=== PATIENT | female | born 1960 | race Caucasian/White ===

== ENCOUNTER 2015-12-20 15:02 | Outpatient (RCR) | payer BC ==
[~2015-12-20 15:02] MED LIST: ACET500C4 PO; ACHD5005 PO; HYDR-34 PO; HYDR-3583 PO; LISI-552 PO; LISI1TAB PO; LISI1TAB6 PO; LORA0.5T PO; MORP-34 PO; MORP100T37 PO; ONDANSETRON 8 MG, DEXAMETHASONE 4 MG/NS 50 ML IVPB (Cancer Ctr) IV SCH; OXYC5TAB71 PO
[2016-06-07] MEDS ORDERED: PROM25TA14 PO (16:29)
== END 2016-03-19 | disposition home or self-care (01) ==
LOC: PAR 15:02
PROVIDERS: ATTEND Internal Medicine Hematology & Oncology
DX: C20 Malignant neoplasm of rectum (principal); I10 Essential (primary) hypertension; Z79.899 Other long term (current) drug therapy; Z92.21 Personal history of antineoplastic chemotherapy; Z92.3 Personal history of irradiation
CPT/HCPCS: 96374

== ENCOUNTER 2016-02-27 12:45 | Outpatient (RCR) | payer BC, MEDICAID ==
[2015-12-05 13:47] LABS: BASOPHILS # (AUTO) 0.1 10^3/uL (0.0-0.1); BASOPHILS % (AUTO) 3 % (0-10); EOSINOPHILS # (AUTO) 0.4 10^3/uL (0.0-0.3); EOSINOPHILS % (AUTO) 12 % (0-10); LYMPHOCYTES # (AUTO) 0.9 X 10^3 (1.0-4.0); LYMPHOCYTES % (AUTO) 29 % (12-44); MEAN CORPUSCULAR HEMOGLOBIN 28 PG (25-34); MEAN CORPUSCULAR HGB CONC 32 G/DL (32-36); MEAN CORPUSCULAR VOLUME 86 FL (80-99); MEAN PLATELET VOLUME 8.6 FL (7.4-10.4); MONOCYTES # (AUTO) 0.4 X 10^3 (0.0-1.0); MONOCYTES % (AUTO) 12 % (0-12); NEUTROPHILS # (AUTO) 1.5 X 10^3 (1.8-7.8); NEUTROPHILS % (AUTO) 45 % (42-75); PLATELET COUNT 329 10^3/uL (130-400); RED BLOOD COUNT 3.61 10^6/uL (4.35-5.85); RED CELL DISTRIBUTION WIDTH 15.1 % (10.0-14.5); WHITE BLOOD COUNT 3.3 10^3/uL (4.3-11.0)
[2015-12-05 14:19] LABS: ALANINE AMINOTRANSFERASE 17 U/L (0-55); ALBUMIN 3.4 G/DL (3.2-4.5); ANION GAP 12 MMOL/L (5-14); ASPARTATE AMINO TRANSFERASE 14 U/L (5-34); BILIRUBIN,TOTAL 0.1 MG/DL (0.1-1.0); BLOOD UREA NITROGEN 11 MG/DL (7-18); BUN/CREATININE RATIO 13; CALCIUM 8.8 MG/DL (8.5-10.1); CARBON DIOXIDE 21 MMOL/L (21-32); CHLORIDE 106 MMOL/L (98-107); CREATININE SERUM 0.88 MG/DL (0.60-1.30); GFR ESTIMATED > 60; GLUCOSE 104 MG/DL (70-105); MAGNESIUM 1.5 MG/DL (1.8-2.4); POTASSIUM 3.6 MMOL/L (3.6-5.0); SODIUM 139 MMOL/L (135-145); TOTAL PROTEIN 6.2 G/DL (6.4-8.2)
[2015-12-18 14:07] LABS: BASOPHILS # (AUTO) 0.1 10^3/uL (0.0-0.1); BASOPHILS % (AUTO) 2 % (0-10); EOSINOPHILS # (AUTO) 0.4 10^3/uL (0.0-0.3); EOSINOPHILS % (AUTO) 10 % (0-10); LYMPHOCYTES # (AUTO) 0.9 X 10^3 (1.0-4.0); LYMPHOCYTES % (AUTO) 20 % (12-44); MEAN CORPUSCULAR HEMOGLOBIN 29 PG (25-34); MEAN CORPUSCULAR HGB CONC 33 G/DL (32-36); MEAN CORPUSCULAR VOLUME 88 FL (80-99); MEAN PLATELET VOLUME 7.9 FL (7.4-10.4); MONOCYTES # (AUTO) 0.4 X 10^3 (0.0-1.0); MONOCYTES % (AUTO) 10 % (0-12); NEUTROPHILS # (AUTO) 2.6 X 10^3 (1.8-7.8); NEUTROPHILS % (AUTO) 59 % (42-75); PLATELET COUNT 325 10^3/uL (130-400); RED BLOOD COUNT 3.14 10^6/uL (4.35-5.85); RED CELL DISTRIBUTION WIDTH 16.2 % (10.0-14.5); WHITE BLOOD COUNT 4.4 10^3/uL (4.3-11.0)
[2015-12-18 14:33] LABS: ALANINE AMINOTRANSFERASE 22 U/L (0-55); ALBUMIN 3.4 G/DL (3.2-4.5); ANION GAP 10 MMOL/L (5-14); ASPARTATE AMINO TRANSFERASE 15 U/L (5-34); BILIRUBIN,TOTAL 0.3 MG/DL (0.1-1.0); BLOOD UREA NITROGEN 11 MG/DL (7-18); BUN/CREATININE RATIO 13; CARBON DIOXIDE 26 MMOL/L (21-32); CHLORIDE 102 MMOL/L (98-107); CREATININE SERUM 0.83 MG/DL (0.60-1.30); GFR ESTIMATED > 60; GLUCOSE 96 MG/DL (70-105); MAGNESIUM 1.5 MG/DL (1.8-2.4); POTASSIUM 3.7 MMOL/L (3.6-5.0); SODIUM 138 MMOL/L (135-145); TOTAL PROTEIN 6.1 G/DL (6.4-8.2)
[2016-01-02 11:31] LABS: BASOPHILS # (AUTO) 0.1 10^3/uL (0.0-0.1); BASOPHILS % (AUTO) 3 % (0-10); EOSINOPHILS # (AUTO) 0.3 10^3/uL (0.0-0.3); EOSINOPHILS % (AUTO) 6 % (0-10); LYMPHOCYTES # (AUTO) 0.8 X 10^3 (1.0-4.0); LYMPHOCYTES % (AUTO) 21 % (12-44); MEAN CORPUSCULAR HEMOGLOBIN 28 PG (25-34); MEAN CORPUSCULAR HGB CONC 32 G/DL (32-36); MEAN CORPUSCULAR VOLUME 90 FL (80-99); MEAN PLATELET VOLUME 8.2 FL (7.4-10.4); MONOCYTES # (AUTO) 0.6 X 10^3 (0.0-1.0); MONOCYTES % (AUTO) 14 % (0-12); NEUTROPHILS # (AUTO) 2.3 X 10^3 (1.8-7.8); NEUTROPHILS % (AUTO) 57 % (42-75); PLATELET COUNT 280 10^3/uL (130-400); RED BLOOD COUNT 3.03 10^6/uL (4.35-5.85); RED CELL DISTRIBUTION WIDTH 17.6 % (10.0-14.5)
[2016-01-02 12:04] LABS: ALANINE AMINOTRANSFERASE 15 U/L (0-55); ALBUMIN 3.4 G/DL (3.2-4.5); ANION GAP 8 MMOL/L (5-14); ASPARTATE AMINO TRANSFERASE 11 U/L (5-34); BILIRUBIN,TOTAL 0.2 MG/DL (0.1-1.0); BLOOD UREA NITROGEN 8 MG/DL (7-18); BUN/CREATININE RATIO 9; CALCIUM 8.3 MG/DL (8.5-10.1); CARBON DIOXIDE 25 MMOL/L (21-32); CHLORIDE 107 MMOL/L (98-107); CREATININE SERUM 0.85 MG/DL (0.60-1.30); GFR ESTIMATED > 60; GLUCOSE 126 MG/DL (70-105); MAGNESIUM 1.4 MG/DL (1.8-2.4); POTASSIUM 3.8 MMOL/L (3.6-5.0); SODIUM 140 MMOL/L (135-145); TOTAL PROTEIN 6.1 G/DL (6.4-8.2)
[2016-01-15 11:11] LABS: BASOPHILS # (AUTO) 0.1 10^3/uL (0.0-0.1); BASOPHILS % (AUTO) 1 % (0-10); EOSINOPHILS # (AUTO) 0.1 10^3/uL (0.0-0.3); EOSINOPHILS % (AUTO) 3 % (0-10); LYMPHOCYTES # (AUTO) 0.7 X 10^3 (1.0-4.0); LYMPHOCYTES % (AUTO) 13 % (12-44); MEAN CORPUSCULAR HEMOGLOBIN 30 PG (25-34); MEAN CORPUSCULAR HGB CONC 32 G/DL (32-36); MEAN CORPUSCULAR VOLUME 92 FL (80-99); MONOCYTES # (AUTO) 0.3 X 10^3 (0.0-1.0); MONOCYTES % (AUTO) 6 % (0-12); NEUTROPHILS % (AUTO) 77 % (42-75); PLATELET COUNT 311 10^3/uL (130-400); RED BLOOD COUNT 3.32 10^6/uL (4.35-5.85); RED CELL DISTRIBUTION WIDTH 19.1 % (10.0-14.5); WHITE BLOOD COUNT 5.2 10^3/uL (4.3-11.0)
[2016-01-15 11:35] LABS: ALANINE AMINOTRANSFERASE 11 U/L (0-55); ALBUMIN 3.8 G/DL (3.2-4.5); ANION GAP 9 MMOL/L (5-14); ASPARTATE AMINO TRANSFERASE 14 U/L (5-34); BILIRUBIN,TOTAL 0.3 MG/DL (0.1-1.0); BLOOD UREA NITROGEN 11 MG/DL (7-18); BUN/CREATININE RATIO 14; CALCIUM 8.9 MG/DL (8.5-10.1); CARBON DIOXIDE 25 MMOL/L (21-32); CHLORIDE 108 MMOL/L (98-107); GFR ESTIMATED > 60; GLUCOSE 119 MG/DL (70-105); MAGNESIUM 1.5 MG/DL (1.8-2.4); POTASSIUM 3.7 MMOL/L (3.6-5.0); SODIUM 142 MMOL/L (135-145); TOTAL PROTEIN 6.5 G/DL (6.4-8.2)
[2016-01-30 13:36] LABS: BASOPHILS # (AUTO) 0.1 10^3/uL (0.0-0.1); BASOPHILS % (AUTO) 2 % (0-10); EOSINOPHILS # (AUTO) 0.4 10^3/uL (0.0-0.3); EOSINOPHILS % (AUTO) 5 % (0-10); LYMPHOCYTES # (AUTO) 1.1 X 10^3 (1.0-4.0); LYMPHOCYTES % (AUTO) 13 % (12-44); MEAN CORPUSCULAR HEMOGLOBIN 30 PG (25-34); MEAN CORPUSCULAR HGB CONC 32 G/DL (32-36); MEAN CORPUSCULAR VOLUME 92 FL (80-99); MEAN PLATELET VOLUME 8.4 FL (7.4-10.4); MONOCYTES # (AUTO) 0.7 X 10^3 (0.0-1.0); MONOCYTES % (AUTO) 8 % (0-12); NEUTROPHILS # (AUTO) 5.8 X 10^3 (1.8-7.8); NEUTROPHILS % (AUTO) 72 % (42-75); PLATELET COUNT 381 10^3/uL (130-400); RED BLOOD COUNT 3.57 10^6/uL (4.35-5.85); RED CELL DISTRIBUTION WIDTH 18.5 % (10.0-14.5)
[2016-01-30 14:02] LABS: ALANINE AMINOTRANSFERASE 10 U/L (0-55); ALBUMIN 3.9 G/DL (3.2-4.5); ANION GAP 10 MMOL/L (5-14); ASPARTATE AMINO TRANSFERASE 16 U/L (5-34); BILIRUBIN,TOTAL 0.3 MG/DL (0.1-1.0); BLOOD UREA NITROGEN 11 MG/DL (7-18); BUN/CREATININE RATIO 13; CALCIUM 9.2 MG/DL (8.5-10.1); CARBON DIOXIDE 24 MMOL/L (21-32); CHLORIDE 105 MMOL/L (98-107); CREATININE SERUM 0.85 MG/DL (0.60-1.30); GFR ESTIMATED > 60; GLUCOSE 113 MG/DL (70-105); MAGNESIUM 1.6 MG/DL (1.8-2.4); POTASSIUM 3.3 MMOL/L (3.6-5.0); SODIUM 139 MMOL/L (135-145); TOTAL PROTEIN 6.9 G/DL (6.4-8.2)
[2016-02-01 15:39] LABS: ANION GAP 10 MMOL/L (5-14); BLOOD UREA NITROGEN 15 MG/DL (7-18); BUN/CREATININE RATIO 19; CALCIUM 8.2 MG/DL (8.5-10.1); CARBON DIOXIDE 21 MMOL/L (21-32); CHLORIDE 110 MMOL/L (98-107); GFR ESTIMATED > 60; GLUCOSE 136 MG/DL (70-105); MAGNESIUM 1.6 MG/DL (1.8-2.4); POTASSIUM 3.4 MMOL/L (3.6-5.0); SODIUM 141 MMOL/L (135-145)
[2016-02-13 11:14] LABS: BASOPHILS # (AUTO) 0.1 10^3/uL (0.0-0.1); BASOPHILS % (AUTO) 3 % (0-10); EOSINOPHILS # (AUTO) 0.4 10^3/uL (0.0-0.3); EOSINOPHILS % (AUTO) 10 % (0-10); LYMPHOCYTES # (AUTO) 0.9 X 10^3 (1.0-4.0); LYMPHOCYTES % (AUTO) 24 % (12-44); MEAN CORPUSCULAR HEMOGLOBIN 29 PG (25-34); MEAN CORPUSCULAR HGB CONC 31 G/DL (32-36); MEAN CORPUSCULAR VOLUME 93 FL (80-99); MEAN PLATELET VOLUME 8.8 FL (7.4-10.4); MONOCYTES # (AUTO) 0.4 X 10^3 (0.0-1.0); MONOCYTES % (AUTO) 11 % (0-12); NEUTROPHILS % (AUTO) 53 % (42-75); PLATELET COUNT 327 10^3/uL (130-400); RED BLOOD COUNT 3.21 10^6/uL (4.35-5.85); RED CELL DISTRIBUTION WIDTH 16.9 % (10.0-14.5); WHITE BLOOD COUNT 3.8 10^3/uL (4.3-11.0)
[2016-02-13 11:39] LABS: ALANINE AMINOTRANSFERASE 11 U/L (0-55); ALBUMIN 3.5 G/DL (3.2-4.5); ANION GAP 11 MMOL/L (5-14); ASPARTATE AMINO TRANSFERASE 15 U/L (5-34); BILIRUBIN,TOTAL 0.3 MG/DL (0.1-1.0); BLOOD UREA NITROGEN 11 MG/DL (7-18); BUN/CREATININE RATIO 14; CALCIUM 8.4 MG/DL (8.5-10.1); CARBON DIOXIDE 21 MMOL/L (21-32); CHLORIDE 107 MMOL/L (98-107); GFR ESTIMATED > 60; GLUCOSE 106 MG/DL (70-105); MAGNESIUM 1.4 MG/DL (1.8-2.4); POTASSIUM 3.4 MMOL/L (3.6-5.0); SODIUM 139 MMOL/L (135-145); TOTAL PROTEIN 6.3 G/DL (6.4-8.2)
[2016-02-18 13:46] LABS: BASOPHILS # (AUTO) 0.1 10^3/uL (0.0-0.1); BASOPHILS % (AUTO) 2 % (0-10); EOSINOPHILS # (AUTO) 0.3 10^3/uL (0.0-0.3); EOSINOPHILS % (AUTO) 6 % (0-10); LYMPHOCYTES # (AUTO) 0.8 X 10^3 (1.0-4.0); LYMPHOCYTES % (AUTO) 16 % (12-44); MEAN CORPUSCULAR HEMOGLOBIN 29 PG (25-34); MEAN CORPUSCULAR HGB CONC 32 G/DL (32-36); MEAN CORPUSCULAR VOLUME 90 FL (80-99); MEAN PLATELET VOLUME 8.5 FL (7.4-10.4); MONOCYTES # (AUTO) 0.5 X 10^3 (0.0-1.0); MONOCYTES % (AUTO) 10 % (0-12); NEUTROPHILS # (AUTO) 3.2 X 10^3 (1.8-7.8); NEUTROPHILS % (AUTO) 66 % (42-75); PLATELET COUNT 448 10^3/uL (130-400); RED BLOOD COUNT 3.05 10^6/uL (4.35-5.85); RED CELL DISTRIBUTION WIDTH 16.5 % (10.0-14.5); WHITE BLOOD COUNT 4.8 10^3/uL (4.3-11.0)
[2016-02-18 14:17] LABS: ANION GAP 9 MMOL/L (5-14); BLOOD UREA NITROGEN 6 MG/DL (7-18); BUN/CREATININE RATIO 7; CARBON DIOXIDE 24 MMOL/L (21-32); CHLORIDE 104 MMOL/L (98-107); CREATININE SERUM 0.88 MG/DL (0.60-1.30); GFR ESTIMATED > 60; GLUCOSE 129 MG/DL (70-105); POTASSIUM 3.3 MMOL/L (3.6-5.0); SODIUM 137 MMOL/L (135-145)
[~2016-02-27] VITALS: Ht 162.6 cm; Wt 88.0 kg
[~2016-02-27 12:45] MED LIST changes: +ALTEPLASE 2 MG (CATHFLO) CANCER CENTER IV ONE; +ATROPINE INJ 0.4 MG/ML SDV (CANCER CENTER) INJ SCH; +D5W IV ONE; +D5W IV SCH; +FAMOTIDINE 20MG/2ML IV (CANCER CTR) IV SCH; +FLUOROURACIL 400 MG in SYRINGE-IVPB 1 SYRINGE IV SCH; +FOSAPREPITANT 150 MG/NS 150 MG IVPB (CANCER CTR) IV PRN; +IRINOTECAN HCL IV SCH; +LEUCOVORIN CALCIUM 350 MG, LEUCOVORIN CALCIUM 50 MG in D5W 250 ML IVPB (CANCER CTR) 250 ML IV SCH; +LEUCOVORIN CALCIUM IV SCH; +LORazepam INJ 2 MG/ML VIAL CANCER CTR IV SCH; +MAGNESIUM SULFATE (CANCER CTR) 3 GM in NS (IVPB) CANCER CENTER 100 ML IV ONE; +MAGNESIUM SULFATE IV ONE; +NS IV 1000 ML (CANCER CTR) IV SCH; +NS IV 500 ML (CANCER CENTER) 500 ML ONE; +NS IV SCH; +PALONOSETRON 0.25 MG, DEXAMETHASONE 10 MG/NS 50 ML IVPB IV PRN; +PANITUMUMAB IV SCH; +POTASSIUM CHL IV ONE; +[UNRECOGNIZED DRUG - OTHER] IV ONE; +[UNRECOGNIZED DRUG - OTHER] IV SCH
[2016-02-27] MEDS ORDERED: ALTEPLASE 2 MG (CATHFLO) CANCER CENTER IV ONE (13:15)
[2016-02-27 13:19] LABS: BASOPHILS # (AUTO) 0.1 10^3/uL (0.0-0.1); BASOPHILS % (AUTO) 1 % (0-10); EOSINOPHILS # (AUTO) 0.3 10^3/uL (0.0-0.3); EOSINOPHILS % (AUTO) 3 % (0-10); LYMPHOCYTES # (AUTO) 0.9 X 10^3 (1.0-4.0); LYMPHOCYTES % (AUTO) 11 % (12-44); MEAN CORPUSCULAR HEMOGLOBIN 29 PG (25-34); MEAN CORPUSCULAR HGB CONC 31 G/DL (32-36); MEAN CORPUSCULAR VOLUME 94 FL (80-99); MEAN PLATELET VOLUME 8.2 FL (7.4-10.4); MONOCYTES # (AUTO) 0.4 X 10^3 (0.0-1.0); MONOCYTES % (AUTO) 4 % (0-12); NEUTROPHILS # (AUTO) 6.8 X 10^3 (1.8-7.8); NEUTROPHILS % (AUTO) 81 % (42-75); PLATELET COUNT 356 10^3/uL (130-400); RED BLOOD COUNT 3.25 10^6/uL (4.35-5.85); RED CELL DISTRIBUTION WIDTH 16.9 % (10.0-14.5); WHITE BLOOD COUNT 8.4 10^3/uL (4.3-11.0)
[2016-02-27] MEDS ORDERED: NS IV 500 ML (CANCER CENTER) 500 ML ONE ×2 (13:36→14:48)
[2016-02-27] MEDS ORDERED: morphine INJ 4 MG/ML 1 ML (CANCER CTR) ONE ×2 (13:36→14:07)
[2016-02-27 13:44] LABS: ALANINE AMINOTRANSFERASE 8 U/L (0-55); ALBUMIN 3.5 G/DL (3.2-4.5); ANION GAP 9 MMOL/L (5-14); ASPARTATE AMINO TRANSFERASE 16 U/L (5-34); BILIRUBIN,TOTAL 0.2 MG/DL (0.1-1.0); BLOOD UREA NITROGEN 6 MG/DL (7-18); BUN/CREATININE RATIO 7; CARBON DIOXIDE 26 MMOL/L (21-32); CHLORIDE 103 MMOL/L (98-107); CREATININE SERUM 0.92 MG/DL (0.60-1.30); GFR ESTIMATED > 60; GLUCOSE 113 MG/DL (70-105); MAGNESIUM 1.7 MG/DL (1.8-2.4); POTASSIUM 3.9 MMOL/L (3.6-5.0); SODIUM 138 MMOL/L (135-145); TOTAL PROTEIN 6.6 G/DL (6.4-8.2)
[2016-02-27] MEDS ORDERED: morphine INJ 4 MG/ML 1 ML (CANCER CTR) IV PRN (14:15)
[2016-06-07] MEDS ORDERED: PROM25TA14 PO (16:29)
== END 2016-03-04 | disposition home or self-care (01) ==
LOC: ONC 12:45
PROVIDERS: ATTEND Internal Medicine Hematology & Oncology
DX: Z51.11 Encounter for antineoplastic chemotherapy (principal); C20 Malignant neoplasm of rectum; C79.19 Secondary malignant neoplasm of other urinary organs; T85.9XXA Unspecified complication of internal prosthetic device, implant and graft, initial encounter; N39.0 Urinary tract infection, site not specified; D64.9 Anemia, unspecified; I10 Essential (primary) hypertension; Z79.899 Other long term (current) drug therapy; Z92.3 Personal history of irradiation; Z93.6 Other artificial openings of urinary tract status
CPT/HCPCS: 36415; 36591; 36593; 80048; 80053; 82378; 83735; 85025; 87077; 87088; 87186; 96360; 96361; 96365; 96367; 96368; 96374; 96375; 96376; 96413; 96415; 96417; 96521; 99213

== ENCOUNTER → 2016-03-05 | Outpatient (CLI) | payer OTHER ==
[~2016-03-05] MED LIST changes: -ALTEPLASE 2 MG (CATHFLO) CANCER CENTER IV ONE; -ATROPINE INJ 0.4 MG/ML SDV (CANCER CENTER) INJ SCH; +BARIUM SUSPENSION 2.1% (VANILLA SILQ) 450 ML PO ONE; +CATHETER FLUSH 10 ML SYR IV PRN; -D5W IV ONE; -D5W IV SCH; -FAMOTIDINE 20MG/2ML IV (CANCER CTR) IV SCH; -FLUOROURACIL 400 MG in SYRINGE-IVPB 1 SYRINGE IV SCH; -FOSAPREPITANT 150 MG/NS 150 MG IVPB (CANCER CTR) IV PRN; +IOHEXOL 350 MG/ML 100 ML (OMNIPAQUE 350) VIAL IV ONE; -IRINOTECAN HCL IV SCH; -LEUCOVORIN CALCIUM 350 MG, LEUCOVORIN CALCIUM 50 MG in D5W 250 ML IVPB (CANCER CTR) 250 ML IV SCH; -LEUCOVORIN CALCIUM IV SCH; -LORazepam INJ 2 MG/ML VIAL CANCER CTR IV SCH; -MAGNESIUM SULFATE (CANCER CTR) 3 GM in NS (IVPB) CANCER CENTER 100 ML IV ONE; -MAGNESIUM SULFATE IV ONE; +NS 100 ML (IVPB) BAG IV ONE; -NS IV 1000 ML (CANCER CTR) IV SCH; -NS IV 500 ML (CANCER CENTER) 500 ML ONE; -NS IV SCH; +ONDA8TAB12 PO; -ONDANSETRON 8 MG, DEXAMETHASONE 4 MG/NS 50 ML IVPB (Cancer Ctr) IV SCH; -PALONOSETRON 0.25 MG, DEXAMETHASONE 10 MG/NS 50 ML IVPB IV PRN; -PANITUMUMAB IV SCH; +PANT40TA3 PO; -POTASSIUM CHL IV ONE; +PROM25TA14 PO; +SORB1SOL2 PO; +SULF1TAB35 PO; +TRIF1TAB7 PO; -[UNRECOGNIZED DRUG - OTHER] IV ONE; -[UNRECOGNIZED DRUG - OTHER] IV SCH
--- NOTE | 2016-03-05 13:23 | Diagnostic Imaging Report ---
PROCEDURE: CT chest, abdomen, and pelvis with contrast. TECHNIQUE: Multiple contiguous axial images were obtained through the chest, abdomen, and pelvis after the administration of intravenous contrast. INDICATION: Adenocarcinoma of the rectum. CONTRAST: 100 ML of Omnipaque 350 is administered intravenously. FINDINGS: CT chest: There are multiple pulmonary nodules, some appear stable from the prior exam such as the 7 mm nodule in the left upper lobe and 4 mm nodule in the right middle lobe. There are, however, a few nodules such as 5 mm nodule in the right lower lobe, image 26, and 5 mm nodule in the right lung apex and more posteriorly 5 mm nodule in the apex as well. These appear to be minimally more prominent compared to the previous study and are concerning for lung metastases. There is no significant consolidation or large nodule. There is no mediastinal mass. There is no mediastinal, hilar, or axillary lymphadenopathy seen. The thoracic aorta is slightly ectatic with no david aneurysm. The heart size is slightly prominent with no pericardial or pleural effusion. Right-sided infusion port with the tip at the SVC level is seen. The osseous structures appear grossly unremarkable. CT abdomen and pelvis: The liver, the gallbladder, the spleen, the pancreas, and the adrenal glands appear unremarkable. The kidneys demonstrate bilateral nephrostomies. There is mild atrophy in the left kidney. There is symmetric enhancement seen in both kidneys. The delayed phase images demonstrate contrast in the renal collecting system and the calyces without significant filling of the renal pelvis and without filling of the urinary bladder. This might relate to drainage through the nephrostomy tubes and persistent distal ureteric obstruction. In the pelvis, there is a complex mass with necrotic or cystic component seen in the upper central aspect of the pelvis. This is measuring 5.8 x 6.1 cm compared to 5.8 x 5.6 cm when measured in similar fashion. This mass is in the location of the uterus. There is persistent soft tissue fullness in the presacral region as well. Some portions of the mass is difficult to separate from adjacent small bowel loops which unfortunately are not well opacified despite giving oral contrast in this exam. There is no definite change from the previous exam. The conglomerate mass around the region of the upper rectum presacral area is 8.5 x 5.4 cm, not significantly changed when measured in a similar fashion compared to the previous exam. The abdominal aorta demonstrates normal caliber. No para-aortic significantly enlarged lymph nodes seen. There are no discrete enlarged lymph nodes in the pelvis identified. There is a right colostomy with parastomal small bowel nonobstructed hernia seen. Urinary bladder wall thickening is similar to prior exams and is probably related to chronic cystitis. The osseous structures appear grossly unremarkable. IMPRESSION: CT chest: There are multiple subcentimeter pulmonary nodules that appear more prominent compared to the previous study concerning for metastatic disease. CT abdomen and pelvis: There is a large heterogeneous pelvic mass with cystic or necrotic components without definite change from the previous study. Dictated by: Dictated on workstation # [id number]
== END ==
LOC: RAD 11:59
PROVIDERS: ATTEND Nurse Practitioner Adult Health
DX: C20 Malignant neoplasm of rectum (principal)
CPT/HCPCS: 71260; 74177

== ENCOUNTER → 2016-04-09 | Outpatient (CLI) | payer MEDICAID, OTHER ==
[~2016-04-09] VITALS: Ht 165.1 cm; Wt 87.5 kg
[~2016-04-09] MED LIST changes: -BARIUM SUSPENSION 2.1% (VANILLA SILQ) 450 ML PO ONE; -CATHETER FLUSH 10 ML SYR IV PRN; -IOHEXOL 350 MG/ML 100 ML (OMNIPAQUE 350) VIAL IV ONE; -NS 100 ML (IVPB) BAG IV ONE
[2016-04-09 09:31] VITALS: BP 138/88
--- NOTE | 2016-04-09 14:01 | Diagnostic Imaging Report ---
EXAMINATION: Nephrostomy tube change- right Nephrostogram INDICATION: Bilateral distal ureteric obstruction with pelvic mass. CONSENT: Informed consent was obtained from the patient. The risks, benefits, potential complications and alternatives were reviewed and all questions answered to the patient's satisfaction. The patient's vital signs, cardiac rhythm, and pulse oximetry were observed throughout the procedure by qualified nursing personnel. Sedation: None. Other Medications: None. Contrast: 20 mL of Isovue 300. Fluoroscopy time: One minute and 33 seconds. PROCEDURE: After maximal sterile barrier technique preparation and draping, though the area of the nephrostomy tube and the tube itself, contrast injection is performed via the existing tube. This demonstrates the pigtail loop to be in the renal pelvis. Under fluoroscopic guidance, a glidewire is introduced into the 12 Swiss existing tube. Then exchange successfully performed. A new Mac-Loc 12 Swiss nephrostomy tube is introduced over the wire and the pigtail in the is formed within the renal pelvis. Contrast injection was performed subsequently to confirm positioning of the tube and perform a nephrostogram. The patient tolerated the procedure well with no immediate complications. FINDINGS: Aemt view of the abdomen demonstrates the the existing nephrostomy tube. The after contrast injection the pigtail appears to be within the renal pelvis. . Nephrostogram demonstrates ureteric stent in place. High-grade ureteric obstruction is some noted with complete obstruction at the mid ureter. No filling of the bladder seen. IMPRESSION: 1. Successful exchange of right nephrostomy tube with a new 12 Swiss tube. 2. Nephrostogram demonstrates complete right mid ureteric obstruction. Dictated by: Dictated on workstation # [id number]
--- NOTE | 2016-04-09 14:03 | Diagnostic Imaging Report ---
EXAMINATION: Nephrostomy tube change/left Nephrostogram INDICATION: Rectal cancer with the ureteric obstruction bilaterally in the pelvis. CONSENT: Informed consent was obtained from the patient. The risks, benefits, potential complications and alternatives were reviewed and all questions answered to the patient's satisfaction. The patient's vital signs, cardiac rhythm, and pulse oximetry were observed throughout the procedure by qualified nursing personnel. Sedation: None. Other Medications: None. Contrast: 20 mL of Isovue 300. Fluoroscopy time: One minute and 33 seconds PROCEDURE: After maximal sterile barrier technique preparation and draping, though the area of the nephrostomy tube and the tube itself, contrast injection is performed via the existing tube. This demonstrates the pigtail loop to be in the renal pelvis. Under fluoroscopic guidance, a glide wire is introduced into the renal pelvis, and the existing tube is removed over the guidewire. A new Mac lock 12 Uzbek nephrostomy tube is introduced over the wire and the pigtail in the is formed within the renal pelvis. Contrast injection was performed subsequently to confirm positioning of the tube and perform a nephrostogram. The patient tolerated the procedure well with no immediate complications. FINDINGS: Director Of Teaching And Learning view of the abdomen demonstrates the the existing nephrostomy tube. The after contrast injection the pigtail appears to be within the renal pelvis. Ureteric stent is in place. Nephrostogram demonstrates left mild hydronephrosis. There is complete ureteric obstruction at the mid ureteric level with no contrast seen reaching to the urinary bladder despite presence of a ureteric stent. IMPRESSION: 1. Successful exchange of new 12 Uzbek left nephrostomy tube placed. 2. Nephrostogram demonstrates complete mid left ureteric obstruction. Dictated by: Dictated on workstation # [id number]
== END ==
LOC: RAD 09:19
PROVIDERS: ATTEND Internal Medicine Hematology & Oncology
DX: N13.39 Other hydronephrosis (principal); C20 Malignant neoplasm of rectum
CPT/HCPCS: 49465; 50435

== ENCOUNTER → 2016-06-07 | Emergency (ER) | payer OTHER ==
[~2016-06-07] VITALS: Ht 162.6 cm; Wt 80.7 kg
--- NOTE | 2016-06-07 16:27 | ED GU-Female ---
General Chief Complaint: -Female Stated Complaint: R NEPHROSTOMY TUBE PULLED OUT Nursing Triage Note: PT REPORTS HER RIGHT NEPHROSTOMY TUBE FELL OUT DURING THE NIGHT. IT WAS PLACED BY DR SCHNEIDER. SHE REPORTS THEY ARE REPLACED EVERY 3 MONTHS. ALSO C/O NAUSEA X 3 DAYS. Nursing Sepsis Screen: No Definite Risk Source: patient, family (daughter), spouse Exam Limitations: no limitations History of Present Illness Time seen by provider: 16:06 Initial Comments 55-year-old female patient presents to the emergency Department with reports of her nephrostomy tube "falling out." Patient states it must and cold during the night. Reports urine has been leaking around the nephrostomy tube. Tube was placed by Dr. Schneider on 04/09/16. Is scheduled to have her next tube change on June 30. Timing/Duration: this morning Severity/Quality: moderate Activities at Onset: sleep Allergies and Home Medications Allergies Coded Allergies: oxaliplatin (Verified Allergy, Intermediate, 04/26/14) RASH ON FEET AND HANDS Home Medications Morphine Sulfate 100 Mg Tablet.er, 100 MG PO BID, (Reported) Oxycodone HCl 5 Mg Tablet, 5-10 MG PO Q4H PRN for BREAKTHROUGH PAIN, (Reported) TAKES 1-2 (5MG) TABLETS Promethazine HCl 25 Mg Tablet, 25 MG PO Q6H PRN for NAUSEA/VOMITING, #20 Ref 0 Prescribed by: RENATA CHAVEZ on 06/07/16 1629 Constitutional: No chills, No fever, No malaise Respiratory: no symptoms reported Cardiovascular: no symptoms reported Gastrointestinal: No abdominal pain, No constipation, No diarrhea, loss of appetite, nausea (chronic nausea, worse the last 3 days.), No vomiting Genitourinary: see HPI, denies burning, denies dysuria, denies frequency, denies flank pain, denies hematuria, denies pain Musculoskeletal: no symptoms reported Skin: no symptoms reported Psychiatric/Neurological: No Symptoms Reported All Other Systemes Reviewed Negative Unless Noted: Yes (Negative excepted noted.) Past Butjpme-Qfirmk-Tfckee Hx Patient Social History Recent Foreign Travel: No Contact w/Someone Who Travel: No Recent Infectious Disease Expo: No Immunizations Up To Date Tetanus Booster (TDap): Less than 5yrs PED Vaccines UTD: No Date of Pneumonia Vaccine: Mar 02, 2004 Surgeries HX Surgeries: Yes (BOWEL RESECTION/ILEOSTOMY; nephrostomy tube placement.) Respiratory Hx Respiratory Disorders: No Cardiovascular Hx Cardiac Disorders: Yes Neurological Hx Neurological Disorders: No Reproductive System Hx Reproductive Disorders: No Sexually Transmitted Disease: No HIV/AIDS: No Female Reproductive Disorders: Denies Genitourinary Hx Genitourinary Disorders: No Gastrointestinal Hx Gastrointestinal Disorders: Yes (RECTAL CANCER) Musculoskeletal Hx Musculoskeletal Disorders: No Endocrine Hx Endocrine Disorders: No HEENT HX ENT Disorders: No Cancer Hx Cancer: Yes Cancer: Rectal Psychosocial Hx Psychiatric Problems: No Integumentary HX Skin/Integumentary Disorder: No Blood Transfusions Hx Blood Disorders: No Adverse Reaction to a Blood Tr: No Reviewed Nursing Assessment Reviewed/Agree w Nursing PMH: Yes Family Medical History Significant Family History: No Pertinent Family Hx Family Medial History: Diabetes mellitus 19 MOTHER Hypertension 19 FATHER Physical Exam Vital Signs Vital Sign - Last 12Hours 06/07/16 15:09 Temp 99.6 Pulse 111 Resp 18 B/P (MAP) 141/85 Capillary Refill : Less Than 3 Seconds General Appearance: WD/WN, no apparent distress Cardiovascular: regular rate, rhythm, no murmur Respiratory: lungs clear, normal breath sounds, no respiratory distress Gastrointestinal: non tender, soft, No distended Back: no CVA tenderness, other (left nephrostomy tube intact w/o cellulitis or drainage. Right nephrostomy pigtail drain malpositioned with approx 7 cm of tube (distal to the flange) visible. no active drainage at the time of evaluation, however patient is noted to have urine on the shirt and pants overlying this area. no evidence of cellulitis noted.) Neurologic/Psychiatric: alert, oriented x 3, depressed affect Skin: normal color, warm/dry, other (left nephrostomy tube intact w/o cellulitis or drainage. Right nephrostomy pigtail drain malpositioned with approx 7 cm of tube (distal to the flange) visible. no active drainage at the time of evaluation, however patient is noted to have urine on the shirt and pants overlying this area. no evidence of cellulitis noted.) Progress/Results/Core Measures Results/Orders Vital Signs/I&O Vital Sign - Last 12Hours 06/07/16 15:09 Temp 99.6 Pulse 111 Resp 18 B/P (MAP) 141/85 Blood Pressure Mean: 103 Departure Communication Progress Notes Patient seen and evaluated. Patient does not want pigtail drain removed completely at this time. Would like to wait until Thursday to see Dr. Schneider. Have instructed the patient contact Dr. Schneider in radiology first thing Thursday to schedule new nephrostomy tube placement. All return precautions were discussed with the patient as described in the discharge instructions of this report. Patient voices understanding and agrees with the treatment plan. Impression Impression: Primary Impression: Nephrostomy tube displaced Additional Impression: Nausea Disposition: 01 HOME, SELF-CARE Condition: Improved Departure-Patient Inst. Decision time for Depature: 16:29 Referrals: NO,LOCAL PHYSICIAN (PCP/Family) Primary Care Physician Patient Instructions: How to Care for Your Nephrostomy Tube Add. Discharge Instructions: All discharge instructions reviewed with patient and/or family. Voiced understanding. Medications as instructed. Continue usual home medications. Contact radiology first thing Thursday for scheduling nephrostomy tube replacement. Follow-up with your family practitioner and oncologist as previously scheduled. Return to the emergency department immediately for worsened symptoms, pain, vomiting, decreased urination, blood in the urine, or any other concerns. Scripts Promethazine HCl (Promethazine Tablet) 25 Mg Tablet 25 MG PO Q6H Y for NAUSEA/VOMITING, #20 TAB 0 Refills Prov: RENATA CHAVEZ 06/07/16 RENATA CHAVEZ Jun 07, 2016 16:27
[2016-06-07 16:34] VITALS: BP 141/85
--- OUTSIDE RECORDS SUMMARY | 2016-07-13 04:56 | XMS REPORT ---
Author Dimas De La Torre Organization [facility] Address [address] [place], [place] [id number] Care Team Providers Care Stoker Mechanic Name Role Phone Dimas Carmen PCP Unavailable Allergies and Adverse Reactions Name Reaction Notes NO KNOWN DRUG ALLERGIES Plan of Treatment Not available. Medications Not available. Problem List Not available. Vital Signs Date Time BP-Sys(mm[Hg] BP-Alyce(mm[Hg]) HR(bpm) RR(rpm) Temp WT HT HC BMI BSA BMI Percentile O2 Sat(%) 04/26/2015 11:16:00 AM 196 lbs 62 in 35.85 kg/m2 1.97 m2 03/06/2015 10:55:00 AM 196 lbs 62 in 35.8485 kg/m 1.9721 m Social History Name Description Comments Tobacco Never smoker denies alcohol use Caffeine Current every day Walking 2-3x a week History of Procedures Date Ordered Description Order Status 02/07/2015 12:00 AM MICROBIOLOGY PROCEDURE Reviewed 02/09/2015 12:00 AM ELECTROCARDIOGRAM COMPLETE Reviewed 04/26/2015 12:00 AM MICROBIOLOGY PROCEDURE Returned Results Summary Data and Description Results 02/12/2015 9:50 AM WBC 6.4 RBC 3.96 HGB 11.80 g/dLHCT 36.70 %MCV 93.0 fLMCH 29.80 pgMCHC 32.20 g/dLRDW CV 13.40 %MPV 9.40 fLPLT 234 %NEUT 79.70 %%LYMP 12.90 %%MONO 4.20 %%EOS 2.40 %%BASO 0.80 %#NEUT 5.08 #LYMP 0.82 #MONO 0.27 #EOS 0.15 #BASO 0.05 GLUCOSE 105.0 mg/dLSODIUM 142.0 mmol/LPOTASSIUM 4.0 mmol/ LCHLORIDE 103.0 mmol/LCO2 27.0 mmol/LBUN 21.0 mg/dLCREATININE 1.70 mg/dLCALCIUM 9.80 mg/dLeGFR 31 02/12/2015 1:00 PM COLOR YELLOW APPEARANCE HAZY SPEC GRAV <=1.005 pH 7.0 PROTEIN NEGATIVE GLUCOSE NEGATIVE mg/dLKETONE NEGATIVE BILIRUBIN NEGATIVE BLOOD LARGE NITRITE NEGATIVE LEUK SCREEN SMALL CASTS/LPF NEGATIVE /LPFCRYSTALS NEGATIVE MUCOUS THRDS NEGATIVE BACTERIA FEW EPITH CELLS FEW RENAL / HPFTRICHOMONAS NEGATIVE YEAST NEGATIVE History Of Immunizations Not available. History of Past Illness Name Date of Onset Comments Colon cancer Hypertension Numbness and Tingling UTI (urinary tract infection) Feb 07 2015 12:43PM Pre-op evaluation Feb 09 2015 1:51PM Hematuria Apr 26 2015 11:51AM Hx of recurrent urinary tract infection Apr 26 2015 11:51AM Payers Insurance Name Company Name Plan Name Plan Number Policy Number Policy Group Number Start Date BCBS [facility] [id number] N/A [employer] [place] [employer] [place] [id number] N/A History of Encounters Visit Date Visit Type Provider 06/11/2015 Hospital V Scar Carmen MD 04/26/2015 Office visit V Scar Carmen MD 03/26/2015 [facility] V Scar Carmen MD 03/06/2015 Office visit V Scar Carmen MD 02/12/2015 [facility] Neyda Paz MD 02/12/2015 [facility] V Scar Carmen MD 02/07/2015 Office visit V Scar Carmen MD
--- OUTSIDE RECORDS SUMMARY | 2016-07-13 04:57 | XMS REPORT ---
Author Dimas De La Torre Organization [facility] Address [address] [place], [place] [id number] Care Team Providers Care Community Affairs Director Name Role Phone Dimas Carmen PCP Unavailable [...] Number Policy Group Number Start Date BCBS [facility] [id number] N/A [employer] [place] [employer] [place] [id number] N/A History of Encounters Visit Date Visit Type Provider 06/11/2015 Hospital V Scar Carmen MD 04/26/2015 Office visit V Scar Carmen MD 03/26/2015 [facility] V Scar Carmen MD 03/06/2015 Office visit V Scar Carmen MD 02/12/2015 [facility] Neyda Paz MD 02/12/2015 [facility] V Scar Carmen MD 02/07/2015 Office visit V Scar Carmen MD
--- OUTSIDE RECORDS SUMMARY | 2016-07-13 04:57 | XMS REPORT | CCD ---
Author Author GEOVANNI PRITCHARD Organization Unknown Address [address] [facility] [address] [place], [place] [id number] Care Team Providers Care Towel Rolling Machine Operator Name Role Phone Dimas MOORE MD Attphys Vital Signs Vital Sign Value Unit Date/Time Recent/Initial? Weight Measured 194 lbs 03/23/2015 12:32 Initial VS Height 64 in 03/23/2015 12:32 Initial VS BMI (Body Mass Index) 33.3 kg/m^2 03/23/2015 12:32 Initial VS BSA (Body Surface Area) 1.99 m^2 03/23/2015 12:32 Initial VS BP Systolic 87 mmHg 03/26/2015 07:46 Initial VS BP Diastolic 47 mmHg 03/26/2015 07:46 Initial VS Respiratory Rate 11 bpm 03/26/2015 07:46 Initial VS Heart Rate 75 bpm 03/26/2015 07:46 Initial VS O2 % BldC Oximetry 100 % 03/26/2015 07:46 Initial VS BP Systolic 103 mmHg 03/26/2015 08:16 Most Recent VS BP Diastolic 63 mmHg 03/26/2015 08:16 Most Recent VS Respiratory Rate 10 bpm 03/26/2015 08:16 Most Recent VS Heart Rate 67 bpm 03/26/2015 08:16 Most Recent VS O2 % BldC Oximetry 99 % 03/26/2015 08:16 Most Recent VS Allergies Allergy Code Allergy Type Reaction Status NKDA - NO KNOWN DRUG ALLERGIES 0 Drug allergy Active Procedures Procedure Code Procedure Type Date Cystourethroscopy, with insertion of indwelling ureteral stent; (-50 Bilat 00483 CPT 03/26/2015 FLUOROSCOPY < [id number] 03/26/2015 History of Immunizations Immunization Code Date Hep B, adult 43 04/09/2001 Problems Unknown or Not Available. Results Unknown or Not Available. Active Medications No Active Medications Medications Administered During Visit Unknown or Not Available. Encounters Encounter Diagnosis Diagnosis Code Start Date Unspecified hydronephrosis N1330 03/26/2015 Social History Smoking Status Code Start Date End Date Never smoker [id number] Patient Decision Aids Patient Decision Aid CYSTOSCOPY; AFTER THE PROCEDURE Discharge Instructions You were admitted to [facility] on 03/26/2015 with a principal diagnosis of Unspecified hydronephrosis. You had the following procedures done: CYSTOSCOPY AND TREATMENT You were discharged from [facility] on 03/26/2015. Should you have any questions prior to discharge, please contact a member of your healthcare team. If you have left the hospital and have any questions, please contact your primary care physician. Chief Complaint and Reason For Visit Chief Complaint Date of Onset CYSTO STENT INSERTION Function Status Unknown or Not Available. Plan of Care Unknown or Not Available. Referral/Transition of Care Unknown or Not Available.
--- OUTSIDE RECORDS SUMMARY | 2016-07-13 04:57 | XMS REPORT ---
Author Dimas De La Torre Organization [facility] Address [address] [place], [place] [id number] Care Team Providers Care Manager Solar Name Role Phone Dimas Carmen PCP Unavailable Allergies and Adverse Reactions Name Reaction Notes NO KNOWN DRUG ALLERGIES Plan of Treatment Planned Activity Comments Planned Date Planned Time Plan/Goal X-RAY EXAM OF ABDOMEN 10/17/2015 12:00 AM URINALYSIS AUTO W/O SCOPE 10/17/2015 12:00 AM Medications Not available. Problem List Not available. [...] urinary tract infection Apr 26 2015 11:51AM Hx of renal failure Oct 17 2015 2:29PM Recurrent UTI Oct 17 2015 2:29PM Payers Insurance Name Company Name Plan Name Plan Number Policy Number Policy Group Number Start Date BCBS [facility] [id number] N/A [employer] [place] [employer] [place] [id number] N/A History of Encounters Visit Date Visit Type Provider 06/11/2015 Hospital Dimas Carmen MD 04/26/2015 Office visit Dimas Carmen MD 03/26/2015 [facility] Dimas Carmen MD 03/06/2015 Office visit Dimas Carmen MD 02/12/2015 [facility] Nedya Paz MD 02/12/2015 [facility] Dimas Carmen MD 02/07/2015 Office visit Dimas Carmen MD
--- OUTSIDE RECORDS SUMMARY | 2016-07-13 04:58 | XMS REPORT | CCD ---
Author Author ИРИНА CAMPBELL Unknown Address [address] [place] [address] Care Team Providers Care Head Of Marketing Analytics Name Role Phone Dimas MOORE MD Attphys Allergies Allergy Code Allergy Type Reaction Status NKDA - NO KNOWN DRUG ALLERGIES 0 Drug allergy Active Active Medications No Active Medications Problems Unknown or Not Available. Procedures Procedure Code Procedure Type Date Removal of Intraluminal Device from Ureter, Via Natural or Artificial Open [id number] ICD-10 PCS 12/03/2015 .ECG STANDARD 12 LEAD (LAB) [id number] SNOMED CT 2015 Results Unknown or Not Available. Function Status Unknown or Not Available. History of Immunizations Immunization Code Date Hep B, adult 43 04/09/2001 Plan of Treatment Unknown or Not Available. Social History Smoking Status Code Start Date End Date Never smoker [id number] Vital Signs Vital Sign Value Unit Date/Time Recent/Initial? Weight Measured 182 [lb_av] 11/30/2015 11:18 Initial VS Height 65 [in_i] 11/30/2015 11:18 Initial VS BMI (Body Mass Index) 30.29 kg/m2 11/30/2015 11:18 Initial VS BSA (Body Surface Area) 1.95 m2 11/30/2015 11:18 Initial VS Heart Rate 80 /min 12/03/2015 09:19 Initial VS BP Systolic 108 mm[Hg] 12/03/2015 09:21 Initial VS BP Diastolic 72 mm[Hg] 12/03/2015 09:21 Initial VS Respiratory Rate 21 /min 12/03/2015 09:21 Initial VS O2 % BldC Oximetry 99 % 12/03/2015 09:21 Initial VS BP Systolic 118 mm[Hg] 12/03/2015 09:56 Most Recent VS BP Diastolic 83 mm[Hg] 12/03/2015 09:56 Most Recent VS Respiratory Rate 15 /min 12/03/2015 09:59 Most Recent VS Heart Rate 82 /min 12/03/2015 09:59 Most Recent VS O2 % BldC Oximetry 100 % 12/03/2015 09:59 Most Recent VS Function Status Unknown or Not Available. Goals Unknown or Not Available. ASSESSMENTS Unknown or Not Available. Health Concerns Section Unknown or Not Available.
--- OUTSIDE RECORDS SUMMARY | 2016-07-13 04:58 | XMS REPORT | CCD ---
Author Author ИРИНА CAMPBELL Unknown Address [address] [facility] [address] [place], [place] [phone] Care Team Providers Care Start Up Specialist Name Role Phone Dimas MOORE MD Attphys Vital Signs Unknown or Not Available. Allergies Allergy Code Allergy Type Reaction Status NKDA - NO KNOWN DRUG ALLERGIES 0 Drug allergy Active Procedures Procedure Code Procedure Type Date Cystourethroscopy, with biopsy(s) 71533 CPT 10/29/2015 PATHOLOGY ORDER [id number] SNOMED CT 10/29/2015 History of Immunizations Immunization Code Date Hep B, adult 43 04/09/2001 Problems Unknown or Not Available. Results Unknown or Not Available. Active Medications Unknown or Not Available. Medications Administered During Visit Unknown or Not Available. 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 If you have left the hospital and have any questions, please contact your primary care physician. Chief Complaint and Reason For Visit Chief Complaint Date of Onset URO CYSTO STENT INSERTION Function Status Unknown or Not Available. Plan of Care Unknown or Not Available. Referral/Transition of Care Unknown or Not Available.
--- OUTSIDE RECORDS SUMMARY | 2016-07-13 04:58 | XMS REPORT ---
Author Dimas De La Torre Organization [facility] Address [address] [place], [place] [phone] Care Team Providers Care Newspaper Editor Managing Name Role Phone Dimas Carmen PCP Unavailable [...] Number Policy Group Number Start Date BCBS [facility] [id number] N/A [employer] [place] [employer] [place] [id number] N/A History of Encounters Visit Date Visit Type Provider 06/11/2015 Hospital V Scar Carmen MD 04/26/2015 Office visit V Scar Carmen MD 03/26/2015 [facility] V Scar Carmen MD 03/06/2015 Office visit V Scar Carmen MD 02/12/2015 [facility] Neyda Paz MD 02/12/2015 [facility] V Scar Carmen MD 02/07/2015 Office visit V Scar Carmen MD
--- OUTSIDE RECORDS SUMMARY | 2016-07-13 04:58 | XMS REPORT ---
Author Dimas De La Torre Organization [facility] Address [address] [place], [place] [phone] Care Team Providers Care Locker Plant Attendant Name Role Phone Dimas Carmen PCP Unavailable [...] Policy Number Policy Group Number Start Date [employer] [place] [employer] [place] [id number] N/A History of Encounters Visit Date Visit Type Provider 04/26/2015 Office visit V Scar Carmen MD 03/26/2015 [facility] V Scar Carmen MD 03/06/2015 Office visit V Scar Carmen MD 02/12/2015 [facility] Neyda Paz MD 02/12/2015 [facility] Dimas Carmen MD 02/07/2015 Office visit Dimas Carmen MD
--- OUTSIDE RECORDS SUMMARY | 2016-07-13 04:58 | XMS REPORT ---
Author Dimas De La Torre Organization [facility] Address [address] [place], [place] [address] Care Team Providers Care Cap And Hat Production Supervisor Name Role Phone Dimas Carmen PCP Unavailable Allergies and Adverse Reactions Name Reaction Notes NO KNOWN DRUG ALLERGIES Plan of Treatment Planned Activity Comments Planned Date Planned Time Plan/Goal MICROBIOLOGY PROCEDURE 04/26/2015 12:00 AM Medications Not available. Problem List [...] Reviewed 02/09/2015 12:00 AM ELECTROCARDIOGRAM COMPLETE Reviewed Results Summary Data and Description Results 02/12/2015 [...] Number Policy Group Number Start Date [employer] [place] [employer] [place] [id number] N/A History of Encounters Visit Date Visit Type Provider 04/26/2015 Office visit V Scar Carmen MD 03/26/2015 Hospital V Scar Carmen MD 03/06/2015 Office visit Dimas Carmen MD 02/12/2015 [facility] Neyda Paz MD 02/12/2015 [facility] Dimas Carmen MD 02/07/2015 Office visit Dimas Carmen MD
--- OUTSIDE RECORDS SUMMARY | 2016-07-13 04:59 | XMS REPORT ---
Author Dimas De La Torre [facility] Address [address] [place], [place] [address] Care Team Providers Care Roller Varnisher Name Role Phone Dimas Carmen PCP Unavailable Allergies and Adverse Reactions Name Reaction Notes NO KNOWN DRUG ALLERGIES Plan of Treatment Planned Activity Comments Planned Date Planned Time Plan/Goal ELECTROCARDIOGRAM COMPLETE 02/09/2015 12:00 AM Medications Not available. Problem List Not available. Vital Signs Not available. Social History Name Description Comments Tobacco Never smoker denies alcohol use Caffeine Current every day Walking 2-3x a week History of Procedures Date Ordered Description Order Status 02/07/2015 12:00 AM MICROBIOLOGY PROCEDURE Reviewed Results Summary Not available. History Of Immunizations Not available. History of Past Illness Name Date of Onset Comments Colon cancer Hypertension Numbness and Tingling UTI (urinary tract infection) Feb 07 2015 12:43PM Pre-op evaluation Feb 09 2015 1:51PM Payers Insurance Name Company Name Plan Name Plan Number Policy Number Policy Group Number Start Date [employer] [place] [employer] [place] [id number] N/A History of Encounters Visit Date Visit Type Provider 02/07/2015 Office visit Dimas Carmen MD
--- OUTSIDE RECORDS SUMMARY | 2016-07-13 04:59 | XMS REPORT ---
Author Dimas De La Torre Organization [facility] Address [address] [place], [place] [phone] Care Team Providers Care Director Of Emergency Nursing Name Role Phone Dimas Carmen PCP Unavailable [...] Reviewed 04/26/2015 12:00 AM MICROBIOLOGY PROCEDURE Returned 10/17/2015 12:00 AM X-RAY EXAM OF ABDOMEN Reviewed 10/17/2015 12:00 AM URNLS DIP STICK/TABLET RGNT AUTO W/O MICROSCOPY Reviewed Results Summary Data and Description Results [...] FEW RENAL / HPFTRICHOMONAS NEGATIVE YEAST NEGATIVE 10/18/2015 2:20 PM COLOR YELLOW APPEARANCE CLEAR SPEC GRAV >=1.030 pH 5.5 PROTEIN 100 GLUCOSE NEGATIVE mg/dLKETONE NEGATIVE BILIRUBIN NEGATIVE BLOOD LARGE NITRITE NEGATIVE LEUK SCREEN SMALL CASTS/LPF NEGATIVE /LPFCRYSTALS NEGATIVE MUCOUS THRDS NEGATIVE BACTERIA FEW EPITH CELLS FEW SQUAMOUS / HPFTRICHOMONAS NEGATIVE YEAST NEGATIVE History Of [...] Number Policy Group Number Start Date BCBS [facility] [id number] N/A [employer] [place] [employer] [place] State Plan [id number] N/A History of Encounters Visit Date Visit Type Provider 06/11/2015 [facility] Dimas Carmen MD 04/26/2015 Office visit V Scar Carmen MD 03/26/2015 [facility] Dimas Carmen MD 03/06/2015 Office visit Dimas Carmen MD 02/12/2015 [facility] Neyda Paz MD 02/12/2015 [facility] Dimas Carmen MD 02/07/2015 Office visit Dimas Carmen MD
--- OUTSIDE RECORDS SUMMARY | 2016-07-13 04:59 | XMS REPORT ---
Author Dimas De La Torre [facility] Address [address] [facility] [address] [place], [place] [address] Care Team Providers Care Lock Corner Machine Operator Name Role Phone Dimas Carmen PCP Unavailable Allergies and Adverse Reactions Not available. Plan of Treatment Planned Activity Comments Planned Date Planned Time Plan/Goal MICROBIOLOGY PROCEDURE 02/07/2015 12:00 AM Medications Not available. Problem List Not available. Vital Signs Not available. Social History Not available. History of Procedures Not available. Results Summary Not available. History Of Immunizations Not available. History of Past Illness Name Date of Onset Comments UTI (urinary tract infection) Feb 07 2015 12:43PM Payers Insurance Name Company Name Plan Name Plan Number Policy Number Policy Group Number Start Date [employer] [place] [employer] [place] [id number] N/A History of Encounters Visit Date Visit Type Provider 02/07/2015 Office visit Dimas Carmen MD
--- OUTSIDE RECORDS SUMMARY | 2016-07-13 05:06 | XMS REPORT | Continuity of Care Document ---
Author Author [facility] Address Unknown Phone Unavailable Allergies Active Description Code Type Severity Reaction Onset Reported/Identified Relationship to Patient Clinical Status Yes No Known Drug Allergies [id number] Drug Allergy Unknown N/ A 11/21/2011 Yes oxaliplatin [id number] Drug Allergy Moderate N/A 06/26/2016 Medications Problems Date Dx Coded Attending Type Code Diagnosis Diagnosed By 01/29/1019 JAKE JOSEPH Ot C20 MALIGNANT NEOPLASM OF RECTUM 01/29/1019 JAKE JOSEPH Ot I10 ESSENTIAL (PRIMARY) HYPERTENSION 01/29/1019 JAKE JOSEPH Ot Z51.11 ENCOUNTER FOR ANTINEOPLASTIC CHEMOTHERAP 01/29/1019 JAKE JOSEPH Ot Z79.899 OTHER SUPERINTENDENT FISH HATCHERY (CURRENT) DRUG THERAPY 01/29/1019 JAKE JOSEPH Ot Z92.21 PERSONAL HISTORY OF ANTINEOPLASTIC CHEMO 01/29/1019 JAKE JOSEPH Ot Z92.3 PERSONAL HISTORY OF IRRADIATION 05/16/2011 GUTIERREZ CUEVAS DO 455.6 HEMORRHOIDS NOS 05/16/2011 GUTIERREZ CUEVAS DO 578.1 HEMATOCHEZIA 05/16/2011 BRIDGET BELL MD 455.6 HEMORRHOIDS NOS 05/16/2011 BRIDGET BELL MD 578.1 HEMATOCHEZIA 05/16/2011 SHIKHA SENA MD 455.6 HEMORRHOIDS NOS 05/16/2011 SHIKHA SENA MD 578.1 HEMATOCHEZIA 05/16/2011 SHIKHA SENA MD 455.6 HEMORRHOIDS NOS 05/16/2011 SHIKHA SENA MD 578.1 HEMATOCHEZIA 05/16/2011 SHIKHA SENA MD 455.6 HEMORRHOIDS NOS 05/16/2011 SHIKHA SENA MD 578.1 HEMATOCHEZIA 05/16/2011 SHIKHA SENA MD 455.6 HEMORRHOIDS NOS 05/16/2011 SHIKHA SENA MD 578.1 HEMATOCHEZIA 05/16/2011 KELSEA SANTANA APRN R 455.6 HEMORRHOIDS NOS 05/16/2011 KELSEA SANTANA APRN R 578.1 HEMATOCHEZIA 10/06/2011 STEPHANIE CUEVAS DOA K 154.1 MALIGNANT NEOPLASM OF RECTUM 10/06/2011 BRIDGET BELL MD A 154.1 MALIGNANT NEOPLASM OF RECTUM 10/06/2011 SHIKHA SENA MD 154.1 MALIGNANT NEOPLASM OF RECTUM 10/06/2011 SHIKHA SENA MD 154.1 MALIGNANT NEOPLASM OF RECTUM 10/06/2011 SHIKHA SENA MD 154.1 MALIGNANT NEOPLASM OF RECTUM 10/06/2011 SHIKHA SENA MD 154.1 MALIGNANT NEOPLASM OF RECTUM 10/06/2011 KELSEA SANTANA APRN R 154.1 MALIGNANT NEOPLASM OF RECTUM 10/24/2011 FAITH GREENE GUTIERREZ K 154.1 RECTAL NEOPLASM MALIGNANT CARCINOMA 10/24/2011 FAITH GREENE GUTIERREZ K 300.00 anxiety 10/24/2011 FAITH GREENE GUTIERREZ K 401.1 ESSENTIAL HYPERTENSION BENIGN 10/24/2011 BRIDGET BELL MD A 154.1 RECTAL NEOPLASM MALIGNANT CARCINOMA 10/24/2011 BRIDGET BELL MD A 300.00 anxiety 10/24/2011 BRIDGET BELL MD A 401.1 ESSENTIAL HYPERTENSION BENIGN 10/24/2011 SHIKHA SENA MD 154.1 RECTAL NEOPLASM MALIGNANT CARCINOMA 10/24/2011 WILMAN SENA MDATI 300.00 anxiety 10/24/2011 WILMAN SENA MDATI 401.1 ESSENTIAL HYPERTENSION BENIGN 10/24/2011 WILMAN SENA MDATI 154.1 RECTAL NEOPLASM MALIGNANT CARCINOMA 10/24/2011 NATHEN HULL SHIKHA 300.00 anxiety 10/24/2011 WILMAN SENA MDATI 401.1 ESSENTIAL HYPERTENSION BENIGN 10/24/2011 WILMAN SENA MDATI 154.1 RECTAL NEOPLASM MALIGNANT CARCINOMA 10/24/2011 WILMAN SENA MDATI 300.00 anxiety 10/24/2011 WILMAN SENA MDATI 401.1 ESSENTIAL HYPERTENSION BENIGN 10/24/2011 WILMAN SENA MDATI 154.1 RECTAL NEOPLASM MALIGNANT CARCINOMA 10/24/2011 NATHEN MD, SHIKHA 300.00 anxiety 10/24/2011 NATHEN HULL, SHIKHA 401.1 ESSENTIAL HYPERTENSION BENIGN 10/24/2011 DANIELLA SANTANA APRNIA R 154.1 RECTAL NEOPLASM MALIGNANT CARCINOMA 10/24/2011 ESTHER ARAMBULA, KELSEA R 300.00 anxiety 10/24/2011 KELSEA SANTANA APRN R 401.1 ESSENTIAL HYPERTENSION BENIGN 10/25/2012 JANESSA HULL, LEEANN Germain Ot 154.1 MALIGNANT NEOPL RECTUM 10/25/2012 JANESSA HULL, LEEANN Germain Ot 558.9 NONINF GASTROENTERIT NEC 11/14/2012 JANESSA HULL, LEEANN Germain Ot 401.9 HYPERTENSION NOS 11/14/2012 JANESSA HULL, LEEANN Germain Ot V10.06 HX-RECTAL ANAL MALIGN 11/14/2012 JANESSA HULL, LEEANN Germain Ot V55.2 ATTEN TO ILEOSTOMY 09/28/2013 JANESSA HULL, LEEANN Germain Ot 569.89 INTESTINAL DISORDERS NEC 09/28/2013 JANESSA HULL, LEEANN Germain Ot V10.06 HX-RECTAL ANAL MALIGN 10/19/2013 JANESSA HULL, LEEANN Germain Ot 154.3 10/19/2013 JANESSA HULL, LEEANN Germain Ot 401.9 10/19/2013 JANESSA HULL, LEEANN Germain Ot 788.20 11/02/2013 JANESSA HULL, LEEANN Germain Ot 154.1 11/02/2013 JANESSA HULL, LEEANN Germain Ot V74.8 02/02/2014 JAKE JOSEPH N Ot 154.1 02/02/2014 SUSANAJAKE DE SOUZA N Ot 401.9 02/02/2014 SUSANAJAKE DE SOUZA N Ot V15.3 02/02/2014 SUSANAKAT DE SOUZAAN N Ot V58.69 02/02/2014 SUSANAKAT DE SOUZAAN N Ot V87.41 02/14/2014 Ot 154.1 02/14/2014 Ot 401.9 02/14/2014 Ot V15.3 02/14/2014 Ot V58.69 02/14/2014 Ot V87.41 02/15/2014 SUSANAJAKE DE SOUZA N Ot 154.1 02/15/2014 SUSANAJAKE DE SOUZA N Ot 401.9 02/15/2014 SUSANAJAKE DE SOUZA N Ot V15.3 02/15/2014 SUSANAJAKE DE SOUZA N Ot V58.11 02/15/2014 SUSANA, BOBAN N Ot V58.69 02/15/2014 SUSANA, BOBAN N Ot V87.41 02/21/2014 JANESSA HULL, LEEANN M Ot 154.1 02/21/2014 JANESSA HULL, LEEANN M Ot V72.63 02/21/2014 JANESSA HULL, LEEANN M Ot V74.8 02/21/2014 JANESSA HULL, LEEANN M Ot 154.1 02/21/2014 JANESSA HULL, LEEANN M Ot V72.84 02/21/2014 BARBOZA MIRA S STATISTICAL METHODS TEACHER Ot 154.1 02/21/2014 BARBOZA HILAH S STATISTICAL METHODS TEACHER Ot 401.9 02/21/2014 BARBOZA HILAH S STATISTICAL METHODS TEACHER Ot V15.3 02/21/2014 BARBOZA HILAH S STATISTICAL METHODS TEACHER Ot V58.69 02/21/2014 BARBOZA, HILAH S STATISTICAL METHODS TEACHER Ot V87.41 02/21/2014 Ot 154.1 02/21/2014 Ot 401.9 02/21/2014 Ot V15.3 02/21/2014 Ot V58.69 02/21/2014 Ot V87.41 02/21/2014 SUSANA, BOBAN N Ot 154.1 02/21/2014 SUSANA, BOBAN N Ot 401.9 02/21/2014 SUSANA, BOBAN N Ot V15.3 02/21/2014 SUSANA, BOBAN N Ot V58.69 02/21/2014 SUSANA, BOBAN N Ot V87.41 02/21/2014 SUSANA, BOBAN N Ot 154.1 02/21/2014 SUSANA, BOBAN N Ot 401.9 02/21/2014 SUSANA, BOBAN N Ot V15.3 02/21/2014 SUSANA, BOBAN N Ot V58.69 02/21/2014 SUSANA, BOBAN N Ot V87.41 02/21/2014 SUSANA, BOBAN N Ot 154.1 02/21/2014 SUSANA, BOBAN N Ot 401.9 02/21/2014 SUSANA, BOBAN N Ot V15.3 02/21/2014 SUSANA, BOBAN N Ot V58.69 02/21/2014 SUSANA, BOBAN N Ot V87.41 02/22/2014 SUSANA, BOBAN N Ot 154.1 02/22/2014 SUSANA, BOBAN N Ot 401.9 02/22/2014 SUSANA, BOBAN N Ot V15.3 02/22/2014 SUSANA, BOBAN N Ot V58.69 02/22/2014 SUSANA, BOBAN N Ot V87.41 03/15/2014 SUSANA, BOBAN N Ot 154.1 03/15/2014 SUSANA, BOBAN N Ot 401.9 03/15/2014 SUSANA, BOBAN N Ot V15.3 03/15/2014 SUSANA, BOBAN N Ot V58.11 03/15/2014 SUSANA, BOBAN N Ot V58.69 03/15/2014 SUSANA, BOBAN N Ot V87.41 03/30/2014 MIRA BARBOZA S STATISTICAL METHODS TEACHER Ot 154.1 03/30/2014 BARBOZAMIRA Khan S STATISTICAL METHODS TEACHER Ot 401.9 03/30/2014 MIRA BARBOZA S STATISTICAL METHODS TEACHER Ot V15.3 03/30/2014 JABARI HILKUSUM S STATISTICAL METHODS TEACHER Ot V58.69 03/30/2014 BARBOZAMIRA Khan S STATISTICAL METHODS TEACHER Ot V87.41 04/06/2014 SUSANA, BOBAN N Ot 154.1 04/06/2014 SUSANA, BOBAN N Ot 401.9 04/06/2014 SUSANA, BOBAN N Ot V15.3 04/06/2014 SUSANA, BOBAN N Ot V58.11 04/06/2014 SUSANA, BOBAN N Ot V58.69 04/06/2014 SUSANA, BOBAN N Ot V87.41 04/07/2014 SUSANA, BOBAN N Ot 154.1 04/07/2014 SUSANA, BOBAN N Ot 401.9 04/07/2014 SUSANA, BOBAN N Ot V15.3 04/07/2014 SUSANA, BOBAN N Ot V58.11 04/07/2014 SUSANA, BOBAN N Ot V58.69 04/07/2014 SUSANA, BOBAN N Ot V87.41 04/26/2014 SUSANA, BOBAN N Ot 154.1 04/26/2014 SUSANA, BOBAN N Ot 401.9 04/26/2014 SUSANA, BOBAN N Ot V15.3 04/26/2014 SUSANA, BOBAN N Ot V58.11 04/26/2014 SUSANA, BOBAN N Ot V58.69 04/26/2014 SUSANA, BOBAN N Ot V87.41 04/26/2014 Ot 154.1 04/26/2014 Ot 280.9 04/26/2014 Ot V58.69 04/26/2014 SUSANA, BOBAN N Ot 154.1 04/26/2014 SUSANA, BOBAN N Ot 401.9 04/26/2014 SUSANA, BOBAN N Ot V15.3 04/26/2014 SUSANA, BOBAN N Ot V58.11 04/26/2014 SUSANA, BOBAN N Ot V58.69 04/26/2014 SUSANA, BOBAN N Ot V87.41 05/22/2014 SUSANA, BOBAN N Ot 154.1 05/22/2014 SUSANA, BOBAN N Ot 401.9 05/22/2014 SUSANA, BOBAN N Ot V15.3 05/22/2014 SUSANA, BOBAN N Ot V58.11 05/22/2014 SUSANA, BOBAN N Ot V58.69 05/22/2014 SUSANA, BOBAN N Ot V87.41 05/31/2014 SUSANA, BOBAN N Ot 154.1 05/31/2014 SUSANA, BOBAN N Ot 401.9 05/31/2014 SUSANA, BOBAN N Ot V15.3 05/31/2014 SUSANA, BOBAN N Ot V58.11 05/31/2014 SUSANA, BOBAN N Ot V58.69 05/31/2014 SUSANA, BOBAN N Ot V87.41 05/31/2014 SUSANA, BOBAN N Ot 154.1 05/31/2014 SUSANA, BOBAN N Ot 401.9 05/31/2014 SUSANA, BOBAN N Ot V15.3 05/31/2014 SUSANA, BOBAN N Ot V58.11 05/31/2014 SUSANA, BOBAN N Ot V58.69 05/31/2014 SUSANA, BOBAN N Ot V87.41 06/01/2014 SUSANA, BOBAN N Ot 154.1 06/01/2014 SUSANA, BOBAN N Ot 401.9 06/01/2014 SUSANA, BOBAN N Ot V15.3 06/01/2014 SUSANA, BOBAN N Ot V58.11 06/01/2014 SUSANA, BOBAN N Ot V58.69 06/01/2014 SUSANA, BOBAN N Ot V87.41 06/01/2014 SUSANA, BOBAN N Ot 154.1 06/01/2014 SUSANA, BOBAN N Ot 401.9 06/01/2014 SUSANA, BOBAN N Ot V15.3 06/01/2014 SUSANA, BOBAN N Ot V58.69 06/01/2014 SUSANA, BOBAN N Ot V87.41 06/14/2014 SUSANA, BOBAN N Ot 724.5 06/14/2014 SUSANA, BOBAN N Ot 154.1 06/20/2014 SUSANA, BOBAN N Ot 154.1 06/20/2014 SUSANA, BOBAN N Ot 401.9 06/20/2014 SUSANA, BOBAN N Ot V15.3 06/20/2014 SUSANA, BOBAN N Ot V58.69 06/20/2014 SUSANA, BOBAN N Ot V87.41 06/20/2014 SUSANA, BOBAN N Ot 154.1 06/20/2014 SUASNA, BOBAN N Ot 154.1 06/21/2014 JANESSA HULL, LEEANN Germain Ot 569.89 06/21/2014 MIRA BARBOZA STATISTICAL METHODS TEACHER Ot 154.1 06/21/2014 MIRA BARBOZA STATISTICAL METHODS TEACHER Ot 401.9 06/21/2014 MIRA BARBOZA STATISTICAL METHODS TEACHER Ot V15.3 06/21/2014 MIRA BARBOZA STATISTICAL METHODS TEACHER Ot V58.69 06/21/2014 SUSANA, BOBAN N Ot 154.1 06/21/2014 SUSANA, BOBAN N Ot 280.9 06/21/2014 SUSANA, BOBAN N Ot 401.9 06/21/2014 SUSANA, BOBAN N Ot V15.3 06/21/2014 SUSANA, BOBAN N Ot V58.69 06/21/2014 SUSANA, BOBAN N Ot V87.41 06/21/2014 JANESSA HULL, LEEANN Germain Ot V72.84 06/21/2014 JANESSA HULL, LEEANN Germain Ot 154.1 06/21/2014 JANESSA HULL, LEEANN M Ot V72.84 06/21/2014 JANESSA HULL, LEEANN Germain Ot V74.8 06/21/2014 MIRA BARBOZA STATISTICAL METHODS TEACHER Ot 154.1 06/21/2014 BARBOZAMIRA Khan STATISTICAL METHODS TEACHER Ot 280.9 06/21/2014 JABARIMIRA S STATISTICAL METHODS TEACHER Ot 401.9 06/21/2014 BARBOZAMIRA Khan S STATISTICAL METHODS TEACHER Ot V15.3 06/21/2014 JABARIMIRA S STATISTICAL METHODS TEACHER Ot V58.69 06/21/2014 JABARIMIRA S STATISTICAL METHODS TEACHER Ot V87.41 06/21/2014 JABARIMIRA S STATISTICAL METHODS TEACHER Ot 154.1 06/21/2014 JABARIMIRA S STATISTICAL METHODS TEACHER Ot 401.9 06/21/2014 JABARIMIRA S STATISTICAL METHODS TEACHER Ot V15.3 06/21/2014 JABARIMIRA S STATISTICAL METHODS TEACHER Ot V58.69 06/21/2014 JABARIMIRA S STATISTICAL METHODS TEACHER Ot V87.41 06/21/2014 JANESSA HULL, LEEANN M Ot V72.84 06/21/2014 JAKE JOSEPH N Ot 154.1 06/21/2014 JABARIMIRA STATISTICAL METHODS TEACHER Ot 154.0 06/21/2014 JANESSA HULL, LEEANN M Ot 154.1 06/21/2014 JANESSA HULL, LEEANN M Ot V72.63 06/21/2014 JANESSA HULL, LEEANN M Ot V74.8 06/21/2014 JANESSA HULL, LEEANN M Ot 154.1 06/21/2014 JANESSA HULL, LEEANN M Ot V72.84 06/21/2014 BARBOZAMIRA Khan STATISTICAL METHODS TEACHER Ot 154.1 06/21/2014 JABARIMIRA STATISTICAL METHODS TEACHER Ot 401.9 06/21/2014 JABARIMIRA S STATISTICAL METHODS TEACHER Ot V15.3 06/21/2014 JABARIMIRA S STATISTICAL METHODS TEACHER Ot V58.69 06/21/2014 JABARIMIRA S STATISTICAL METHODS TEACHER Ot V87.41 06/21/2014 Ot 154.1 06/21/2014 Ot 401.9 06/21/2014 Ot V15.3 06/21/2014 Ot V58.69 06/21/2014 Ot V87.41 06/21/2014 JABARIMIRA S STATISTICAL METHODS TEACHER Ot 154.1 06/21/2014 JABARI MIRA S STATISTICAL METHODS TEACHER Ot 401.9 06/21/2014 JABARI MIRA S STATISTICAL METHODS TEACHER Ot V15.3 06/21/2014 BARBOZAMIRA Khan S STATISTICAL METHODS TEACHER Ot V58.69 06/21/2014 JABARIMIRA S STATISTICAL METHODS TEACHER Ot V87.41 06/21/2014 BARBOZAMIRA Khan S STATISTICAL METHODS TEACHER Ot 154.1 06/21/2014 BARBOZAMIRA S STATISTICAL METHODS TEACHER Ot 401.9 06/21/2014 JABARI MIRA S STATISTICAL METHODS TEACHER Ot V15.3 06/21/2014 JABARI MIRA S STATISTICAL METHODS TEACHER Ot V58.69 06/21/2014 BABROZAMIRA S STATISTICAL METHODS TEACHER Ot V87.41 06/21/2014 JAKE JOSEPH N Ot 154.1 06/21/2014 SUSANA, KATAN N Ot 401.9 06/21/2014 JAKE JOSEPH N Ot V15.3 06/21/2014 SUSANAJAKE DE SOUZA N Ot V58.69 06/21/2014 JAKE JOSEPH N Ot V87.41 06/21/2014 JABARIMIRA S STATISTICAL METHODS TEACHER Ot 154.1 06/21/2014 JABARIMIRA S STATISTICAL METHODS TEACHER Ot 401.9 06/21/2014 BARBOZAMIRA Khan S STATISTICAL METHODS TEACHER Ot V15.3 06/21/2014 JABARIMIRA S STATISTICAL METHODS TEACHER Ot V58.69 06/21/2014 JABARI MIRA S STATISTICAL METHODS TEACHER Ot V87.41 06/21/2014 JABARIMIRA S STATISTICAL METHODS TEACHER Ot 154.1 06/21/2014 JABARIMIRA S STATISTICAL METHODS TEACHER Ot 338.18 06/21/2014 JABARIMIRA S STATISTICAL METHODS TEACHER Ot 356.9 06/21/2014 JABARIMIRA S STATISTICAL METHODS TEACHER Ot 795.81 06/21/2014 JABARIMIRA S STATISTICAL METHODS TEACHER Ot V15.3 06/21/2014 JABARIMIRA S STATISTICAL METHODS TEACHER Ot V58.69 06/21/2014 JABARI MIRA S STATISTICAL METHODS TEACHER Ot V87.41 06/21/2014 JABARIMIRA S STATISTICAL METHODS TEACHER Ot 154.1 06/21/2014 JABARIMIRA S STATISTICAL METHODS TEACHER Ot 401.9 06/21/2014 JABARI MIRA S STATISTICAL METHODS TEACHER Ot V15.3 06/21/2014 JABARI MIRA S STATISTICAL METHODS TEACHER Ot V58.69 06/21/2014 JABARI MIRA S STATISTICAL METHODS TEACHER Ot V87.41 06/21/2014 BARBOZAMIRA Khan S STATISTICAL METHODS TEACHER Ot 154.1 06/21/2014 BARBOZAMIRA Khan S STATISTICAL METHODS TEACHER Ot 401.9 06/21/2014 BARBOZAMIRA S STATISTICAL METHODS TEACHER Ot V15.3 06/21/2014 BARBOZAMIRA S STATISTICAL METHODS TEACHER Ot V58.69 06/21/2014 BARBOZAMIRA Khan S STATISTICAL METHODS TEACHER Ot V87.41 06/21/2014 JANESSA HULL, LEEANN M Ot 569.89 06/21/2014 BARBOZAMIRA Khan S STATISTICAL METHODS TEACHER Ot 154.1 06/21/2014 BARBOZAMIRA Khan S STATISTICAL METHODS TEACHER Ot 401.9 06/21/2014 BARBOZAMIRA S STATISTICAL METHODS TEACHER Ot V15.3 06/21/2014 BARBOZAMIRA Khan S STATISTICAL METHODS TEACHER Ot V58.69 06/21/2014 SUSANA, BOBAN N Ot 154.1 06/21/2014 SUSANA, BOBAN N Ot 280.9 06/21/2014 SUSANA, BOBAN N Ot 401.9 06/21/2014 SUSANA, BOBAN N Ot V15.3 06/21/2014 SUSANA, BOBAN N Ot V58.69 06/21/2014 SUSANA, BOBAN N Ot V87.41 06/21/2014 JANESSA HULL, LEEANN M Ot V72.84 06/21/2014 JANESSA HULL, LEEANN M Ot 154.1 06/21/2014 JANESSA HULL, LEEANN M Ot V72.84 06/21/2014 JANESSA HULL, LEEANN M Ot V74.8 06/21/2014 BARBOZAMIRA Khan S STATISTICAL METHODS TEACHER Ot 154.1 06/21/2014 BARBOZAMIRA Khan S STATISTICAL METHODS TEACHER Ot 280.9 06/21/2014 BARBOZAMIRA Khan S STATISTICAL METHODS TEACHER Ot 401.9 06/21/2014 BARBOZAMIRA S STATISTICAL METHODS TEACHER Ot V15.3 06/21/2014 BARBOZAMIRA S STATISTICAL METHODS TEACHER Ot V58.69 06/21/2014 BARBOZAMIRA S STATISTICAL METHODS TEACHER Ot V87.41 06/21/2014 BARBOZAMIRA S STATISTICAL METHODS TEACHER Ot 154.1 06/21/2014 BARBOZA MIRA S STATISTICAL METHODS TEACHER Ot 401.9 06/21/2014 BARBOZA MIRA S STATISTICAL METHODS TEACHER Ot V15.3 06/21/2014 BARBOZAMIRA Khan S STATISTICAL METHODS TEACHER Ot V58.69 06/21/2014 BARBOZAMIRA Khan S STATISTICAL METHODS TEACHER Ot V87.41 06/21/2014 JANESSA HULL, LEEANN M Ot V72.84 06/21/2014 SUSANAJAKE DE SOUZA N Ot 154.1 06/21/2014 BARBOZAMIRA Khan S STATISTICAL METHODS TEACHER Ot 154.0 06/21/2014 BARBOZAMIRA S STATISTICAL METHODS TEACHER Ot 154.1 06/21/2014 BARBOZAMIRA S STATISTICAL METHODS TEACHER Ot 401.9 06/21/2014 BARBOZAMIRA S STATISTICAL METHODS TEACHER Ot V15.3 06/21/2014 BARBOZAMIRA S STATISTICAL METHODS TEACHER Ot V58.69 06/21/2014 BARBOZAMIRA Khan S STATISTICAL METHODS TEACHER Ot V87.41 06/21/2014 SUSANA, BOBAN N Ot 154.1 06/21/2014 SUSANA, BOBAN N Ot 154.1 06/21/2014 SUSANA, BOBAN N Ot 401.9 06/21/2014 SUSANAKAT DE SOUZAAN N Ot V15.3 06/21/2014 SUSANAJAKE DE SOUZA N Ot V58.69 06/21/2014 SUSANAKAT DE SOUZAAN N Ot V87.41 06/21/2014 SUSANA, BOBAN N Ot 154.1 06/21/2014 BARBOZAMIRA Khan S STATISTICAL METHODS TEACHER Ot 154.1 06/21/2014 BARBOZAMIRA Khan S STATISTICAL METHODS TEACHER Ot 338.18 06/21/2014 BARBOZAMIRA Khan S STATISTICAL METHODS TEACHER Ot 356.9 06/21/2014 BARBOZAMIRA Khan S STATISTICAL METHODS TEACHER Ot 795.81 06/21/2014 BARBOZA MIRA S STATISTICAL METHODS TEACHER Ot V15.3 06/21/2014 BARBOZAMIRA S STATISTICAL METHODS TEACHER Ot V58.69 06/21/2014 BARBOZAMIRA S STATISTICAL METHODS TEACHER Ot V87.41 06/21/2014 BARBOZA MIRA S STATISTICAL METHODS TEACHER Ot 154.1 06/21/2014 BARBOZA MIRA S STATISTICAL METHODS TEACHER Ot 401.9 06/21/2014 BARBOZA MIRA S STATISTICAL METHODS TEACHER Ot V15.3 06/21/2014 BARBOZA MIRA S STATISTICAL METHODS TEACHER Ot V58.69 06/21/2014 JABARI MIRA S STATISTICAL METHODS TEACHER Ot V87.41 06/21/2014 SUSANAJAKE DE SOUZA N Ot 154.1 06/21/2014 JAKE JOSEPH N Ot 401.9 06/21/2014 JAKE JOSEPH N Ot V15.3 06/21/2014 JAKE JOSEPH N Ot V58.69 06/21/2014 JAKE JOSEPH N Ot V87.41 06/27/2014 SUSANA, JAKE N Ot 154.1 06/27/2014 SUSANAJAKE DE SOUZA N Ot 401.9 06/27/2014 SUSANAJAKE DE SOUZA N Ot V15.3 06/27/2014 SUSANAJAKE DE SOUZA N Ot V58.69 06/27/2014 JAKE JOSEPH N Ot V87.41 06/30/2014 BARBOZA HILAH S STATISTICAL METHODS TEACHER Ot 154.1 06/30/2014 BARBOZA, HILAH S STATISTICAL METHODS TEACHER Ot 401.9 06/30/2014 BARBOZA, HILAH S STATISTICAL METHODS TEACHER Ot V15.3 06/30/2014 BARBOZA HILAH S STATISTICAL METHODS TEACHER Ot V58.69 06/30/2014 BARBOZA HILAH S STATISTICAL METHODS TEACHER Ot V87.41 07/03/2014 JAKE JOSEPH N Ot 154.1 07/03/2014 JAKE JOSEPH N Ot 401.9 07/03/2014 JAKE JOSEPH N Ot V15.3 07/03/2014 JAKE JOSEPH N Ot V58.69 07/03/2014 JAKE JOSEPH N Ot V87.41 07/17/2014 BARBOZA GINGERAH S STATISTICAL METHODS TEACHER Ot 154.1 07/17/2014 BARBOZA HILAH S STATISTICAL METHODS TEACHER Ot 784.0 07/17/2014 BARBOZA, HILAH S STATISTICAL METHODS TEACHER Ot 787.01 07/21/2014 SUSANA, BOBAN N Ot 154.1 07/29/2014 BARBOZA, HILAH S STATISTICAL METHODS TEACHER Ot 154.1 07/29/2014 BARBOZA, HILAH S STATISTICAL METHODS TEACHER Ot 338.18 07/29/2014 BARBOZA, HILAH S STATISTICAL METHODS TEACHER Ot 356.9 07/29/2014 BARBOZA, HILAH S STATISTICAL METHODS TEACHER Ot 795.81 07/29/2014 BARBOZA HILAH S STATISTICAL METHODS TEACHER Ot V15.3 07/29/2014 BARBOZA HILAH S STATISTICAL METHODS TEACHER Ot V58.69 07/29/2014 BARBOZA HILAH S STATISTICAL METHODS TEACHER Ot V87.41 08/08/2014 JANESSA HULL, LEEANN M Ot 569.89 08/08/2014 BARBOZAMIRA Khan S STATISTICAL METHODS TEACHER Ot 154.1 08/08/2014 BARBOZAMIRA S STATISTICAL METHODS TEACHER Ot 401.9 08/08/2014 BARBOZAMIRA S STATISTICAL METHODS TEACHER Ot V15.3 08/08/2014 BARBOZAMIRA S STATISTICAL METHODS TEACHER Ot V58.69 08/08/2014 JANESSA HULL, LEEANN M Ot 154.1 08/08/2014 JANESSA HULL, LEEANN M Ot V72.63 08/08/2014 JANESSA HULL, LEEANN M Ot V74.8 08/08/2014 JANESSA HULL, LEEANN M Ot 154.1 08/08/2014 JANESSA HULL, LEEANN M Ot V72.84 08/08/2014 BARBOZAMIRA S STATISTICAL METHODS TEACHER Ot 154.1 08/08/2014 BARBOZAMIRA S STATISTICAL METHODS TEACHER Ot 401.9 08/08/2014 BARBOZAMIRA S STATISTICAL METHODS TEACHER Ot V15.3 08/08/2014 BARBOZAMIRA S STATISTICAL METHODS TEACHER Ot V58.69 08/08/2014 BARBOZAMIRA S STATISTICAL METHODS TEACHER Ot V87.41 08/08/2014 Ot 154.1 08/08/2014 Ot 401.9 08/08/2014 Ot V15.3 08/08/2014 Ot V58.69 08/08/2014 Ot V87.41 08/08/2014 BARBOZAMIRA S STATISTICAL METHODS TEACHER Ot 154.1 08/08/2014 BARBOZAMIRA S STATISTICAL METHODS TEACHER Ot 401.9 08/08/2014 BARBOZA, MIRA S STATISTICAL METHODS TEACHER Ot V15.3 08/08/2014 BARBOZAGINGERAH S STATISTICAL METHODS TEACHER Ot V58.69 08/08/2014 BARBOZAMIRA S STATISTICAL METHODS TEACHER Ot V87.41 08/08/2014 BARBOZA, GINGERAH S STATISTICAL METHODS TEACHER Ot 154.1 08/08/2014 BARBOZA, HILAH S STATISTICAL METHODS TEACHER Ot 401.9 08/08/2014 BARBOZA, GINGERAH S STATISTICAL METHODS TEACHER Ot V15.3 08/08/2014 BARBOZA, MIRA S STATISTICAL METHODS TEACHER Ot V58.69 08/08/2014 BARBOZA MIRA S STATISTICAL METHODS TEACHER Ot V87.41 08/08/2014 JAKE JOSEPH Ot 154.1 08/08/2014 JAKE JOSEPH Ot 401.9 08/08/2014 JAKE JOSEPH N Ot V15.3 08/08/2014 JAKE JOSEPH N Ot V58.69 08/08/2014 JAKE JOSEPH N Ot V87.41 08/08/2014 BARBOZAMIRA Khan S STATISTICAL METHODS TEACHER Ot 154.1 08/08/2014 BARBOZAMIRA S STATISTICAL METHODS TEACHER Ot 401.9 08/08/2014 BARBOZAGINGERAH S STATISTICAL METHODS TEACHER Ot V15.3 08/08/2014 BARBOZA, HILAH S STATISTICAL METHODS TEACHER Ot V58.69 08/08/2014 BARBOZAMIRA S STATISTICAL METHODS TEACHER Ot V87.41 08/08/2014 BARBOZAGINGERAH S STATISTICAL METHODS TEACHER Ot 154.1 08/08/2014 BARBOZA, HILAH S STATISTICAL METHODS TEACHER Ot 338.18 08/08/2014 BARBOZA, HILAH S STATISTICAL METHODS TEACHER Ot 356.9 08/08/2014 BARBOZAMIRA S STATISTICAL METHODS TEACHER Ot 795.81 08/08/2014 BARBOZAMIRA S STATISTICAL METHODS TEACHER Ot V15.3 08/08/2014 BARBOZAMIRA S STATISTICAL METHODS TEACHER Ot V58.69 08/08/2014 BARBOZAMIRA S STATISTICAL METHODS TEACHER Ot V87.41 08/08/2014 JANESSA HULL, LEEANN M Ot 154.1 08/08/2014 JANESSA HULL, LEEANN M Ot V72.63 08/08/2014 JANESSA HULL, LEEANN M Ot V74.8 08/08/2014 BARBOZAMIRA Khan S STATISTICAL METHODS TEACHER Ot 154.0 08/08/2014 JAKE JOSEPH N Ot 154.1 08/08/2014 BARBOZAMIRA S STATISTICAL METHODS TEACHER Ot 154.1 08/08/2014 BARBOZAGINGERAH S STATISTICAL METHODS TEACHER Ot 280.9 08/08/2014 BARBOZA, HILAH S STATISTICAL METHODS TEACHER Ot 401.9 08/08/2014 BARBOZA, HILAH S STATISTICAL METHODS TEACHER Ot V15.3 08/08/2014 BARBOZA, HILAH S STATISTICAL METHODS TEACHER Ot V58.69 08/08/2014 BARBOZA, HILAH S STATISTICAL METHODS TEACHER Ot V87.41 08/08/2014 BARBOZA, HILAH S STATISTICAL METHODS TEACHER Ot 154.1 08/08/2014 BARBOZA, HILAH S STATISTICAL METHODS TEACHER Ot 401.9 08/08/2014 BARBOZA, HILAH S STATISTICAL METHODS TEACHER Ot V15.3 08/08/2014 BARBOZAMIRA S STATISTICAL METHODS TEACHER Ot V58.69 08/08/2014 JANESSA HULL, LEEANN M Ot 569.89 08/11/2014 BARBOZAMIRA Khan S STATISTICAL METHODS TEACHER Ot 154.1 08/11/2014 BARBOZAMIRA S STATISTICAL METHODS TEACHER Ot 356.9 08/11/2014 BARBOZAMIRA S STATISTICAL METHODS TEACHER Ot V15.3 08/11/2014 BARBOZAMIRA S STATISTICAL METHODS TEACHER Ot V44.3 08/11/2014 BARBOZA, MIRA S STATISTICAL METHODS TEACHER Ot V58.69 08/11/2014 BARBOZAMIRA S STATISTICAL METHODS TEACHER Ot V87.41 08/11/2014 JANESSA HULL, LEEANN M Ot 569.89 08/11/2014 BARBOZAMIRA Khan S STATISTICAL METHODS TEACHER Ot 154.1 08/11/2014 BARBOZAMIRA S STATISTICAL METHODS TEACHER Ot 401.9 08/11/2014 BARBOZAMIRA S STATISTICAL METHODS TEACHER Ot V15.3 08/11/2014 BARBOZAMIRA Khan S STATISTICAL METHODS TEACHER Ot V58.69 08/11/2014 SUSANA, BOBAN N Ot 154.1 08/11/2014 SUSANA, BOBAN N Ot 280.9 08/11/2014 SUSANA, BOBAN N Ot 401.9 08/11/2014 SUSANA, BOBAN N Ot V15.3 08/11/2014 SUSANA, BOBAN N Ot V58.69 08/11/2014 SUSANA, BOBAN N Ot V87.41 08/11/2014 JANESSA HULL, LEEANN M Ot V72.84 08/11/2014 JANESSA HULL, LEEANN M Ot 154.1 08/11/2014 JANESSA HULL, LEEANN M Ot V72.84 08/11/2014 JANESSA HULL, LEEANN M Ot V74.8 08/11/2014 BARBOZAMIRA S STATISTICAL METHODS TEACHER Ot 154.1 08/11/2014 BARBOZAMIRA S STATISTICAL METHODS TEACHER Ot 280.9 08/11/2014 BARBOZA, MIRA S STATISTICAL METHODS TEACHER Ot 401.9 08/11/2014 BARBOZAMIRA S STATISTICAL METHODS TEACHER Ot V15.3 08/11/2014 BARBOZA, MIRA S STATISTICAL METHODS TEACHER Ot V58.69 08/11/2014 BARBOZA, MIRA S STATISTICAL METHODS TEACHER Ot V87.41 08/11/2014 BARBOZAMIRA Khan S STATISTICAL METHODS TEACHER Ot 154.1 08/11/2014 BARBOZAMIRA Khan S STATISTICAL METHODS TEACHER Ot 401.9 08/11/2014 BARBOZAMIRA S STATISTICAL METHODS TEACHER Ot V15.3 08/11/2014 BARBOZAMIRA S STATISTICAL METHODS TEACHER Ot V58.69 08/11/2014 BARBOZAMIRA Khan S STATISTICAL METHODS TEACHER Ot V87.41 08/11/2014 JANESSA HULL, LEEANN M Ot V72.84 08/11/2014 SUSANA, BOBAN N Ot 154.1 08/11/2014 BARBOZAMIRA Khan S STATISTICAL METHODS TEACHER Ot 154.0 08/11/2014 SUSANA, BOBAN N Ot 154.1 08/11/2014 SUSANA, BOBAN N Ot 154.1 08/11/2014 SUSANA, BOBAN N Ot 401.9 08/11/2014 SUSANA, BOBAN N Ot V15.3 08/11/2014 SUSANA, BOBAN N Ot V58.69 08/11/2014 SUSANA, BOBAN N Ot V87.41 08/11/2014 MIRA BARBOZA S STATISTICAL METHODS TEACHER Ot 154.1 08/11/2014 BARBOZAMIRA Khan S STATISTICAL METHODS TEACHER Ot 401.9 08/11/2014 BARBOZAMIRA Khan S STATISTICAL METHODS TEACHER Ot V15.3 08/11/2014 BARBOZAMIRA S STATISTICAL METHODS TEACHER Ot V58.69 08/11/2014 BARBOZAMIRA S STATISTICAL METHODS TEACHER Ot V87.41 08/11/2014 BARBOZAMIRA S STATISTICAL METHODS TEACHER Ot 154.1 08/11/2014 BARBOZAMIRA S STATISTICAL METHODS TEACHER Ot 356.9 08/11/2014 BARBOZAMIRA S STATISTICAL METHODS TEACHER Ot V15.3 08/11/2014 BARBOZAMIRA S STATISTICAL METHODS TEACHER Ot V44.3 08/11/2014 BARBOZAMIRA S STATISTICAL METHODS TEACHER Ot V58.69 08/11/2014 BARBOZA, MIRA S STATISTICAL METHODS TEACHER Ot V87.41 08/11/2014 BARBOZAMIRA S STATISTICAL METHODS TEACHER Ot 154.1 08/11/2014 BARBOZAMIRA S STATISTICAL METHODS TEACHER Ot 338.18 08/11/2014 BARBOZA, MIRA S STATISTICAL METHODS TEACHER Ot 356.9 08/11/2014 BARBOZA, MIRA S STATISTICAL METHODS TEACHER Ot 795.81 08/11/2014 BARBOZAMIRA Khan S STATISTICAL METHODS TEACHER Ot V15.3 08/11/2014 BARBOZAMIRA S STATISTICAL METHODS TEACHER Ot V58.69 08/11/2014 BARBOZAMIRA S STATISTICAL METHODS TEACHER Ot V87.41 08/11/2014 BARBOZAMIRA S STATISTICAL METHODS TEACHER Ot 154.1 08/11/2014 BARBOZAMIRA S STATISTICAL METHODS TEACHER Ot 784.0 08/11/2014 BARBOZAMIRA S STATISTICAL METHODS TEACHER Ot 787.01 08/11/2014 JANESSA HULL, LEEANN M Ot 569.89 08/11/2014 BARBOZAMIRA S STATISTICAL METHODS TEACHER Ot 154.1 08/11/2014 BARBOZAMIRA S STATISTICAL METHODS TEACHER Ot 401.9 08/11/2014 BARBOZAMIRA S STATISTICAL METHODS TEACHER Ot V15.3 08/11/2014 BARBOZAMIRA S STATISTICAL METHODS TEACHER Ot V58.69 08/11/2014 SUSANA, BOBAN N Ot 154.1 08/11/2014 SUSANA, BOBAN N Ot 280.9 08/11/2014 SUSANA, BOBAN N Ot 401.9 08/11/2014 SUSANA, BOBAN N Ot V15.3 08/11/2014 SUSANA, BOBAN N Ot V58.69 08/11/2014 SUSANA, BOBAN N Ot V87.41 08/11/2014 JANESSA HULL, LEEANN M Ot V72.84 08/11/2014 JANESSA HULL, LEEANN M Ot 154.1 08/11/2014 JANESSA HULL, LEEANN M Ot V72.84 08/11/2014 JANESSA HULL, LEEANN M Ot V74.8 08/11/2014 BARBOZAMIRA Khan S STATISTICAL METHODS TEACHER Ot 154.1 08/11/2014 BARBOZAMIRA S STATISTICAL METHODS TEACHER Ot 280.9 08/11/2014 BARBOZAMIRA S STATISTICAL METHODS TEACHER Ot 401.9 08/11/2014 BARBOZAMIRA S STATISTICAL METHODS TEACHER Ot V15.3 08/11/2014 BARBOZAMIRA S STATISTICAL METHODS TEACHER Ot V58.69 08/11/2014 BARBOZAMIRA S STATISTICAL METHODS TEACHER Ot V87.41 08/11/2014 BARBOZA, MIRA S STATISTICAL METHODS TEACHER Ot 154.1 08/11/2014 BARBOZA, MIRA S STATISTICAL METHODS TEACHER Ot 401.9 08/11/2014 BARBOZAMIRA S STATISTICAL METHODS TEACHER Ot V15.3 08/11/2014 BARBOZAMIRA S STATISTICAL METHODS TEACHER Ot V58.69 08/11/2014 BARBOZAMIRA S STATISTICAL METHODS TEACHER Ot V87.41 08/11/2014 JANESSA HULL, LEEANN M Ot V72.84 08/11/2014 SUSANAJAKE DE SOUZA N Ot 154.1 08/11/2014 BARBOZAMIRA Khan S STATISTICAL METHODS TEACHER Ot 154.0 08/11/2014 SUSANA, BOBAN N Ot 154.1 08/11/2014 SUSANA, BOBAN N Ot 154.1 08/11/2014 SUSANA, BOBAN N Ot 401.9 08/11/2014 SUSANA, BOBAN N Ot V15.3 08/11/2014 SUSANA, BOBAN N Ot V58.69 08/11/2014 SUSANA, JAKE N Ot V87.41 08/11/2014 MIRA BARBOZA S STATISTICAL METHODS TEACHER Ot 154.1 08/11/2014 BARBOZAMIRA S STATISTICAL METHODS TEACHER Ot 401.9 08/11/2014 BARBOZAMIRA S STATISTICAL METHODS TEACHER Ot V15.3 08/11/2014 BARBOZAMIRA Khan S STATISTICAL METHODS TEACHER Ot V58.69 08/11/2014 BARBOZAMIRA Khan S STATISTICAL METHODS TEACHER Ot V87.41 08/11/2014 BARBOZAMIRA Khan S STATISTICAL METHODS TEACHER Ot 154.1 08/11/2014 BARBOZAMIRA Khan S STATISTICAL METHODS TEACHER Ot 356.9 08/11/2014 BARBOZAMIRA S STATISTICAL METHODS TEACHER Ot V15.3 08/11/2014 BARBOZAMIRA S STATISTICAL METHODS TEACHER Ot V44.3 08/11/2014 BARBOZAMIRA S STATISTICAL METHODS TEACHER Ot V58.69 08/11/2014 BARBOZAMIRA S STATISTICAL METHODS TEACHER Ot V87.41 08/11/2014 BARBOZAMIRA S STATISTICAL METHODS TEACHER Ot 154.1 08/11/2014 BARBOZAMIRA S STATISTICAL METHODS TEACHER Ot 338.18 08/11/2014 BARBOZAMIRA S STATISTICAL METHODS TEACHER Ot 356.9 08/11/2014 BARBOZAMIRA S STATISTICAL METHODS TEACHER Ot 795.81 08/11/2014 BARBOZA, MIRA S STATISTICAL METHODS TEACHER Ot V15.3 08/11/2014 BARBOZA MIRA S STATISTICAL METHODS TEACHER Ot V58.69 08/11/2014 BARBOZA MIRA S STATISTICAL METHODS TEACHER Ot V87.41 08/11/2014 MIRA BARBOZA STATISTICAL METHODS TEACHER Ot 154.1 08/11/2014 MIRA BARBOZA S STATISTICAL METHODS TEACHER Ot 784.0 08/11/2014 MIRA BARBOZA S STATISTICAL METHODS TEACHER Ot 787.01 08/11/2014 MIRA BARBOZA S STATISTICAL METHODS TEACHER Ot 154.1 08/11/2014 MIRA BARBOZA S STATISTICAL METHODS TEACHER Ot 338.18 08/11/2014 MIRA BARBOZA S STATISTICAL METHODS TEACHER Ot 356.9 08/11/2014 MIRA BARBOZA S STATISTICAL METHODS TEACHER Ot 795.81 08/11/2014 MIRA BARBOZA S STATISTICAL METHODS TEACHER Ot V15.3 08/11/2014 MIRA BARBOZA S STATISTICAL METHODS TEACHER Ot V58.69 08/11/2014 MIRA BARBOZA S STATISTICAL METHODS TEACHER Ot V87.41 08/11/2014 MIRA BARBOZA S STATISTICAL METHODS TEACHER Ot 154.1 08/11/2014 MIRA BARBOZA S STATISTICAL METHODS TEACHER Ot 338.18 08/11/2014 MIRA BARBOZA S STATISTICAL METHODS TEACHER Ot 356.9 08/11/2014 MIRA BARBOZA S STATISTICAL METHODS TEACHER Ot 795.81 08/11/2014 MIRA BARBOZA S STATISTICAL METHODS TEACHER Ot V15.3 08/11/2014 MIRA BARBOZA S STATISTICAL METHODS TEACHER Ot V58.69 08/11/2014 BARBOZAMIRA Khan S STATISTICAL METHODS TEACHER Ot V87.41 08/11/2014 MIRA BARBOZA S STATISTICAL METHODS TEACHER Ot 154.1 08/11/2014 BARBOZAMIRA Khan S STATISTICAL METHODS TEACHER Ot 401.9 08/11/2014 BARBOZAMIRA Khan S STATISTICAL METHODS TEACHER Ot V15.3 08/11/2014 BARBOZAMIRA Khan S STATISTICAL METHODS TEACHER Ot V58.69 08/11/2014 BARBOZAMIRA Khan S STATISTICAL METHODS TEACHER Ot V87.41 08/11/2014 SUSANA, BOBAN N Ot 154.1 08/11/2014 SUSANA, BOBAN N Ot 401.9 08/11/2014 SUSANA, BOBAN N Ot V15.3 08/11/2014 SUSANA, BOBAN N Ot V58.69 08/11/2014 SUSANA, BOBAN N Ot V87.41 08/14/2014 SUSANA, BOBAN N Ot 154.1 08/14/2014 SUSANA, BOBAN N Ot 401.9 08/14/2014 SUSANA, BOBAN N Ot V15.3 08/14/2014 JAKE JOSEPH N Ot V58.69 08/14/2014 JAKE JOSEPH N Ot V87.41 08/17/2014 BARBOZAMIRA Khan S STATISTICAL METHODS TEACHER Ot 154.1 08/17/2014 BARBOZAMIRA Khan S STATISTICAL METHODS TEACHER Ot 338.18 08/17/2014 BARBOZAMIRA Khan S STATISTICAL METHODS TEACHER Ot 356.9 08/17/2014 BARBOZAMIRA Khan S STATISTICAL METHODS TEACHER Ot 795.81 08/17/2014 BARBOZAMIRA S STATISTICAL METHODS TEACHER Ot V15.3 08/17/2014 BARBOZAMIRA Khan S STATISTICAL METHODS TEACHER Ot V58.69 08/17/2014 BARBOZAMIRA S STATISTICAL METHODS TEACHER Ot V87.41 08/21/2014 JANESSA HULL, LEEANN Germain Ot 569.89 08/21/2014 BARBOZAMIRA S STATISTICAL METHODS TEACHER Ot 154.1 08/21/2014 BARBOZAMIRA S STATISTICAL METHODS TEACHER Ot 401.9 08/21/2014 BARBOZAMIRA Khan S STATISTICAL METHODS TEACHER Ot V15.3 08/21/2014 BARBOZAMIRA Khan S STATISTICAL METHODS TEACHER Ot V58.69 08/21/2014 BARBOZAMIRA Khan S STATISTICAL METHODS TEACHER Ot 154.1 08/21/2014 BARBOZAMIRA Khan S STATISTICAL METHODS TEACHER Ot 280.9 08/21/2014 BARBOZAMIRA Khan S STATISTICAL METHODS TEACHER Ot 401.9 08/21/2014 BARBOZAMIRA Khan S STATISTICAL METHODS TEACHER Ot V15.3 08/21/2014 BARBOZAMIRA Khan S STATISTICAL METHODS TEACHER Ot V58.69 08/21/2014 BARBOZAMIRA Khan S STATISTICAL METHODS TEACHER Ot V87.41 08/21/2014 JAKE JOSEPH N Ot 154.1 08/21/2014 BARBOZAMIRA Khan S STATISTICAL METHODS TEACHER Ot 154.0 08/21/2014 JANESSA HULL, LEEANN M Ot 154.1 08/21/2014 JANESSA HULL, LEEANN M Ot V72.63 08/21/2014 JANESSA HULL, LEEANN M Ot V74.8 08/21/2014 JABARIMIRA S STATISTICAL METHODS TEACHER Ot 154.1 08/21/2014 BARBOZA, MIRA S STATISTICAL METHODS TEACHER Ot 401.9 08/21/2014 JABARI MIRA S STATISTICAL METHODS TEACHER Ot V15.3 08/21/2014 MIRA BARBOZA STATISTICAL METHODS TEACHER Ot V58.69 08/21/2014 MIRA BARBOZA STATISTICAL METHODS TEACHER Ot V87.41 08/24/2014 MIRA BARBOZA STATISTICAL METHODS TEACHER Ot 154.1 08/24/2014 MIRA BARBOZA STATISTICAL METHODS TEACHER Ot 356.9 08/24/2014 MIRA BARBOZA STATISTICAL METHODS TEACHER Ot V15.3 08/24/2014 MIRA BARBOZA STATISTICAL METHODS TEACHER Ot V44.3 08/24/2014 MIRA BARBOZA STATISTICAL METHODS TEACHER Ot V58.69 08/24/2014 MIRA BARBOZA STATISTICAL METHODS TEACHER Ot V87.41 08/24/2014 MIRA BARBOZA STATISTICAL METHODS TEACHER Ot 154.1 08/24/2014 MIRA BARBOZA STATISTICAL METHODS TEACHER Ot 784.0 08/24/2014 MIRA BARBOZA STATISTICAL METHODS TEACHER Ot 787.01 08/25/2014 SUSANA BOBAN N Ot 154.1 08/28/2014 SUSANA BOBAN N Ot 154.1 08/28/2014 SUSANA BOBAN N Ot 401.9 08/28/2014 SUSANA BOBAN N Ot V15.3 08/28/2014 SUSANA BOBAN N Ot V58.69 08/28/2014 SUSANA BOBAN N Ot V87.41 08/28/2014 SUSANA, BOBAN N Ot 154.1 08/28/2014 SUSANA, BOBAN N Ot 401.9 08/28/2014 SUSANA, BOBAN N Ot V15.3 08/28/2014 SUSANA, BOBAN N Ot V58.69 08/28/2014 SUSANA, BOBAN N Ot V87.41 08/29/2014 SUSANA, BOBAN N Ot 154.1 MALIGNANT NEOPL RECTUM 08/29/2014 SUSANA BOBAN N Ot 401.9 HYPERTENSION NOS 08/29/2014 SUSANA BOBAN N Ot 791.9 ABN URINE FINDINGS NEC 08/29/2014 SUSANA BOBAN N Ot V15.3 HX OF IRRADIATION 08/29/2014 SUSANA BOBAN N Ot V58.11 ENCOUNTER FOR ANTINEOPLASTIC CHEMOTHERAP 08/29/2014 KAT JOSEPHAN N Ot V58.69 OTH MED,LT,CURRENT USE 08/29/2014 SUSANA, BOBAN N Ot V87.41 PERSONAL HISTORY OF ANTINEOPLASTIC CHEMO 08/30/2014 SUSANA, BOBAN N Ot 154.1 08/30/2014 SUSANA, BOBAN N Ot 401.9 08/30/2014 SUSANA, BOBAN N Ot V15.3 08/30/2014 SUSANA, BOBAN N Ot V58.69 08/30/2014 SUSANA, BOBAN N Ot V87.41 08/30/2014 SUSANA, BOBAN N Ot 154.1 08/30/2014 SUSANA, BOBAN N Ot 401.9 08/30/2014 SUSANA, BOBAN N Ot V15.3 08/30/2014 SUSANA, BOBAN N Ot V58.69 08/30/2014 SUSANA, BOBAN N Ot V87.41 08/30/2014 SUSANA, BOBAN N Ot 154.1 08/30/2014 SUSANA, BOBAN N Ot 401.9 08/30/2014 SUSANA, BOBAN N Ot V15.3 08/30/2014 SUSANA, BOBAN N Ot V58.69 08/30/2014 SUSANA, BOBAN N Ot V87.41 08/31/2014 SUSANA, BOBAN N Ot 154.1 08/31/2014 SUSANA, BOBAN N Ot 401.9 08/31/2014 SUSANA, BOBAN N Ot V15.3 08/31/2014 SUSANA, BOBAN N Ot V58.69 08/31/2014 SUSANA, BOBAN N Ot V87.41 09/04/2014 SUSANA, BOBAN N Ot 154.1 09/04/2014 SUSANA, BOBAN N Ot 401.9 09/04/2014 SUSANA, BOBAN N Ot V15.3 09/04/2014 SUSANA, BOBAN N Ot V58.69 09/04/2014 SUSANA, BOBAN N Ot V87.41 09/06/2014 MIRA BARBOZA STATISTICAL METHODS TEACHER Ot 154.1 09/06/2014 MIRA BARBOZA STATISTICAL METHODS TEACHER Ot 401.9 09/06/2014 MIRA BARBOZA STATISTICAL METHODS TEACHER Ot V15.3 09/06/2014 MIRA BARBOZA STATISTICAL METHODS TEACHER Ot V58.69 09/06/2014 MIRA BARBOZA STATISTICAL METHODS TEACHER Ot V87.41 09/06/2014 MIRA BARBOZA STATISTICAL METHODS TEACHER Ot 154.1 09/06/2014 MIRA BARBOZA STATISTICAL METHODS TEACHER Ot 356.9 09/06/2014 BARBOZAMIRA Khan S STATISTICAL METHODS TEACHER Ot V15.3 09/06/2014 BARBOZAMIRA Khan S STATISTICAL METHODS TEACHER Ot V44.3 09/06/2014 BARBOZAMIRA Khan S STATISTICAL METHODS TEACHER Ot V58.69 09/06/2014 BARBOZAMIRA Khan S STATISTICAL METHODS TEACHER Ot V87.41 09/06/2014 BARBOZAMIRA Khan S STATISTICAL METHODS TEACHER Ot 154.1 09/06/2014 MIRA BARBOZA S STATISTICAL METHODS TEACHER Ot 784.0 09/06/2014 BARBOZAMIRA S STATISTICAL METHODS TEACHER Ot 787.01 09/11/2014 SUSANAJAKE DE SOUZA N Ot 154.1 09/11/2014 BARBOZAMIRA S STATISTICAL METHODS TEACHER Ot 154.1 09/11/2014 BARBOZAMIRA Khan S STATISTICAL METHODS TEACHER Ot 356.9 09/11/2014 BARBOZAMIRA Khan S STATISTICAL METHODS TEACHER Ot V15.3 09/11/2014 BARBOZAMIRA S STATISTICAL METHODS TEACHER Ot V44.3 09/11/2014 BARBOZAMIRA Khan S STATISTICAL METHODS TEACHER Ot V58.69 09/11/2014 BARBOZAMIRA Khan S STATISTICAL METHODS TEACHER Ot V87.41 09/11/2014 JAKE JOSEPH N Ot 724.5 09/11/2014 BARBOZAMIRA Khan S STATISTICAL METHODS TEACHER Ot 154.1 09/11/2014 BARBOZAMIRA Khan S STATISTICAL METHODS TEACHER Ot 356.9 09/11/2014 BARBOZAMIRA Khan S STATISTICAL METHODS TEACHER Ot V15.3 09/11/2014 BARBOZAMIRA Khan S STATISTICAL METHODS TEACHER Ot V44.3 09/11/2014 BARBOZAMIRA Khan S STATISTICAL METHODS TEACHER Ot V58.69 09/11/2014 BARBOZAMIRA Khan S STATISTICAL METHODS TEACHER Ot V87.41 09/11/2014 BARBOZAMIRA Khan S STATISTICAL METHODS TEACHER Ot 154.1 09/11/2014 BARBOZAMIRA Khan S STATISTICAL METHODS TEACHER Ot 784.0 09/11/2014 BARBOZAMIRA S STATISTICAL METHODS TEACHER Ot 787.01 09/14/2014 BARBOZAMIRA S STATISTICAL METHODS TEACHER Ot 154.1 09/14/2014 BARBOZAMIRA S STATISTICAL METHODS TEACHER Ot 356.9 09/14/2014 BARBOZAMIRA S STATISTICAL METHODS TEACHER Ot V15.3 09/14/2014 BARBOZAMIRA S STATISTICAL METHODS TEACHER Ot V44.3 09/14/2014 BARBOZAMIRA Khan S STATISTICAL METHODS TEACHER Ot V58.69 09/14/2014 BARBOZAMIRA Khan S STATISTICAL METHODS TEACHER Ot V87.41 09/19/2014 SUSANA, JAKE N Ot 154.1 09/19/2014 SUSANA, BOBAN N Ot 401.9 09/19/2014 SUSANA, JAKE N Ot V15.3 09/19/2014 SUSANA, JAKE N Ot V58.69 09/19/2014 SUSANA, JAKE N Ot V87.41 09/25/2014 RUBA HULL, VIANEY Ot 154.1 09/25/2014 RUBA HULL, VIANEY Ot 401.9 09/25/2014 RUBA HULL, SHIRLEYDUNCAN Ot V15.3 09/25/2014 RUBA HULL, VIANEY Ot V58.69 09/25/2014 RUBA HULL, SHIRLEYDUNCAN Ot V87.41 10/04/2014 JABARI MIRA S STATISTICAL METHODS TEACHER Ot 154.1 10/04/2014 JABARI MIRA S STATISTICAL METHODS TEACHER Ot 401.9 10/04/2014 JABARI MIRA S STATISTICAL METHODS TEACHER Ot 791.9 10/04/2014 JABARI MIRA S STATISTICAL METHODS TEACHER Ot V13.02 10/04/2014 JABARI MIRA S STATISTICAL METHODS TEACHER Ot V15.3 10/04/2014 JABARI MIRA S STATISTICAL METHODS TEACHER Ot V58.69 10/04/2014 JABARI MIRA S STATISTICAL METHODS TEACHER Ot V87.41 10/13/2014 SUSANA, JAKE N Ot 154.1 10/13/2014 SUSANAKAT DE SOUZAAN N Ot 401.9 10/13/2014 SUSANAJAKE DE SOUZA N Ot V15.3 10/13/2014 SUSANAKAT DE SOUZAAN N Ot V58.69 10/13/2014 SUSANA, BOBAN N Ot V87.41 10/27/2014 BARBOZA, MIRA S STATISTICAL METHODS TEACHER Ot 154.1 10/27/2014 BARBOZA, MIRA S STATISTICAL METHODS TEACHER Ot 401.9 10/27/2014 BARBOZA MIRA S STATISTICAL METHODS TEACHER Ot 791.9 10/27/2014 JABARI MIRA S STATISTICAL METHODS TEACHER Ot V13.02 10/27/2014 BARBOZA, MIRA S STATISTICAL METHODS TEACHER Ot V15.3 10/27/2014 BARBOZAMIRA Khan S STATISTICAL METHODS TEACHER Ot V58.69 10/27/2014 BARBOZAMIRA Khan S STATISTICAL METHODS TEACHER Ot V87.41 11/03/2014 BARBOZAMIRA Khan S STATISTICAL METHODS TEACHER Ot 154.1 11/13/2014 JANESSA HULL, LEEANN M Ot 569.89 11/13/2014 BARBOZAMIRA Khan S STATISTICAL METHODS TEACHER Ot 154.1 11/13/2014 BARBOZAMIRA S STATISTICAL METHODS TEACHER Ot 401.9 11/13/2014 BARBOZAMIRA S STATISTICAL METHODS TEACHER Ot V15.3 11/13/2014 BARBOZAMIRA Khan S STATISTICAL METHODS TEACHER Ot V58.69 11/13/2014 SUSANA, BOBAN N Ot 154.1 11/13/2014 SUSANA, BOBAN N Ot 280.9 11/13/2014 SUSANA, BOBAN N Ot 401.9 11/13/2014 SUSANA, BOBAN N Ot V15.3 11/13/2014 SUSANA, BOBAN N Ot V58.69 11/13/2014 SUSANA, BOBAN N Ot V87.41 11/13/2014 JANESSA HULL, LEEANN M Ot V72.84 11/13/2014 JANESSA HULL, LEEANN M Ot 154.1 11/13/2014 JANESSA HULL, LEEANN M Ot V72.84 11/13/2014 JANESSA HULL, LEEANN M Ot V74.8 11/13/2014 BARBOZAMIRA Khan S STATISTICAL METHODS TEACHER Ot 154.1 11/13/2014 BARBOZAMIRA Khan S STATISTICAL METHODS TEACHER Ot 280.9 11/13/2014 BARBOZAMIRA Khan S STATISTICAL METHODS TEACHER Ot 401.9 11/13/2014 BARBOZAMIRA S STATISTICAL METHODS TEACHER Ot V15.3 11/13/2014 BARBOZAMIRA S STATISTICAL METHODS TEACHER Ot V58.69 11/13/2014 BARBOZAMIRA S STATISTICAL METHODS TEACHER Ot V87.41 11/13/2014 BARBOZAMIRA S STATISTICAL METHODS TEACHER Ot 154.1 11/13/2014 BARBOZAMIRA S STATISTICAL METHODS TEACHER Ot 401.9 11/13/2014 BARBOZAMIRA S STATISTICAL METHODS TEACHER Ot V15.3 11/13/2014 BARBOZA MIRA S STATISTICAL METHODS TEACHER Ot V58.69 11/13/2014 JABARI MIRA S STATISTICAL METHODS TEACHER Ot V87.41 11/13/2014 JANESSA HULL, LEEANN M Ot V72.84 11/13/2014 JAKE JOSEPH N Ot 154.1 11/13/2014 MIRA BARBOZA STATISTICAL METHODS TEACHER Ot 154.0 11/13/2014 JAKE JOSEPH N Ot 154.1 11/13/2014 BARBOZAMIRA Khan S STATISTICAL METHODS TEACHER Ot 154.1 11/13/2014 BARBOZAMIRA Khan S STATISTICAL METHODS TEACHER Ot 401.9 11/13/2014 BARBOZAMIRA S STATISTICAL METHODS TEACHER Ot V15.3 11/13/2014 BARBOZAMIRA S STATISTICAL METHODS TEACHER Ot V58.69 11/13/2014 BARBOZAMIRA S STATISTICAL METHODS TEACHER Ot V87.41 11/13/2014 BARBOZAMIRA S STATISTICAL METHODS TEACHER Ot 154.1 11/13/2014 BARBOZAMIRA S STATISTICAL METHODS TEACHER Ot 356.9 11/13/2014 BARBOZAMIRA S STATISTICAL METHODS TEACHER Ot V15.3 11/13/2014 BARBOZAMIRA S STATISTICAL METHODS TEACHER Ot V44.3 11/13/2014 JABARI MIRA S STATISTICAL METHODS TEACHER Ot V58.69 11/13/2014 BARBOZAMIRA S STATISTICAL METHODS TEACHER Ot V87.41 11/13/2014 BARBOZAMIRA Khan S STATISTICAL METHODS TEACHER Ot 154.1 11/13/2014 BARBOZAMIRA Khan S STATISTICAL METHODS TEACHER Ot 338.18 11/13/2014 BARBOZAMIRA Khan S STATISTICAL METHODS TEACHER Ot 356.9 11/13/2014 BARBOZAMIRA Khan S STATISTICAL METHODS TEACHER Ot 795.81 11/13/2014 BARBOZAMIRA S STATISTICAL METHODS TEACHER Ot V15.3 11/13/2014 BARBOZAMIRA S STATISTICAL METHODS TEACHER Ot V58.69 11/13/2014 BARBOZAMIRA S STATISTICAL METHODS TEACHER Ot V87.41 11/13/2014 BARBOZAMIRA S STATISTICAL METHODS TEACHER Ot 154.1 11/13/2014 BARBOZAMIRA S STATISTICAL METHODS TEACHER Ot 356.9 11/13/2014 BARBOZAMIRA S STATISTICAL METHODS TEACHER Ot V15.3 11/13/2014 BARBOZAMIRA S STATISTICAL METHODS TEACHER Ot V44.3 11/13/2014 BARBOZAMIRA S STATISTICAL METHODS TEACHER Ot V58.69 11/13/2014 BARBOZA, MIRA S STATISTICAL METHODS TEACHER Ot V87.41 11/13/2014 BARBOZA, MIRA S STATISTICAL METHODS TEACHER Ot 154.1 11/13/2014 BARBOZA, HILAH S STATISTICAL METHODS TEACHER Ot 784.0 11/13/2014 BARBOZAMIRA Khan S STATISTICAL METHODS TEACHER Ot 787.01 11/13/2014 SUSANA, BOBAN N Ot 154.1 11/13/2014 SUSANA, BOBAN N Ot 401.9 11/13/2014 SUSANA, BOBAN N Ot V15.3 11/13/2014 SUSANA, KATAN N Ot V58.69 11/13/2014 SUSANA, KATAN N Ot V87.41 11/13/2014 RUBA HULL, VIANEY Ot 154.1 11/13/2014 RUBA HULL, VIANEY Ot 401.9 11/13/2014 RUBA HULL, VIANEY Ot V15.3 11/13/2014 RUBA HULL, VIANEY Ot V58.69 11/13/2014 RUBA HULL, VIANEY Ot V87.41 11/13/2014 BARBOZAMIRA Khan STATISTICAL METHODS TEACHER Ot 154.1 11/13/2014 JABARI MIRA S STATISTICAL METHODS TEACHER Ot 401.9 11/13/2014 BARBOZAMIRA S STATISTICAL METHODS TEACHER Ot 791.9 11/13/2014 BARBOZAMIRA S STATISTICAL METHODS TEACHER Ot V13.02 11/13/2014 BARBOZAMIRA S STATISTICAL METHODS TEACHER Ot V15.3 11/13/2014 BARBOZAMIRA S STATISTICAL METHODS TEACHER Ot V58.69 11/13/2014 BARBOZAMIRA S STATISTICAL METHODS TEACHER Ot V87.41 11/13/2014 BARBOZAMIRA Khan S STATISTICAL METHODS TEACHER Ot 154.1 11/13/2014 BARBOZAMIRA S STATISTICAL METHODS TEACHER Ot 154.1 11/13/2014 BARBOZAMIRA S STATISTICAL METHODS TEACHER Ot 401.9 11/13/2014 BARBOZAMIRA S STATISTICAL METHODS TEACHER Ot 791.9 11/13/2014 BARBOZAMIRA S STATISTICAL METHODS TEACHER Ot V13.02 11/13/2014 BARBOZAMIRA S STATISTICAL METHODS TEACHER Ot V15.3 11/13/2014 BARBOZAMIRA S STATISTICAL METHODS TEACHER Ot V58.69 11/13/2014 BARBOZAMIRA S STATISTICAL METHODS TEACHER Ot V87.41 11/13/2014 SUSANAKAT DE SOUZAAN N Ot 154.1 11/13/2014 SUSANA, KATAN N Ot 401.9 11/13/2014 SUSANA, KATAN N Ot V15.3 11/13/2014 KAT JOSEPHAN N Ot V58.69 11/13/2014 SUSANAJAKE DE SOUZA N Ot V87.41 11/28/2014 SUSANAJAKE DE SOUZA N Ot 154.1 MALIGNANT NEOPL RECTUM 11/28/2014 SUSANA KATRANDALL N Ot 401.9 HYPERTENSION NOS 11/28/2014 SUSANA KATRANDALL N Ot C20 MALIGNANT NEOPLASM OF RECTUM 11/28/2014 SUSANA KATRANDALL N Ot I10 ESSENTIAL (PRIMARY) HYPERTENSION 11/28/2014 SUSANA KATRANDALL N Ot V15.3 HX OF IRRADIATION 11/28/2014 JAKE JOSEPH N Ot V58.11 ENCOUNTER FOR ANTINEOPLASTIC CHEMOTHERAP 11/28/2014 JAKE JOSEPH N Ot V58.69 OTH MED,LT,CURRENT USE 11/28/2014 JAKE JOSEPH N Ot V87.41 11/28/2014 JAKE JOSEPH N Ot Z92.21 PERSONAL HISTORY OF ANTINEOPLASTIC CHEMO 11/28/2014 JAKE JOSEPH N Ot Z92.3 PERSONAL HISTORY OF IRRADIATION 12/01/2014 SUSANA KATRANDALL N Ot 154.1 12/01/2014 SUSANA BOBRANDALL N Ot 401.9 12/01/2014 SUSANA, BOBRANDALL N Ot V15.3 12/01/2014 SUSANA, BOBRANDALL N Ot V58.69 12/01/2014 SUSANA BOBRANDALL N Ot V87.41 12/04/2014 SUSANA, BOBAN N Ot 154.1 12/04/2014 SUSANA, BOBAN N Ot 401.9 12/04/2014 SUSANA, BOBRANDALL N Ot V15.3 12/04/2014 SUSANA BOBRANDALL N Ot V58.69 12/04/2014 SUSANA, BOBAN N Ot V87.41 12/04/2014 SUSANA, BOBAN N Ot 154.1 12/04/2014 SUSANA, BOBAN N Ot 401.9 12/04/2014 SUSANA, BOBAN N Ot V15.3 12/04/2014 SUSANA, BOBAN N Ot V58.69 12/04/2014 SUSANA, BOBAN N Ot V87.41 12/18/2014 MIRA BARBOZA STATISTICAL METHODS TEACHER Ot C20 12/18/2014 MIRA BARBOZA STATISTICAL METHODS TEACHER Ot I10 12/18/2014 BARBOZA, HILAH S STATISTICAL METHODS TEACHER Ot Z79.899 12/18/2014 MIRA BARBOZA S STATISTICAL METHODS TEACHER Ot Z92.21 01/05/2015 MIRA BARBOZA S STATISTICAL METHODS TEACHER Ot 154.1 01/05/2015 MIRA BARBOZA S STATISTICAL METHODS TEACHER Ot 401.9 01/05/2015 MIRA BARBOZA S STATISTICAL METHODS TEACHER Ot 791.9 01/05/2015 MIRA BARBOZA S STATISTICAL METHODS TEACHER Ot V13.02 01/05/2015 MIRA BARBOZA S STATISTICAL METHODS TEACHER Ot V15.3 01/05/2015 MIRA BARBOZA S STATISTICAL METHODS TEACHER Ot V58.69 01/05/2015 MIRA BARBOZA S STATISTICAL METHODS TEACHER Ot V87.41 01/08/2015 SUSANA KATRANDALL N Ot 154.1 01/08/2015 SUSANAJAKE N Ot 401.9 01/08/2015 SUSANAJAKE N Ot V15.3 01/08/2015 SUSANAJAKE N Ot V58.69 01/08/2015 SUSANAJAKE Ot V87.41 01/12/2015 BARBOZAMIRA Khan S STATISTICAL METHODS TEACHER Ot C20 01/12/2015 BARBOZAMIRA Khan STATISTICAL METHODS TEACHER Ot I10 01/12/2015 BARBOZAMIRA Khan S STATISTICAL METHODS TEACHER Ot Z79.899 01/12/2015 BARBOZAMIRA Khan S STATISTICAL METHODS TEACHER Ot Z92.21 02/20/2015 MIRA BARBOZA S STATISTICAL METHODS TEACHER Ot C20 02/20/2015 BARBOZAMIRA Khan S STATISTICAL METHODS TEACHER Ot I10 02/20/2015 BARBOZAMIRA Khan S STATISTICAL METHODS TEACHER Ot Z79.899 02/20/2015 BARBOZAMIRA Khan S STATISTICAL METHODS TEACHER Ot Z92.21 02/20/2015 BARBOZAMIRA Khan S STATISTICAL METHODS TEACHER Ot C20 02/20/2015 BARBOZAMIRA Khan S STATISTICAL METHODS TEACHER Ot N13.30 02/20/2015 BARBOZAMIRA Khan S STATISTICAL METHODS TEACHER Ot N25.9 03/04/2015 JAKE JOSEPH Ot C20 MALIGNANT NEOPLASM OF RECTUM 03/04/2015 JAKE JOSEPH Ot I10 ESSENTIAL (PRIMARY) HYPERTENSION 03/04/2015 JAKE JOSEPH Ot Z79.899 OTHER GROUP HOME (CURRENT) DRUG THERAPY 03/04/2015 JAKE JOSEPH Ot Z92.21 PERSONAL HISTORY OF ANTINEOPLASTIC CHEMO 03/09/2015 JAKE JOSEPH N Ot C20 03/09/2015 JAKE JOSEPH N Ot I10 03/09/2015 JAKE JOSEPH N Ot Z79.899 03/09/2015 JAKE JOSEPH N Ot Z92.21 03/09/2015 MIRA BARBOZA STATISTICAL METHODS TEACHER Ot C20 03/09/2015 MIRA BARBOZA S STATISTICAL METHODS TEACHER Ot I10 03/09/2015 MIRA BARBOZA S STATISTICAL METHODS TEACHER Ot Z79.899 03/09/2015 MIRA BARBOZA S STATISTICAL METHODS TEACHER Ot Z92.21 03/19/2015 JAKE JOSEPH N Ot C20 03/19/2015 JAKE JOSEPH N Ot I10 03/19/2015 JAKE JOSEPH N Ot Z79.899 03/19/2015 JAKE JOSEPH N Ot Z92.21 04/19/2015 JAKE JOSEPH N Ot 154.1 04/19/2015 JABARI MIRA S STATISTICAL METHODS TEACHER Ot 154.1 04/19/2015 JABARI MIRA S STATISTICAL METHODS TEACHER Ot 356.9 04/19/2015 JABARI MIRA S STATISTICAL METHODS TEACHER Ot V15.3 04/19/2015 JABARI MIRA S STATISTICAL METHODS TEACHER Ot V44.3 04/19/2015 JABARI MIRA S STATISTICAL METHODS TEACHER Ot V58.69 04/19/2015 JABARI MIRA S STATISTICAL METHODS TEACHER Ot V87.41 04/19/2015 JAKE JOSEPH N Ot 724.5 04/19/2015 JABARI MIRA S STATISTICAL METHODS TEACHER Ot 154.1 04/19/2015 JABARI MIRA S STATISTICAL METHODS TEACHER Ot 356.9 04/19/2015 JABARI MIRA S STATISTICAL METHODS TEACHER Ot V15.3 04/19/2015 JABARI MIRA S STATISTICAL METHODS TEACHER Ot V44.3 04/19/2015 JABARI MIRA S STATISTICAL METHODS TEACHER Ot V58.69 04/19/2015 JABARI MIRA S STATISTICAL METHODS TEACHER Ot V87.41 04/19/2015 JABARI MIRA S STATISTICAL METHODS TEACHER Ot 154.1 04/19/2015 GINGER BARBOZAKUSUM S STATISTICAL METHODS TEACHER Ot 784.0 04/19/2015 MIRA BARBOZA S STATISTICAL METHODS TEACHER Ot 787.01 04/19/2015 JAKE JOSEPH N Ot C20 MALIGNANT NEOPLASM OF RECTUM 04/19/2015 JAKE JOSEPH N Ot I10 ESSENTIAL (PRIMARY) HYPERTENSION 04/19/2015 JAKE JOSEPH N Ot Z79.899 OTHER GROUP HOME (CURRENT) DRUG THERAPY 04/19/2015 JAKE JOSEPH N Ot Z92.21 PERSONAL HISTORY OF ANTINEOPLASTIC CHEMO 04/19/2015 JAKE JOSEPH N Ot Z92.3 PERSONAL HISTORY OF IRRADIATION 04/20/2015 JAKE JOSEPH N Ot C20 04/20/2015 JAKE JOSEPH N Ot I10 04/20/2015 JAKE JOSEPH N Ot Z79.899 04/20/2015 JAKE JOSEPH N Ot Z92.21 04/20/2015 JAKE JOSEPH N Ot Z92.3 05/07/2015 GINGER BARBOZAAH S STATISTICAL METHODS TEACHER Ot C20 05/07/2015 BARBOZAGINGERAH S STATISTICAL METHODS TEACHER Ot I10 05/07/2015 GINGER BARBOZAAH S STATISTICAL METHODS TEACHER Ot Z79.899 05/07/2015 JABARI HILAH S STATISTICAL METHODS TEACHER Ot Z92.21 05/07/2015 BARBOZA HILAH S STATISTICAL METHODS TEACHER Ot Z92.3 05/10/2015 BARBOZA HILAH S STATISTICAL METHODS TEACHER Ot C20 05/10/2015 BARBOZA HILAH S STATISTICAL METHODS TEACHER Ot I10 05/10/2015 BARBOZA HILAH S STATISTICAL METHODS TEACHER Ot Z79.899 05/10/2015 BARBOZA HILAH S STATISTICAL METHODS TEACHER Ot Z92.21 05/10/2015 BARBOZA HILAH S STATISTICAL METHODS TEACHER Ot Z92.3 05/23/2015 BARBOZA HILAH S STATISTICAL METHODS TEACHER Ot C20 05/23/2015 BARBOZA HILAH S STATISTICAL METHODS TEACHER Ot I10 05/23/2015 BARBOZA HILAH S STATISTICAL METHODS TEACHER Ot Z79.899 05/23/2015 BARBOZA HILAH S STATISTICAL METHODS TEACHER Ot Z92.21 05/23/2015 BARBOZA HILAH S STATISTICAL METHODS TEACHER Ot Z92.3 05/23/2015 JAKE JOSEPH N Ot C20 05/23/2015 SUSANAJAKE DE SOUZA N Ot I10 05/23/2015 JAKE JOSEPH N Ot Z79.899 05/23/2015 JAKE JOSEPH N Ot Z92.21 05/23/2015 JAKE JOSEPH N Ot Z92.3 05/29/2015 JAKE JOSEPH N Ot C20 05/29/2015 JAKE JOSEPH N Ot I10 05/29/2015 JAKE JOSEPH N Ot Z79.899 05/29/2015 JAKE JOSEPH N Ot Z92.21 05/29/2015 JAKE JOSEPH N Ot Z92.3 05/30/2015 BARBOZA MIRA S STATISTICAL METHODS TEACHER Ot C20 05/30/2015 BARBOZAGINGERKUSUM S STATISTICAL METHODS TEACHER Ot I10 05/30/2015 BARBOZA MIRA S STATISTICAL METHODS TEACHER Ot Z79.899 05/30/2015 BARBOZAMIRA S STATISTICAL METHODS TEACHER Ot Z92.21 05/30/2015 BARBOZAMIRA Khan S STATISTICAL METHODS TEACHER Ot Z92.3 07/11/2015 JAKE JOSEPH N Ot C20 MALIGNANT NEOPLASM OF RECTUM 07/11/2015 JAKE JOSEPH N Ot I10 ESSENTIAL (PRIMARY) HYPERTENSION 07/11/2015 JAKE JOSEPH N Ot Z45.2 ENCOUNTER FOR ADJUSTMENT AND MANAGEMENT 07/11/2015 JAKE JOSEPH N Ot Z79.899 OTHER GROUP HOME (CURRENT) DRUG THERAPY 07/11/2015 JAKE JOSEPH N Ot Z92.21 PERSONAL HISTORY OF ANTINEOPLASTIC CHEMO 07/11/2015 JAKE JOSEPH N Ot Z92.3 PERSONAL HISTORY OF IRRADIATION 07/12/2015 JANESSA HULL, LEEANN Germain Ot 569.89 INTESTINAL DISORDERS NEC 07/12/2015 BARBOZA MIRA S STATISTICAL METHODS TEACHER Ot 154.1 MALIGNANT NEOPL RECTUM 07/12/2015 BARBOZAGINGERKUSUM S STATISTICAL METHODS TEACHER Ot 401.9 HYPERTENSION NOS 07/12/2015 GINGER BARBOZAAH S STATISTICAL METHODS TEACHER Ot V15.3 HX OF IRRADIATION 07/12/2015 BARBOZA, MIRA S STATISTICAL METHODS TEACHER Ot V58.69 OTH MED,LT,CURRENT USE 07/12/2015 JAKE JOSEPH N Ot 154.1 MALIGNANT NEOPL RECTUM 07/12/2015 SUSANA JAKE N Ot 280.9 IRON DEFIC ANEMIA NOS 07/12/2015 JAKE JOSEPH N Ot 401.9 HYPERTENSION NOS 07/12/2015 JAKE JOSEPH N Ot V15.3 HX OF IRRADIATION 07/12/2015 JAKE JOSEPH N Ot V58.69 OTH MED,LT,CURRENT USE 07/12/2015 JAKE JOSEPH N Ot V87.41 PERSONAL HISTORY OF ANTINEOPLASTIC CHEMO 07/12/2015 JANESSA HULL, LEEANN Germain Ot V72.84 EXAM PRE-OPERATIVE NOS 07/12/2015 JANESSA HULL, LEEANN Germain Ot 154.1 MALIGNANT NEOPL RECTUM 07/12/2015 JANESSA HULL, LEEANN Germain Ot V72.84 EXAM PRE-OPERATIVE NOS 07/12/2015 JANESSA HULL, LEEANN Germain Ot V74.8 SCREEN-BACTERIAL DIS NEC 07/12/2015 BARBOZA HILAH S STATISTICAL METHODS TEACHER Ot 154.1 MALIGNANT NEOPL RECTUM 07/12/2015 BARBOZA HILAH S STATISTICAL METHODS TEACHER Ot 280.9 IRON DEFIC ANEMIA NOS 07/12/2015 BARBOZA, HILAH S STATISTICAL METHODS TEACHER Ot 401.9 HYPERTENSION NOS 07/12/2015 BARBOZA, HILAH S STATISTICAL METHODS TEACHER Ot V15.3 HX OF IRRADIATION 07/12/2015 BARBOZA HILAH S STATISTICAL METHODS TEACHER Ot V58.69 OTH MED,LT,CURRENT USE 07/12/2015 BARBOZA, HILAH S STATISTICAL METHODS TEACHER Ot V87.41 PERSONAL HISTORY OF ANTINEOPLASTIC CHEMO 07/12/2015 BARBOZA HILAH S STATISTICAL METHODS TEACHER Ot 154.1 MALIGNANT NEOPL RECTUM 07/12/2015 BARBOZA HILAH S STATISTICAL METHODS TEACHER Ot 401.9 HYPERTENSION NOS 07/12/2015 BARBOZA HILAH S STATISTICAL METHODS TEACHER Ot V15.3 HX OF IRRADIATION 07/12/2015 BARBOZA HILAH S STATISTICAL METHODS TEACHER Ot V58.69 OTH MED,LT,CURRENT USE 07/12/2015 BARBOZA HILAH S STATISTICAL METHODS TEACHER Ot V87.41 PERSONAL HISTORY OF ANTINEOPLASTIC CHEMO 07/12/2015 JANESSA HULL, LEEANN Germain Ot V72.84 EXAM PRE-OPERATIVE NOS 07/12/2015 JAKE JOSEPH Ot 154.1 MALIGNANT NEOPL RECTUM 07/12/2015 BARBOZA HILAH S STATISTICAL METHODS TEACHER Ot 154.0 MAL LAURA RECTOSIGMOID JCT 07/12/2015 JAKE JOSEPH Ot 154.1 MALIGNANT NEOPL RECTUM 07/12/2015 BARBOZA HILAH S STATISTICAL METHODS TEACHER Ot 154.1 MALIGNANT NEOPL RECTUM 07/12/2015 BARBOZA HILAH S STATISTICAL METHODS TEACHER Ot 401.9 HYPERTENSION NOS 07/12/2015 BARBOZA HILAH S STATISTICAL METHODS TEACHER Ot V15.3 HX OF IRRADIATION 07/12/2015 BARBOZA HILAH S STATISTICAL METHODS TEACHER Ot V58.69 OTH MED,LT,CURRENT USE 07/12/2015 MIRA BARBOZA STATISTICAL METHODS TEACHER Ot V87.41 PERSONAL HISTORY OF ANTINEOPLASTIC CHEMO 07/12/2015 MIRA BARBOZA STATISTICAL METHODS TEACHER Ot 154.1 MALIGNANT NEOPL RECTUM 07/12/2015 MIRA BARBOZA S STATISTICAL METHODS TEACHER Ot 356.9 IDIO PERIPH NEURPTHY NOS 07/12/2015 MIRA BARBOZA S STATISTICAL METHODS TEACHER Ot V15.3 HX OF IRRADIATION 07/12/2015 MIRA BARBOZA S STATISTICAL METHODS TEACHER Ot V44.3 COLOSTOMY STATUS 07/12/2015 GINGER BARBOZAKUSUM S STATISTICAL METHODS TEACHER Ot V58.69 OTH MED,LT,CURRENT USE 07/12/2015 MIRA BARBOZA STATISTICAL METHODS TEACHER Ot V87.41 PERSONAL HISTORY OF ANTINEOPLASTIC CHEMO 07/12/2015 JAKE JOSEPH N Ot 724.5 BACKACHE NOS 07/12/2015 MIRA BARBOZA STATISTICAL METHODS TEACHER Ot 154.1 MALIGNANT NEOPL RECTUM 07/12/2015 MIRA BARBOZA STATISTICAL METHODS TEACHER Ot 338.18 OTHER ACUTE POSTOPERATIVE PAIN 07/12/2015 MIRA BARBOZA S STATISTICAL METHODS TEACHER Ot 356.9 IDIO PERIPH NEURPTHY NOS 07/12/2015 MIRA BARBOZA S STATISTICAL METHODS TEACHER Ot 795.81 ELEVATED CARCINOEMBRYONIC ANTIGEN [CEA ] 07/12/2015 MIRA BARBOZA STATISTICAL METHODS TEACHER Ot V15.3 HX OF IRRADIATION 07/12/2015 MIRA BARBOZA STATISTICAL METHODS TEACHER Ot V58.69 OTH MED,LT,CURRENT USE 07/12/2015 MIRA BARBOZA STATISTICAL METHODS TEACHER Ot V87.41 PERSONAL HISTORY OF ANTINEOPLASTIC CHEMO 07/12/2015 MIRA BARBOZA STATISTICAL METHODS TEACHER Ot 154.1 MALIGNANT NEOPL RECTUM 07/12/2015 MIRA BARBOZA STATISTICAL METHODS TEACHER Ot 356.9 IDIO PERIPH NEURPTHY NOS 07/12/2015 MIRA BARBOZA STATISTICAL METHODS TEACHER Ot V15.3 HX OF IRRADIATION 07/12/2015 MIRA BARBOZA STATISTICAL METHODS TEACHER Ot V44.3 COLOSTOMY STATUS 07/12/2015 MIRA BARBOZA STATISTICAL METHODS TEACHER Ot V58.69 OTH MED,LT,CURRENT USE 07/12/2015 MIRA BARBOZA STATISTICAL METHODS TEACHER Ot V87.41 PERSONAL HISTORY OF ANTINEOPLASTIC CHEMO 07/12/2015 MIRA BARBOZA STATISTICAL METHODS TEACHER Ot 154.1 MALIGNANT NEOPL RECTUM 07/12/2015 JABARIMIRA STATISTICAL METHODS TEACHER Ot 784.0 HEADACHE 07/12/2015 JABARI MIRA Bill STATISTICAL METHODS TEACHER Ot 787.01 NAUSEA WITH VOMITING 07/12/2015 VIANEY YEH MD Ot 154.1 MALIGNANT NEOPL RECTUM 07/12/2015 VIANEY YEH MD Ot 401.9 HYPERTENSION NOS 07/12/2015 VIANEY YEH MD Ot V15.3 HX OF IRRADIATION 07/12/2015 VIANEY YEH MD Ot V58.69 OTH MED,LT,CURRENT USE 07/12/2015 VIANEY YEH MD Ot V87.41 PERSONAL HISTORY OF ANTINEOPLASTIC CHEMO 07/12/2015 MIRA BARBOZA STATISTICAL METHODS TEACHER Ot 154.1 MALIGNANT NEOPL RECTUM 07/12/2015 GINGER BARBOZAKUSUM Bill STATISTICAL METHODS TEACHER Ot 401.9 HYPERTENSION NOS 07/12/2015 JABARI MIRA S STATISTICAL METHODS TEACHER Ot 791.9 ABN URINE FINDINGS NEC 07/12/2015 JABARI MIRA S STATISTICAL METHODS TEACHER Ot V13.02 PERSONAL HISTORY, URINARY (TRACT) INFECT 07/12/2015 BARBOZAMIRA S STATISTICAL METHODS TEACHER Ot V15.3 HX OF IRRADIATION 07/12/2015 JABARI MIRA S STATISTICAL METHODS TEACHER Ot V58.69 OTH MED,LT,CURRENT USE 07/12/2015 BARBOZA, MIRA S STATISTICAL METHODS TEACHER Ot V87.41 PERSONAL HISTORY OF ANTINEOPLASTIC CHEMO 07/12/2015 JABARI MIRA S STATISTICAL METHODS TEACHER Ot 154.1 MALIGNANT NEOPL RECTUM 07/12/2015 BARBOZA MIRA S STATISTICAL METHODS TEACHER Ot 154.1 MALIGNANT NEOPL RECTUM 07/12/2015 BARBOZAMIRA Khan S STATISTICAL METHODS TEACHER Ot 401.9 HYPERTENSION NOS 07/12/2015 BARBOZAMIRA S STATISTICAL METHODS TEACHER Ot 791.9 ABN URINE FINDINGS NEC 07/12/2015 BARBOZAMIRA S STATISTICAL METHODS TEACHER Ot V13.02 PERSONAL HISTORY, URINARY (TRACT) INFECT 07/12/2015 BARBOZAMIRA S STATISTICAL METHODS TEACHER Ot V15.3 HX OF IRRADIATION 07/12/2015 JABARI MIRA S STATISTICAL METHODS TEACHER Ot V58.69 OTH MED,LT,CURRENT USE 07/12/2015 BARBOZA, GINGERKUSUM S STATISTICAL METHODS TEACHER Ot V87.41 PERSONAL HISTORY OF ANTINEOPLASTIC CHEMO 07/12/2015 BARBOZAMIRA STATISTICAL METHODS TEACHER Ot 154.1 MALIGNANT NEOPL RECTUM 07/12/2015 GINGER BARBOZAKUSUM Bill STATISTICAL METHODS TEACHER Ot 401.9 HYPERTENSION NOS 07/12/2015 BARBOZAMIRA Khan STATISTICAL METHODS TEACHER Ot 791.9 ABN URINE FINDINGS NEC 07/12/2015 BARBOZAMIRA STATISTICAL METHODS TEACHER Ot V13.02 PERSONAL HISTORY, URINARY (TRACT) INFECT 07/12/2015 MIRA BARBOZA STATISTICAL METHODS TEACHER Ot V15.3 HX OF IRRADIATION 07/12/2015 JABARI MIRA Khan STATISTICAL METHODS TEACHER Ot V58.69 OT MED,LT,CURRENT USE 07/12/2015 BARBOZAMIRA STATISTICAL METHODS TEACHER Ot V87.41 PERSONAL HISTORY OF ANTINEOPLASTIC CHEMO 07/12/2015 MIRA BARBOZA STATISTICAL METHODS TEACHER Ot C20 MALIGNANT NEOPLASM OF RECTUM 07/12/2015 GINGER BARBOZAKUSUM Khan STATISTICAL METHODS TEACHER Ot I10 ESSENTIAL (PRIMARY) HYPERTENSION 07/12/2015 MIRA BARBOZA STATISTICAL METHODS TEACHER Ot Z79.899 OTHER GROUP HOME (CURRENT) DRUG THERAPY 07/12/2015 GINGER BARBOZAKUSUM Bill STATISTICAL METHODS TEACHER Ot Z92.21 PERSONAL HISTORY OF ANTINEOPLASTIC CHEMO 07/12/2015 MIRA BARBOZA STATISTICAL METHODS TEACHER Ot C20 MALIGNANT NEOPLASM OF RECTUM 07/12/2015 MIRA BARBOZA STATISTICAL METHODS TEACHER Ot I10 ESSENTIAL (PRIMARY) HYPERTENSION 07/12/2015 GINGER BARBOZAKUSUM Bill STATISTICAL METHODS TEACHER Ot Z79.899 OTHER SUPERINTENDENT FISH HATCHERY (CURRENT) DRUG THERAPY 07/12/2015 JABARI MIRA Bill STATISTICAL METHODS TEACHER Ot Z92.21 PERSONAL HISTORY OF ANTINEOPLASTIC CHEMO 07/12/2015 MIRA BARBOZA STATISTICAL METHODS TEACHER Ot C20 MALIGNANT NEOPLASM OF RECTUM 07/12/2015 GINGER BARBOZAKUSUM Bill STATISTICAL METHODS TEACHER Ot I10 ESSENTIAL (PRIMARY) HYPERTENSION 07/12/2015 JABARI MIRA Bill STATISTICAL METHODS TEACHER Ot Z79.899 OTHER SUPERINTENDENT FISH HATCHERY (CURRENT) DRUG THERAPY 07/12/2015 MIRA BARBOZA STATISTICAL METHODS TEACHER Ot Z92.21 PERSONAL HISTORY OF ANTINEOPLASTIC CHEMO 07/12/2015 MIRA BARBOZA STATISTICAL METHODS TEACHER Ot C20 MALIGNANT NEOPLASM OF RECTUM 07/12/2015 MIRA BARBOZA STATISTICAL METHODS TEACHER Ot N13.30 UNSPECIFIED HYDRONEPHROSIS 07/12/2015 MIRA BARBOZA STATISTICAL METHODS TEACHER Ot 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 07/12/2015 MIRA BARBOZA STATISTICAL METHODS TEACHER Ot C20 MALIGNANT NEOPLASM OF RECTUM 07/12/2015 MIRA BARBOZA STATISTICAL METHODS TEACHER Ot I10 ESSENTIAL (PRIMARY) HYPERTENSION 07/12/2015 MIRA BARBOZA STATISTICAL METHODS TEACHER Ot Z79.899 OTHER SUPERINTENDENT FISH HATCHERY (CURRENT) DRUG THERAPY 07/12/2015 MIRA BARBOZA STATISTICAL METHODS TEACHER Ot Z92.21 PERSONAL HISTORY OF ANTINEOPLASTIC CHEMO 07/12/2015 BARBOZAMIRA Khan STATISTICAL METHODS TEACHER Ot C20 MALIGNANT NEOPLASM OF RECTUM 07/12/2015 MIRA BARBOZA STATISTICAL METHODS TEACHER Ot I10 ESSENTIAL (PRIMARY) HYPERTENSION 07/12/2015 BARBOZA MIRA Khan STATISTICAL METHODS TEACHER Ot Z79.899 OTHER SUPERINTENDENT FISH HATCHERY (CURRENT) DRUG THERAPY 07/12/2015 BARBOZA MIRA Khan STATISTICAL METHODS TEACHER Ot Z92.21 PERSONAL HISTORY OF ANTINEOPLASTIC CHEMO 07/12/2015 BARBOZAGINGERKUSUM Bill STATISTICAL METHODS TEACHER Ot Z92.3 PERSONAL HISTORY OF IRRADIATION 07/12/2015 JAKE JOSEPH N Ot C20 MALIGNANT NEOPLASM OF RECTUM 07/12/2015 JAKE JOSEPH N Ot I10 ESSENTIAL (PRIMARY) HYPERTENSION 07/12/2015 JAKE JOSEPH Ot Z79.899 OTHER GROUP HOME (CURRENT) DRUG THERAPY 07/12/2015 SUSANAJAKE DE SOUZA N Ot Z92.21 PERSONAL HISTORY OF ANTINEOPLASTIC CHEMO 07/12/2015 JAKE JOSEPH Ot Z92.3 PERSONAL HISTORY OF IRRADIATION 07/12/2015 MIRA BARBOZA STATISTICAL METHODS TEACHER Ot C20 MALIGNANT NEOPLASM OF RECTUM 07/12/2015 BARBOZAGINGERKUSUM Khan STATISTICAL METHODS TEACHER Ot I10 ESSENTIAL (PRIMARY) HYPERTENSION 07/12/2015 BARBOZAGINGERKUSUM Bill STATISTICAL METHODS TEACHER Ot Z79.899 OTHER SUPERINTENDENT FISH HATCHERY (CURRENT) DRUG THERAPY 07/12/2015 BARBOZAGINGERKUSUM Khan STATISTICAL METHODS TEACHER Ot Z92.21 PERSONAL HISTORY OF ANTINEOPLASTIC CHEMO 07/12/2015 BARBOZAGINGERKUSUM Bill STATISTICAL METHODS TEACHER Ot Z92.3 PERSONAL HISTORY OF IRRADIATION 07/12/2015 JAKE JOSEPH N Ot C20 MALIGNANT NEOPLASM OF RECTUM 07/12/2015 JAKE JOSEPH N Ot I10 ESSENTIAL (PRIMARY) HYPERTENSION 07/12/2015 JAKE JOSEPH Ot Z45.2 ENCOUNTER FOR ADJUSTMENT AND MANAGEMENT 07/12/2015 JAKE JOSEPH N Ot Z79.899 OTHER GROUP HOME (CURRENT) DRUG THERAPY 07/12/2015 JAKE JOSEPH N Ot Z92.21 PERSONAL HISTORY OF ANTINEOPLASTIC CHEMO 07/12/2015 JAKE JOSEPH N Ot Z92.3 PERSONAL HISTORY OF IRRADIATION 07/12/2015 MIRA BARBOZA S STATISTICAL METHODS TEACHER Ot C20 MALIGNANT NEOPLASM OF RECTUM 07/12/2015 BARBOZAMIRA Khan S STATISTICAL METHODS TEACHER Ot R79.89 OTHER SPECIFIED ABNORMAL FINDINGS OF BLO 07/12/2015 BARBOZAMIRA S STATISTICAL METHODS TEACHER Ot C20 MALIGNANT NEOPLASM OF RECTUM 07/12/2015 BARBOZAMIRA Khan S STATISTICAL METHODS TEACHER Ot R60.9 EDEMA, UNSPECIFIED 07/13/2015 BARBOZA HILAH S STATISTICAL METHODS TEACHER Ot C20 MALIGNANT NEOPLASM OF RECTUM 07/13/2015 BARBOZA HILAH S STATISTICAL METHODS TEACHER Ot R79.89 OTHER SPECIFIED ABNORMAL FINDINGS OF BLO 07/13/2015 BARBOZAMIRA S STATISTICAL METHODS TEACHER Ot C20 MALIGNANT NEOPLASM OF RECTUM 07/13/2015 BARBOZAMIRA S STATISTICAL METHODS TEACHER Ot R60.9 EDEMA, UNSPECIFIED 07/16/2015 BARBOZAGINGERAH S STATISTICAL METHODS TEACHER Ot C20 MALIGNANT NEOPLASM OF RECTUM 07/16/2015 BARBOZAMIRA S STATISTICAL METHODS TEACHER Ot R79.89 OTHER SPECIFIED ABNORMAL FINDINGS OF BLO 07/17/2015 JAKE JOSPEH N Ot C20 MALIGNANT NEOPLASM OF RECTUM 07/17/2015 JAKE JOSEPH N Ot C79.89 SECONDARY MALIGNANT NEOPLASM OF OTHER SP 07/17/2015 JAKE JOSEPH N Ot D64.9 ANEMIA, UNSPECIFIED 07/17/2015 JAKE JOSEPH N Ot E87.5 HYPERKALEMIA 07/17/2015 KAT JOSEPHRANDALL N Ot I10 ESSENTIAL (PRIMARY) HYPERTENSION 07/17/2015 SUSANAJAKE N Ot N13.1 HYDRONEPHROSIS W URETERAL STRICTURE, NEC 07/17/2015 SUSANAJAKE DE SOUZA N Ot N17.9 ACUTE KIDNEY FAILURE, UNSPECIFIED 07/17/2015 JAKE JOSEPH N Ot Z85.048 PRSNL HX OF MALIG NEOPLM OF RECTUM, RECT 07/18/2015 JAKE JOSEPH N Ot C20 MALIGNANT NEOPLASM OF RECTUM 07/18/2015 SUSANA, KATRANDALL N Ot I10 ESSENTIAL (PRIMARY) HYPERTENSION 07/18/2015 JAKE JOSEPH N Ot Z79.899 OTHER SUPERINTENDENT FISH HATCHERY (CURRENT) DRUG THERAPY 07/18/2015 JAKE JOSEPH Ot Z92.21 PERSONAL HISTORY OF ANTINEOPLASTIC CHEMO 07/18/2015 JAKE JOSEPH Ot Z92.3 PERSONAL HISTORY OF IRRADIATION 07/24/2015 MIRA BARBOZA S STATISTICAL METHODS TEACHER Ot C20 MALIGNANT NEOPLASM OF RECTUM 07/25/2015 JAKE JOSEPH N Ot C20 MALIGNANT NEOPLASM OF RECTUM 07/25/2015 JAKE JOSEPH Ot I10 ESSENTIAL (PRIMARY) HYPERTENSION 07/25/2015 JAKE JOSEPH Ot Z79.899 OTHER SUPERINTENDENT FISH HATCHERY (CURRENT) DRUG THERAPY 07/25/2015 JAKE JOSEPH Ot Z92.21 PERSONAL HISTORY OF ANTINEOPLASTIC CHEMO 07/25/2015 JAKE JOSEPH N Ot Z92.3 PERSONAL HISTORY OF IRRADIATION 07/26/2015 MIRA BARBOZA S STATISTICAL METHODS TEACHER Ot C20 MALIGNANT NEOPLASM OF RECTUM 07/31/2015 MIRA BARBOZA S STATISTICAL METHODS TEACHER Ot C20 MALIGNANT NEOPLASM OF RECTUM 07/31/2015 MIRA BARBOZA STATISTICAL METHODS TEACHER Ot R60.9 EDEMA, UNSPECIFIED 07/31/2015 MIRA BARBOZA S STATISTICAL METHODS TEACHER Ot C20 MALIGNANT NEOPLASM OF RECTUM 07/31/2015 MIRA BARBOZA S STATISTICAL METHODS TEACHER Ot R79.89 OTHER SPECIFIED ABNORMAL FINDINGS OF BLO 08/10/2015 MIRA BARBOZA S STATISTICAL METHODS TEACHER Ot C20 MALIGNANT NEOPLASM OF RECTUM 08/15/2015 JAKE JOSEPH Farooq Ot C20 MALIGNANT NEOPLASM OF RECTUM 08/15/2015 JAKE JOSEPH Farooq Ot I10 ESSENTIAL (PRIMARY) HYPERTENSION 08/15/2015 JAKE JOSEPH Ot Z79.899 OTHER GROUP HOME (CURRENT) DRUG THERAPY 08/15/2015 JAKE JOSEPH Ot Z92.21 PERSONAL HISTORY OF ANTINEOPLASTIC CHEMO 08/15/2015 JAKE JOSEPH N Ot Z92.3 PERSONAL HISTORY OF IRRADIATION 08/16/2015 MIRA BARBOZA S STATISTICAL METHODS TEACHER Ot C20 MALIGNANT NEOPLASM OF RECTUM 08/16/2015 MIRA BARBOZA S STATISTICAL METHODS TEACHER Ot I10 ESSENTIAL (PRIMARY) HYPERTENSION 08/16/2015 MIRA BARBOZA S STATISTICAL METHODS TEACHER Ot Z79.899 OTHER GROUP HOME (CURRENT) DRUG THERAPY 08/16/2015 MIRA BARBOZA S STATISTICAL METHODS TEACHER Ot Z92.21 PERSONAL HISTORY OF ANTINEOPLASTIC CHEMO 08/16/2015 MIRA BARBOZA S STATISTICAL METHODS TEACHER Ot Z92.3 PERSONAL HISTORY OF IRRADIATION 08/17/2015 JAKE JOSEPH N Ot N13.30 UNSPECIFIED HYDRONEPHROSIS 08/23/2015 JAKE JOSEPH N Ot C20 MALIGNANT NEOPLASM OF RECTUM 08/23/2015 JAKE JOSEPH N Ot I10 ESSENTIAL (PRIMARY) HYPERTENSION 08/23/2015 JAKE JOSEPH N Ot Z79.899 OTHER SUPERINTENDENT FISH HATCHERY (CURRENT) DRUG THERAPY 08/23/2015 JAKE JOSEPH N Ot Z92.21 PERSONAL HISTORY OF ANTINEOPLASTIC CHEMO 08/23/2015 SUSANA, KATRANDALL N Ot Z92.3 PERSONAL HISTORY OF IRRADIATION 08/23/2015 LIMA HULL, GIANCARLO Z Ot N36.8 OTHER SPECIFIED DISORDERS OF URETHRA 08/24/2015 LIMA HULL, GIANCARLO Z Ot N36.8 OTHER SPECIFIED DISORDERS OF URETHRA 09/06/2015 LIMA HULL, GIANCARLO Z Ot N36.8 OTHER SPECIFIED DISORDERS OF URETHRA 09/06/2015 JAKE JOSEPH Farooq Ot N13.30 UNSPECIFIED HYDRONEPHROSIS 09/06/2015 MIRA BARBOZA STATISTICAL METHODS TEACHER Ot C20 MALIGNANT NEOPLASM OF RECTUM 09/06/2015 MIRA BARBOZA STATISTICAL METHODS TEACHER Ot I10 ESSENTIAL (PRIMARY) HYPERTENSION 09/06/2015 MIRA BARBOZA STATISTICAL METHODS TEACHER Ot Z79.899 OTHER GROUP HOME (CURRENT) DRUG THERAPY 09/06/2015 MIRA BARBOZA STATISTICAL METHODS TEACHER Ot Z92.21 PERSONAL HISTORY OF ANTINEOPLASTIC CHEMO 09/06/2015 MIRA BARBOZA STATISTICAL METHODS TEACHER Ot Z92.3 PERSONAL HISTORY OF IRRADIATION 09/12/2015 SUSANA KATRANDALL N Ot C20 MALIGNANT NEOPLASM OF RECTUM 09/12/2015 JAKE JOSEPH Farooq Ot I10 ESSENTIAL (PRIMARY) HYPERTENSION 09/12/2015 JAKE JOSEPH N Ot Z45.2 ENCOUNTER FOR ADJUSTMENT AND MANAGEMENT 09/12/2015 JAKE JOSEPH N Ot Z79.899 OTHER SUPERINTENDENT FISH HATCHERY (CURRENT) DRUG THERAPY 09/12/2015 JAKE JOSEPH N Ot Z92.21 PERSONAL HISTORY OF ANTINEOPLASTIC CHEMO 09/12/2015 SUSANAJAKE DE SOUZA N Ot Z92.3 PERSONAL HISTORY OF IRRADIATION 09/26/2015 SUSANA JAKE N Ot 154.1 MALIGNANT NEOPL RECTUM 09/26/2015 MIRA BARBOZA STATISTICAL METHODS TEACHER Ot 154.1 MALIGNANT NEOPL RECTUM 09/26/2015 MIRA BARBOZA STATISTICAL METHODS TEACHER Ot 356.9 IDIO PERIPH NEURPTHY NOS 09/26/2015 MIRA BARBOZA STATISTICAL METHODS TEACHER Ot V15.3 HX OF IRRADIATION 09/26/2015 MIRA BARBOZA STATISTICAL METHODS TEACHER Ot V44.3 COLOSTOMY STATUS 09/26/2015 MIRA BARBOZA STATISTICAL METHODS TEACHER Ot V58.69 OTH MED,LT,CURRENT USE 09/26/2015 MIRA BARBOZA STATISTICAL METHODS TEACHER Ot V87.41 PERSONAL HISTORY OF ANTINEOPLASTIC CHEMO 09/26/2015 JAKE JOSEPH N Ot 724.5 BACKACHE NOS 09/26/2015 MIRA BARBOZA STATISTICAL METHODS TEACHER Ot 154.1 MALIGNANT NEOPL RECTUM 09/26/2015 MIRA BARBOZA STATISTICAL METHODS TEACHER Ot 356.9 IDIO PERIPH NEURPTHY NOS 09/26/2015 MIRA BARBOZA STATISTICAL METHODS TEACHER Ot V15.3 HX OF IRRADIATION 09/26/2015 MIRA BARBOZA STATISTICAL METHODS TEACHER Ot V44.3 COLOSTOMY STATUS 09/26/2015 MIRA BARBOZA STATISTICAL METHODS TEACHER Ot V58.69 OTH MED,LT,CURRENT USE 09/26/2015 MIRA BARBOZA STATISTICAL METHODS TEACHER Ot V87.41 PERSONAL HISTORY OF ANTINEOPLASTIC CHEMO 09/26/2015 MIRA BARBOZA STATISTICAL METHODS TEACHER Ot 154.1 MALIGNANT NEOPL RECTUM 09/26/2015 MIRA BARBOZA STATISTICAL METHODS TEACHER Ot 784.0 HEADACHE 09/26/2015 MIRA BARBOZA STATISTICAL METHODS TEACHER Ot 787.01 NAUSEA WITH VOMITING 09/26/2015 MIRA BARBOZA STATISTICAL METHODS TEACHER Ot C20 MALIGNANT NEOPLASM OF RECTUM 09/26/2015 MIRA BARBOZA STATISTICAL METHODS TEACHER Ot I10 ESSENTIAL (PRIMARY) HYPERTENSION 09/26/2015 MIRA BARBOZA STATISTICAL METHODS TEACHER Ot Z79.899 OTHER SUPERINTENDENT FISH HATCHERY (CURRENT) DRUG THERAPY 09/26/2015 MIRA BARBOZA STATISTICAL METHODS TEACHER Ot Z92.21 PERSONAL HISTORY OF ANTINEOPLASTIC CHEMO 09/26/2015 MIRA BARBOZA STATISTICAL METHODS TEACHER Ot Z92.3 PERSONAL HISTORY OF IRRADIATION 09/26/2015 MIRA BARBOZA STATISTICAL METHODS TEACHER Ot C20 MALIGNANT NEOPLASM OF RECTUM 09/26/2015 MIRA BARBOZA STATISTICAL METHODS TEACHER Ot I10 ESSENTIAL (PRIMARY) HYPERTENSION 09/26/2015 MIRA BARBOZA STATISTICAL METHODS TEACHER Ot Z79.899 OTHER SUPERINTENDENT FISH HATCHERY (CURRENT) DRUG THERAPY 09/26/2015 MIRA BARBOZA STATISTICAL METHODS TEACHER Ot Z92.21 PERSONAL HISTORY OF ANTINEOPLASTIC CHEMO 09/26/2015 MIRA BARBOZA STATISTICAL METHODS TEACHER Ot Z92.3 PERSONAL HISTORY OF IRRADIATION 09/26/2015 MIRA BARBOZA STATISTICAL METHODS TEACHER Ot C20 MALIGNANT NEOPLASM OF RECTUM 09/26/2015 MIRA BARBOZA STATISTICAL METHODS TEACHER Ot C20 MALIGNANT NEOPLASM OF RECTUM 09/26/2015 MIRA BARBOZAP Ot R60.9 EDEMA, UNSPECIFIED 09/26/2015 MIRA BARBOZA STATISTICAL METHODS TEACHER Ot C20 MALIGNANT NEOPLASM OF RECTUM 09/26/2015 MIRA BARBOZA STATISTICAL METHODS TEACHER Ot R79.89 OTHER SPECIFIED ABNORMAL FINDINGS OF BLO 09/26/2015 SUSANAJAKE N Ot C20 MALIGNANT NEOPLASM OF RECTUM 09/26/2015 SUSANAJAKE N Ot I10 ESSENTIAL (PRIMARY) HYPERTENSION 09/26/2015 SUSANAJAKE DE SOUZA Farooq Ot Z79.899 OTHER GROUP HOME (CURRENT) DRUG THERAPY 09/26/2015 SUSANAJAKE Ot Z92.21 PERSONAL HISTORY OF ANTINEOPLASTIC CHEMO 09/26/2015 SUSANAJAKE N Ot Z92.3 PERSONAL HISTORY OF IRRADIATION 09/26/2015 SUSANAJAKE DE SOUZA Farooq Ot N13.30 UNSPECIFIED HYDRONEPHROSIS 09/26/2015 MIRA BARBOZA STATISTICAL METHODS TEACHER Ot C20 MALIGNANT NEOPLASM OF RECTUM 09/26/2015 MIRA BARBOZA STATISTICAL METHODS TEACHER Ot I10 ESSENTIAL (PRIMARY) HYPERTENSION 09/26/2015 MIRA BARBOZA STATISTICAL METHODS TEACHER Ot Z79.899 OTHER SUPERINTENDENT FISH HATCHERY (CURRENT) DRUG THERAPY 09/26/2015 MIRA BARBOZA STATISTICAL METHODS TEACHER Ot Z92.21 PERSONAL HISTORY OF ANTINEOPLASTIC CHEMO 09/26/2015 MIRA BARBOZA STATISTICAL METHODS TEACHER Ot Z92.3 PERSONAL HISTORY OF IRRADIATION 09/26/2015 LIMA HULL, GIANCARLO Z Ot N36.8 OTHER SPECIFIED DISORDERS OF URETHRA 09/26/2015 MIRA BARBOZA STATISTICAL METHODS TEACHER Ot C20 MALIGNANT NEOPLASM OF RECTUM 09/26/2015 MIRA BARBOZA STATISTICAL METHODS TEACHER Ot I10 ESSENTIAL (PRIMARY) HYPERTENSION 09/26/2015 MIRA BARBOZA STATISTICAL METHODS TEACHER Ot Z79.899 OTHER SUPERINTENDENT FISH HATCHERY (CURRENT) DRUG THERAPY 09/26/2015 MIRA BARBOZA STATISTICAL METHODS TEACHER Ot Z92.21 PERSONAL HISTORY OF ANTINEOPLASTIC CHEMO 09/26/2015 MIRA BARBOZA STATISTICAL METHODS TEACHER Ot Z92.3 PERSONAL HISTORY OF IRRADIATION 09/26/2015 JAKE JOSEPH Ot C20 MALIGNANT NEOPLASM OF RECTUM 09/26/2015 JAKE JOSEPH Ot I10 ESSENTIAL (PRIMARY) HYPERTENSION 09/26/2015 JAKE JOSEPH Ot Z45.2 ENCOUNTER FOR ADJUSTMENT AND MANAGEMENT 09/26/2015 JAKE JOSEPH Farooq Ot Z79.899 OTHER SUPERINTENDENT FISH HATCHERY (CURRENT) DRUG THERAPY 09/26/2015 JAKE JOSEPH Ot Z92.21 PERSONAL HISTORY OF ANTINEOPLASTIC CHEMO 09/26/2015 JAKE JOSEPH Ot Z92.3 PERSONAL HISTORY OF IRRADIATION 09/27/2015 SEGUNDO LAMA MD, Ot C20 MALIGNANT NEOPLASM OF RECTUM 09/27/2015 SEGUNDO LAMA MD, Ot I10 ESSENTIAL (PRIMARY) HYPERTENSION 09/27/2015 SEGUNDO LAMA MD Ot Z51.11 ENCOUNTER FOR ANTINEOPLASTIC CHEMOTHERAP 09/27/2015 SEGUNDO LAMA MD Ot Z79.899 OTHER SUPERINTENDENT FISH HATCHERY (CURRENT) DRUG THERAPY 09/27/2015 SEGUNDO LAMA MD Ot Z92.3 PERSONAL HISTORY OF IRRADIATION 09/27/2015 MIRA BARBOZA STATISTICAL METHODS TEACHER Ot C20 MALIGNANT NEOPLASM OF RECTUM 09/27/2015 MIRA BARBOZAP Ot I10 ESSENTIAL (PRIMARY) HYPERTENSION 09/27/2015 MIRA BARBOZAP Ot Z79.899 OTHER GROUP HOME (CURRENT) DRUG THERAPY 09/27/2015 MIRA BARBOZA STATISTICAL METHODS TEACHER Ot Z92.21 PERSONAL HISTORY OF ANTINEOPLASTIC CHEMO 09/27/2015 MIRA BARBOZA STATISTICAL METHODS TEACHER Ot Z92.3 PERSONAL HISTORY OF IRRADIATION 10/12/2015 JAKE JOSEPH Farooq Ot N13.30 UNSPECIFIED HYDRONEPHROSIS 10/12/2015 SEGUNDO LAMA MD Ot C20 MALIGNANT NEOPLASM OF RECTUM 10/12/2015 SEGUNDO LAMA MD Ot I10 ESSENTIAL (PRIMARY) HYPERTENSION 10/12/2015 SEGUNDO LAMA MD Ot Z51.11 ENCOUNTER FOR ANTINEOPLASTIC CHEMOTHERAP 10/12/2015 ESGUNDO LAMA MD Ot Z79.899 OTHER SUPERINTENDENT FISH HATCHERY (CURRENT) DRUG THERAPY 10/12/2015 SEGUNDO LAMA MD Ot Z92.3 PERSONAL HISTORY OF IRRADIATION 10/13/2015 MIRA BARBOZAP Ot C20 MALIGNANT NEOPLASM OF RECTUM 10/13/2015 MIRA BARBOZA STATISTICAL METHODS TEACHER Ot I10 ESSENTIAL (PRIMARY) HYPERTENSION 10/13/2015 MIRA BARBOZA STATISTICAL METHODS TEACHER Ot Z79.899 OTHER GROUP HOME (CURRENT) DRUG THERAPY 10/13/2015 MIRA BARBOZA STATISTICAL METHODS TEACHER Ot Z92.21 PERSONAL HISTORY OF ANTINEOPLASTIC CHEMO 10/13/2015 MIRA BARBOZA STATISTICAL METHODS TEACHER Ot Z92.3 PERSONAL HISTORY OF IRRADIATION 10/18/2015 MIRA BABROZA STATISTICAL METHODS TEACHER Ot C20 MALIGNANT NEOPLASM OF RECTUM 10/18/2015 MIRA BARBOZA STATISTICAL METHODS TEACHER Ot I10 ESSENTIAL (PRIMARY) HYPERTENSION 10/18/2015 MIRA BARBOZA STATISTICAL METHODS TEACHER Ot Z79.899 OTHER GROUP HOME (CURRENT) DRUG THERAPY 10/18/2015 MIRA BARBOZA STATISTICAL METHODS TEACHER Ot Z92.21 PERSONAL HISTORY OF ANTINEOPLASTIC CHEMO 10/18/2015 MIRA BARBZOA STATISTICAL METHODS TEACHER Ot Z92.3 PERSONAL HISTORY OF IRRADIATION 10/22/2015 SUSANA JAKE N Ot C20 MALIGNANT NEOPLASM OF RECTUM 10/22/2015 SUSANA, JAKE N Ot I10 ESSENTIAL (PRIMARY) HYPERTENSION 10/22/2015 SUSANA, JAKE N Ot R82.90 UNSPECIFIED ABNORMAL FINDINGS IN URINE 10/22/2015 SUSANA, JAKE N Ot Z51.11 ENCOUNTER FOR ANTINEOPLASTIC CHEMOTHERAP 10/22/2015 SUSANAJAKE N Ot Z79.899 OTHER GROUP HOME (CURRENT) DRUG THERAPY 10/22/2015 SUSANAJAKE N Ot Z92.21 PERSONAL HISTORY OF ANTINEOPLASTIC CHEMO 10/22/2015 SUSANAJAKE N Ot Z92.3 PERSONAL HISTORY OF IRRADIATION 10/23/2015 SUSANAJAKE N Ot C20 MALIGNANT NEOPLASM OF RECTUM 10/23/2015 SUSANA JAKE N Ot I10 ESSENTIAL (PRIMARY) HYPERTENSION 10/23/2015 SUSANAJAKE N Ot R82.90 UNSPECIFIED ABNORMAL FINDINGS IN URINE 10/23/2015 SUSANAJAKE N Ot Z51.11 ENCOUNTER FOR ANTINEOPLASTIC CHEMOTHERAP 10/23/2015 SUSANA, JAKE N Ot Z79.899 OTHER GROUP HOME (CURRENT) DRUG THERAPY 10/23/2015 JAKE JOSEPH N Ot Z92.21 PERSONAL HISTORY OF ANTINEOPLASTIC CHEMO 10/23/2015 JAKE JOSEPH N Ot Z92.3 PERSONAL HISTORY OF IRRADIATION 10/26/2015 JAKE JOSEPH N Ot C20 MALIGNANT NEOPLASM OF RECTUM 10/26/2015 JAKE JOSEPH N Ot I10 ESSENTIAL (PRIMARY) HYPERTENSION 10/26/2015 JAKE JOSEPH N Ot Z79.899 OTHER GROUP HOME (CURRENT) DRUG THERAPY 10/26/2015 JAKE JOSEPH N Ot Z92.21 PERSONAL HISTORY OF ANTINEOPLASTIC CHEMO 10/26/2015 JAKE JOSEPH N Ot Z92.3 PERSONAL HISTORY OF IRRADIATION 10/26/2015 MIRA BARBOZA S STATISTICAL METHODS TEACHER Ot C20 MALIGNANT NEOPLASM OF RECTUM 10/26/2015 MIRA BARBOZA STATISTICAL METHODS TEACHER Ot I10 ESSENTIAL (PRIMARY) HYPERTENSION 10/26/2015 MIRA BARBOZA STATISTICAL METHODS TEACHER Ot Z79.899 OTHER GROUP HOME (CURRENT) DRUG THERAPY 10/26/2015 BARBOZAMIRA Khan S STATISTICAL METHODS TEACHER Ot Z92.21 PERSONAL HISTORY OF ANTINEOPLASTIC CHEMO 10/26/2015 BARBOZAMIRA Khan S STATISTICAL METHODS TEACHER Ot Z92.3 PERSONAL HISTORY OF IRRADIATION 11/08/2015 JAKE JOSEPH N Ot C20 MALIGNANT NEOPLASM OF RECTUM 11/08/2015 JAKE JOSEPH N Ot I10 ESSENTIAL (PRIMARY) HYPERTENSION 11/08/2015 SUSANAJAKE DE SOUZA N Ot Z51.11 ENCOUNTER FOR ANTINEOPLASTIC CHEMOTHERAP 11/08/2015 JAKE JOSEPH N Ot Z79.899 OTHER SUPERINTENDENT FISH HATCHERY (CURRENT) DRUG THERAPY 11/08/2015 JAKE JOSEPH N Ot Z92.21 PERSONAL HISTORY OF ANTINEOPLASTIC CHEMO 11/08/2015 JAKE JOSEPH N Ot Z92.3 PERSONAL HISTORY OF IRRADIATION 11/08/2015 MIRA BARBOZA S STATISTICAL METHODS TEACHER Ot C20 MALIGNANT NEOPLASM OF RECTUM 11/09/2015 JAKE JOSEPH N Ot N13.30 UNSPECIFIED HYDRONEPHROSIS 11/20/2015 JAKE JOSEPH N Ot C20 MALIGNANT NEOPLASM OF RECTUM 11/20/2015 JAKE JOSEPH N Ot I10 ESSENTIAL (PRIMARY) HYPERTENSION 11/20/2015 JAKE JOSEPH N Ot Z51.11 ENCOUNTER FOR ANTINEOPLASTIC CHEMOTHERAP 11/20/2015 JAKE JOSEPH N Ot Z79.899 OTHER GROUP HOME (CURRENT) DRUG THERAPY 11/20/2015 SUSANA, JAKE N Ot Z92.21 PERSONAL HISTORY OF ANTINEOPLASTIC CHEMO 11/20/2015 JAKE JOSEPH Ot Z92.3 PERSONAL HISTORY OF IRRADIATION 11/20/2015 MIRA BARBOZA S STATISTICAL METHODS TEACHER Ot C20 MALIGNANT NEOPLASM OF RECTUM 11/21/2015 JAKE JOSEPH Ot N13.30 UNSPECIFIED HYDRONEPHROSIS 12/03/2015 JAKE JOSEPH Ot C20 MALIGNANT NEOPLASM OF RECTUM 12/03/2015 JAKE JOSEPH Ot I10 ESSENTIAL (PRIMARY) HYPERTENSION 12/03/2015 JAKE JOSEPH Ot Z51.11 ENCOUNTER FOR ANTINEOPLASTIC CHEMOTHERAP 12/03/2015 JAKE JOSEPH Ot Z79.899 OTHER SUPERINTENDENT FISH HATCHERY (CURRENT) DRUG THERAPY 12/03/2015 JAKE JOSEPH Ot Z92.21 PERSONAL HISTORY OF ANTINEOPLASTIC CHEMO 12/03/2015 JAKE JOSEPH Ot Z92.3 PERSONAL HISTORY OF IRRADIATION 12/05/2015 JAKE JOSEPH Ot 154.1 MALIGNANT NEOPL RECTUM 12/05/2015 MIRA BARBOZA S STATISTICAL METHODS TEACHER Ot 154.1 MALIGNANT NEOPL RECTUM 12/05/2015 MIRA BARBOZA S STATISTICAL METHODS TEACHER Ot 356.9 IDIO PERIPH NEURPTHY NOS 12/05/2015 MIRA BARBOZA STATISTICAL METHODS TEACHER Ot V15.3 HX OF IRRADIATION 12/05/2015 MIRA BARBOZA STATISTICAL METHODS TEACHER Ot V44.3 COLOSTOMY STATUS 12/05/2015 MIRA BARBOZA STATISTICAL METHODS TEACHER Ot V58.69 OTH MED,LT,CURRENT USE 12/05/2015 BARBOZAMIRA Khan S STATISTICAL METHODS TEACHER Ot V87.41 PERSONAL HISTORY OF ANTINEOPLASTIC CHEMO 12/05/2015 JAKE JOSEPH Ot 724.5 BACKACHE NOS 12/05/2015 MIRA BARBOZA S STATISTICAL METHODS TEACHER Ot 154.1 MALIGNANT NEOPL RECTUM 12/05/2015 MIRA BARBOZA S STATISTICAL METHODS TEACHER Ot 356.9 IDIO PERIPH NEURPTHY NOS 12/05/2015 MIRA BARBOZA S STATISTICAL METHODS TEACHER Ot V15.3 HX OF IRRADIATION 12/05/2015 BARBOZAMIRA Khan S STATISTICAL METHODS TEACHER Ot V44.3 COLOSTOMY STATUS 12/05/2015 MIRA BARBOZA S STATISTICAL METHODS TEACHER Ot V58.69 OTH MED,LT,CURRENT USE 12/05/2015 BARBOZAMIRA Khan S STATISTICAL METHODS TEACHER Ot V87.41 PERSONAL HISTORY OF ANTINEOPLASTIC CHEMO 12/05/2015 MIRA BARBOZA S STATISTICAL METHODS TEACHER Ot 154.1 MALIGNANT NEOPL RECTUM 12/05/2015 BARBOZAMIRA Khan STATISTICAL METHODS TEACHER Ot 784.0 HEADACHE 12/05/2015 BARBOZAMIRA Khan STATISTICAL METHODS TEACHER Ot 787.01 NAUSEA WITH VOMITING 12/05/2015 BARBOZAMIRA Khan STATISTICAL METHODS TEACHER Ot C20 MALIGNANT NEOPLASM OF RECTUM 12/05/2015 JABARI MIRA Khan STATISTICAL METHODS TEACHER Ot I10 ESSENTIAL (PRIMARY) HYPERTENSION 12/05/2015 JABARI MIRA Khan STATISTICAL METHODS TEACHER Ot Z79.899 OTHER SUPERINTENDENT FISH HATCHERY (CURRENT) DRUG THERAPY 12/05/2015 JABARI MIRA Khan STATISTICAL METHODS TEACHER Ot Z92.21 PERSONAL HISTORY OF ANTINEOPLASTIC CHEMO 12/05/2015 JABARI MIRA Khan STATISTICAL METHODS TEACHER Ot Z92.3 PERSONAL HISTORY OF IRRADIATION 12/05/2015 GINGER BARBOZAKUSUM Khan STATISTICAL METHODS TEACHER Ot C20 MALIGNANT NEOPLASM OF RECTUM 12/05/2015 GINGER BARBOZAKUSUM Khan STATISTICAL METHODS TEACHER Ot I10 ESSENTIAL (PRIMARY) HYPERTENSION 12/05/2015 GINGER BARBOZAKUSUM Khan STATISTICAL METHODS TEACHER Ot Z79.899 OTHER GROUP HOME (CURRENT) DRUG THERAPY 12/05/2015 JABARI MIRA Khan STATISTICAL METHODS TEACHER Ot Z92.21 PERSONAL HISTORY OF ANTINEOPLASTIC CHEMO 12/05/2015 JABARI MIRA Khan STATISTICAL METHODS TEACHER Ot Z92.3 PERSONAL HISTORY OF IRRADIATION 12/05/2015 JABARI MIRA Khan STATISTICAL METHODS TEACHER Ot C20 MALIGNANT NEOPLASM OF RECTUM 12/05/2015 JABARI MIRA Khan STATISTICAL METHODS TEACHER Ot C20 MALIGNANT NEOPLASM OF RECTUM 12/05/2015 GINGER BARBOZAKUSUM Khan STATISTICAL METHODS TEACHER Ot R60.9 EDEMA, UNSPECIFIED 12/05/2015 JABARI MIRA Khan STATISTICAL METHODS TEACHER Ot C20 MALIGNANT NEOPLASM OF RECTUM 12/05/2015 JABARI MIRA Khan STATISTICAL METHODS TEACHER Ot R79.89 OTHER SPECIFIED ABNORMAL FINDINGS OF BLO 12/05/2015 SUSANAJAKE Ot N13.30 UNSPECIFIED HYDRONEPHROSIS 12/05/2015 GINGER BARBOZAKUSUM Khan STATISTICAL METHODS TEACHER Ot C20 MALIGNANT NEOPLASM OF RECTUM 12/05/2015 GINGER BARBOZAKUSUM Khan STATISTICAL METHODS TEACHER Ot I10 ESSENTIAL (PRIMARY) HYPERTENSION 12/05/2015 JABARI GINGERKUSUM Bill STATISTICAL METHODS TEACHER Ot Z79.899 OTHER GROUP HOME (CURRENT) DRUG THERAPY 12/05/2015 GINGER BARBOZAKUSUM Bill STATISTICAL METHODS TEACHER Ot Z92.21 PERSONAL HISTORY OF ANTINEOPLASTIC CHEMO 12/05/2015 MIRA BARBOZA STATISTICAL METHODS TEACHER Ot Z92.3 PERSONAL HISTORY OF IRRADIATION 12/05/2015 LIMA HULL, GIANCARLO Jacobo Ot N36.8 OTHER SPECIFIED DISORDERS OF URETHRA 12/05/2015 MIRA BARBOZA STATISTICAL METHODS TEACHER Ot C20 MALIGNANT NEOPLASM OF RECTUM 12/05/2015 MIRA BARBOZA STATISTICAL METHODS TEACHER Ot I10 ESSENTIAL (PRIMARY) HYPERTENSION 12/05/2015 BARBOZAMIRA Khan STATISTICAL METHODS TEACHER Ot Z79.899 OTHER GROUP HOME (CURRENT) DRUG THERAPY 12/05/2015 MIRA BARBOZA STATISTICAL METHODS TEACHER Ot Z92.21 PERSONAL HISTORY OF ANTINEOPLASTIC CHEMO 12/05/2015 MIRA BARBOZA STATISTICAL METHODS TEACHER Ot Z92.3 PERSONAL HISTORY OF IRRADIATION 12/05/2015 SUSANAJAKE DE SOUZA N Ot C20 MALIGNANT NEOPLASM OF RECTUM 12/05/2015 SUSANAJAKE DE SOUZA N Ot I10 ESSENTIAL (PRIMARY) HYPERTENSION 12/05/2015 SUSANAJAKE DE SOUZA Farooq Ot Z45.2 ENCOUNTER FOR ADJUSTMENT AND MANAGEMENT 12/05/2015 SUASNAJAKE DE SOUZA N Ot Z79.899 OTHER GROUP HOME (CURRENT) DRUG THERAPY 12/05/2015 SUSANAJAKE DE SOUZA N Ot Z92.21 PERSONAL HISTORY OF ANTINEOPLASTIC CHEMO 12/05/2015 SUSANAJAKE DE SOUZA N Ot Z92.3 PERSONAL HISTORY OF IRRADIATION 12/05/2015 SUSANAJAKE DE SOUZA Farooq Ot N13.30 UNSPECIFIED HYDRONEPHROSIS 12/05/2015 SEGUNDO LAMA MD Ot C20 MALIGNANT NEOPLASM OF RECTUM 12/05/2015 SEGUNDO LAMA MD Ot I10 ESSENTIAL (PRIMARY) HYPERTENSION 12/05/2015 SEGUNDO LAMA MD Ot Z51.11 ENCOUNTER FOR ANTINEOPLASTIC CHEMOTHERAP 12/05/2015 SEGUNOD LAMA MD Ot Z79.899 OTHER GROUP HOME (CURRENT) DRUG THERAPY 12/05/2015 SEGUNDO LAMA MD Ot Z92.3 PERSONAL HISTORY OF IRRADIATION 12/05/2015 MIRA BARBOZA STATISTICAL METHODS TEACHER Ot C20 MALIGNANT NEOPLASM OF RECTUM 12/05/2015 MIRA BARBOZA STATISTICAL METHODS TEACHER Ot I10 ESSENTIAL (PRIMARY) HYPERTENSION 12/05/2015 MIRA BARBOZA STATISTICAL METHODS TEACHER Ot Z79.899 OTHER SUPERINTENDENT FISH HATCHERY (CURRENT) DRUG THERAPY 12/05/2015 MIRA BARBOZA STATISTICAL METHODS TEACHER Ot Z92.21 PERSONAL HISTORY OF ANTINEOPLASTIC CHEMO 12/05/2015 MIRA BARBOZA STATISTICAL METHODS TEACHER Ot Z92.3 PERSONAL HISTORY OF IRRADIATION 12/05/2015 MIRA BARBOZA STATISTICAL METHODS TEACHER Ot C20 MALIGNANT NEOPLASM OF RECTUM 12/05/2015 JAKE JOSEPH Ot N13.30 UNSPECIFIED HYDRONEPHROSIS 12/05/2015 JAKE JOSEPH Ot C20 MALIGNANT NEOPLASM OF RECTUM 12/05/2015 JAKE JOSEPH Ot I10 ESSENTIAL (PRIMARY) HYPERTENSION 12/05/2015 JAKE JOSEPH Ot Z51.11 ENCOUNTER FOR ANTINEOPLASTIC CHEMOTHERAP 12/05/2015 JAKE JOSEPH Ot Z79.899 OTHER GROUP HOME (CURRENT) DRUG THERAPY 12/05/2015 JAKE JOSEPH Ot Z92.21 PERSONAL HISTORY OF ANTINEOPLASTIC CHEMO 12/05/2015 JAKE JOSEPH Ot Z92.3 PERSONAL HISTORY OF IRRADIATION 12/05/2015 JAKE JOSEPH Ot C20 MALIGNANT NEOPLASM OF RECTUM 12/05/2015 JAKE JOSEPH Ot I10 ESSENTIAL (PRIMARY) HYPERTENSION 12/05/2015 JAKE JOSEPH Ot Z51.11 ENCOUNTER FOR ANTINEOPLASTIC CHEMOTHERAP 12/05/2015 JAKE JOSEPH Ot Z79.899 OTHER SUPERINTENDENT FISH HATCHERY (CURRENT) DRUG THERAPY 12/05/2015 JAKE JOSEPH Ot Z92.21 PERSONAL HISTORY OF ANTINEOPLASTIC CHEMO 12/05/2015 JAKE JOSEPH Ot Z92.3 PERSONAL HISTORY OF IRRADIATION 12/06/2015 MIRA BARBOZAP Ot M79.662 PAIN IN LEFT LOWER LEG 12/06/2015 MIRA BARBOZAP Ot R22.42 LOCALIZED SWELLING, MASS AND LUMP, LEFT 12/11/2015 SUSANA KATRANDALL Farooq Ot 154.1 MALIGNANT NEOPL RECTUM 12/11/2015 MIRA BARBOZA STATISTICAL METHODS TEACHER Ot 154.1 MALIGNANT NEOPL RECTUM 12/11/2015 MIRA BARBOZAP Ot 356.9 IDIO PERIPH NEURPTHY NOS 12/11/2015 MIRA BARBOZAP Ot V15.3 HX OF IRRADIATION 12/11/2015 MIRA BARBOZAP Ot V44.3 COLOSTOMY STATUS 12/11/2015 MIRA BARBOZAP Ot V58.69 OTH MED,LT,CURRENT USE 12/11/2015 MIRA BARBOZA STATISTICAL METHODS TEACHER Ot V87.41 PERSONAL HISTORY OF ANTINEOPLASTIC CHEMO 12/11/2015 JAKE JOSEPH N Ot 724.5 BACKACHE NOS 12/11/2015 MIRA BARBOZA STATISTICAL METHODS TEACHER Ot 154.1 MALIGNANT NEOPL RECTUM 12/11/2015 MIRA BARBOZA STATISTICAL METHODS TEACHER Ot 356.9 IDIO PERIPH NEURPTHY NOS 12/11/2015 MIRA BARBOZA STATISTICAL METHODS TEACHER Ot V15.3 HX OF IRRADIATION 12/11/2015 MIRA BARBOZA STATISTICAL METHODS TEACHER Ot V44.3 COLOSTOMY STATUS 12/11/2015 MIRA BARBOZA STATISTICAL METHODS TEACHER Ot V58.69 OTH MED,LT,CURRENT USE 12/11/2015 MIRA BARBOZA STATISTICAL METHODS TEACHER Ot V87.41 PERSONAL HISTORY OF ANTINEOPLASTIC CHEMO 12/11/2015 MIRA BARBOZA STATISTICAL METHODS TEACHER Ot 154.1 MALIGNANT NEOPL RECTUM 12/11/2015 MIRA BARBOZA STATISTICAL METHODS TEACHER Ot 784.0 HEADACHE 12/11/2015 MIRA BARBOZA STATISTICAL METHODS TEACHER Ot 787.01 NAUSEA WITH VOMITING 12/11/2015 MIRA BARBOZA STATISTICAL METHODS TEACHER Ot C20 MALIGNANT NEOPLASM OF RECTUM 12/11/2015 MIRA BARBOZA STATISTICAL METHODS TEACHER Ot I10 ESSENTIAL (PRIMARY) HYPERTENSION 12/11/2015 MIRA BARBOZA STATISTICAL METHODS TEACHER Ot Z79.899 OTHER GROUP HOME (CURRENT) DRUG THERAPY 12/11/2015 MIRA BARBOZA STATISTICAL METHODS TEACHER Ot Z92.21 PERSONAL HISTORY OF ANTINEOPLASTIC CHEMO 12/11/2015 MIRA BARBOZA STATISTICAL METHODS TEACHER Ot Z92.3 PERSONAL HISTORY OF IRRADIATION 12/11/2015 MIRA BARBOZA STATISTICAL METHODS TEACHER Ot C20 MALIGNANT NEOPLASM OF RECTUM 12/11/2015 MIRA BARBOZA STATISTICAL METHODS TEACHER Ot I10 ESSENTIAL (PRIMARY) HYPERTENSION 12/11/2015 MIRA BARBOZA STATISTICAL METHODS TEACHER Ot Z79.899 OTHER GROUP HOME (CURRENT) DRUG THERAPY 12/11/2015 MRIA BARBOZA STATISTICAL METHODS TEACHER Ot Z92.21 PERSONAL HISTORY OF ANTINEOPLASTIC CHEMO 12/11/2015 MIRA BARBOZA STATISTICAL METHODS TEACHER Ot Z92.3 PERSONAL HISTORY OF IRRADIATION 12/11/2015 MIRA BARBOZA STATISTICAL METHODS TEACHER Ot C20 MALIGNANT NEOPLASM OF RECTUM 12/11/2015 MIRA BARBOZA STATISTICAL METHODS TEACHER Ot C20 MALIGNANT NEOPLASM OF RECTUM 12/11/2015 MIRA BARBOZA STATISTICAL METHODS TEACHER Ot R60.9 EDEMA, UNSPECIFIED 12/11/2015 MIRA BARBOZA STATISTICAL METHODS TEACHER Ot C20 MALIGNANT NEOPLASM OF RECTUM 12/11/2015 MIRA BARBOZA STATISTICAL METHODS TEACHER Ot R79.89 OTHER SPECIFIED ABNORMAL FINDINGS OF BLO 12/11/2015 SUSANAJAKE DE SOUZA Farooq Ot N13.30 UNSPECIFIED HYDRONEPHROSIS 12/11/2015 MIRA BARBOZA S STATISTICAL METHODS TEACHER Ot C20 MALIGNANT NEOPLASM OF RECTUM 12/11/2015 MIRA BARBOZA STATISTICAL METHODS TEACHER Ot I10 ESSENTIAL (PRIMARY) HYPERTENSION 12/11/2015 MIRA BARBOZA STATISTICAL METHODS TEACHER Ot Z79.899 OTHER GROUP HOME (CURRENT) DRUG THERAPY 12/11/2015 MIRA BARBOZA STATISTICAL METHODS TEACHER Ot Z92.21 PERSONAL HISTORY OF ANTINEOPLASTIC CHEMO 12/11/2015 MIRA BARBOZA STATISTICAL METHODS TEACHER Ot Z92.3 PERSONAL HISTORY OF IRRADIATION 12/11/2015 LIMA HULL, GIANCARLO Z Ot N36.8 OTHER SPECIFIED DISORDERS OF URETHRA 12/11/2015 MIRA BARBOZA STATISTICAL METHODS TEACHER Ot C20 MALIGNANT NEOPLASM OF RECTUM 12/11/2015 MIRA BARBOZA STATISTICAL METHODS TEACHER Ot I10 ESSENTIAL (PRIMARY) HYPERTENSION 12/11/2015 MIRA BARBOZA STATISTICAL METHODS TEACHER Ot Z79.899 OTHER GROUP HOME (CURRENT) DRUG THERAPY 12/11/2015 MIRA BARBOZA STATISTICAL METHODS TEACHER Ot Z92.21 PERSONAL HISTORY OF ANTINEOPLASTIC CHEMO 12/11/2015 MIRA BARBOZA STATISTICAL METHODS TEACHER Ot Z92.3 PERSONAL HISTORY OF IRRADIATION 12/11/2015 SUSANAKATRANDALL N Ot C20 MALIGNANT NEOPLASM OF RECTUM 12/11/2015 KAT JOSEPHRANDALL Farooq Ot I10 ESSENTIAL (PRIMARY) HYPERTENSION 12/11/2015 SUSANA JAKE N Ot Z45.2 ENCOUNTER FOR ADJUSTMENT AND MANAGEMENT 12/11/2015 SUSANA JAKE N Ot Z79.899 OTHER SUPERINTENDENT FISH HATCHERY (CURRENT) DRUG THERAPY 12/11/2015 KAT JOSEPHRANDALL N Ot Z92.21 PERSONAL HISTORY OF ANTINEOPLASTIC CHEMO 12/11/2015 JAKE JOSEPH N Ot Z92.3 PERSONAL HISTORY OF IRRADIATION 12/11/2015 JAKE JOSEPH N Ot N13.30 UNSPECIFIED HYDRONEPHROSIS 12/11/2015 KELBY HULL, SEGUNDO Kessler Ot C20 MALIGNANT NEOPLASM OF RECTUM 12/11/2015 SEGUNDO LAMA MD Ot I10 ESSENTIAL (PRIMARY) HYPERTENSION 12/11/2015 KELBY HULL, SEGUNDO Kessler Ot Z51.11 ENCOUNTER FOR ANTINEOPLASTIC CHEMOTHERAP 12/11/2015 SEGUNDO LAMA MD Ot Z79.899 OTHER GROUP HOME (CURRENT) DRUG THERAPY 12/11/2015 SEGUNDO LAMA MD Ot Z92.3 PERSONAL HISTORY OF IRRADIATION 12/11/2015 BARBOZAMIRA Khan S STATISTICAL METHODS TEACHER Ot C20 MALIGNANT NEOPLASM OF RECTUM 12/11/2015 MIRA BAROBZA S STATISTICAL METHODS TEACHER Ot I10 ESSENTIAL (PRIMARY) HYPERTENSION 12/11/2015 MIRA BARBOZA S STATISTICAL METHODS TEACHER Ot Z79.899 OTHER SUPERINTENDENT FISH HATCHERY (CURRENT) DRUG THERAPY 12/11/2015 BARBOZAMIRA Khan S STATISTICAL METHODS TEACHER Ot Z92.21 PERSONAL HISTORY OF ANTINEOPLASTIC CHEMO 12/11/2015 BARBOZAMIRA Khan S STATISTICAL METHODS TEACHER Ot Z92.3 PERSONAL HISTORY OF IRRADIATION 12/11/2015 MIRA BARBOZA S STATISTICAL METHODS TEACHER Ot C20 MALIGNANT NEOPLASM OF RECTUM 12/11/2015 SUSANAJAKE N Ot N13.30 UNSPECIFIED HYDRONEPHROSIS 12/11/2015 SUSANAJAKE N Ot C20 MALIGNANT NEOPLASM OF RECTUM 12/11/2015 SUSANAJAKE N Ot I10 ESSENTIAL (PRIMARY) HYPERTENSION 12/11/2015 SUSANAJAKE Ot Z51.11 ENCOUNTER FOR ANTINEOPLASTIC CHEMOTHERAP 12/11/2015 SUSANAJAKE N Ot Z79.899 OTHER GROUP HOME (CURRENT) DRUG THERAPY 12/11/2015 SUSANAJAKE N Ot Z92.21 PERSONAL HISTORY OF ANTINEOPLASTIC CHEMO 12/11/2015 SUSANAJAKE N Ot Z92.3 PERSONAL HISTORY OF IRRADIATION 12/11/2015 MIRA BARBOZA S STATISTICAL METHODS TEACHER Ot M79.662 PAIN IN LEFT LOWER LEG 12/11/2015 MIRA BARBOZA STATISTICAL METHODS TEACHER Ot R22.42 LOCALIZED SWELLING, MASS AND LUMP, LEFT 12/12/2015 JAKE JOSEPH N Ot N13.30 UNSPECIFIED HYDRONEPHROSIS 12/12/2015 SSUANAJAKE DE SOUZA N Ot N13.30 UNSPECIFIED HYDRONEPHROSIS 12/14/2015 MIRA BARBOZA S STATISTICAL METHODS TEACHER Ot M79.662 PAIN IN LEFT LOWER LEG 12/14/2015 MIRA BARBOZA S STATISTICAL METHODS TEACHER Ot R22.42 LOCALIZED SWELLING, MASS AND LUMP, LEFT 12/14/2015 MIRA BARBOZA STATISTICAL METHODS TEACHER Ot M79.662 PAIN IN LEFT LOWER LEG 12/14/2015 MIRA BARBOZA STATISTICAL METHODS TEACHER Ot R22.42 LOCALIZED SWELLING, MASS AND LUMP, LEFT 12/14/2015 BARBOZAMIRA S STATISTICAL METHODS TEACHER Ot M79.662 PAIN IN LEFT LOWER LEG 12/14/2015 MIRA BARBOZA S STATISTICAL METHODS TEACHER Ot R22.42 LOCALIZED SWELLING, MASS AND LUMP, LEFT 12/14/2015 BARBOZAMIRA STATISTICAL METHODS TEACHER Ot M79.662 PAIN IN LEFT LOWER LEG 12/14/2015 MIRA BARBOZA STATISTICAL METHODS TEACHER Ot R22.42 LOCALIZED SWELLING, MASS AND LUMP, LEFT 12/18/2015 SUSANAJAKE Ot C20 MALIGNANT NEOPLASM OF RECTUM 12/18/2015 SUSANA, KATRANDALL Farooq Ot I10 ESSENTIAL (PRIMARY) HYPERTENSION 12/18/2015 JAKE JOSEPH Ot Z51.11 ENCOUNTER FOR ANTINEOPLASTIC CHEMOTHERAP 12/18/2015 JAKE JOSEPH Ot Z79.899 OTHER SUPERINTENDENT FISH HATCHERY (CURRENT) DRUG THERAPY 12/18/2015 JAKE JOSEPH Farooq Ot Z92.21 PERSONAL HISTORY OF ANTINEOPLASTIC CHEMO 12/18/2015 SUSANAJAKE Ot Z92.3 PERSONAL HISTORY OF IRRADIATION 12/19/2015 JAKE JOSEPH Ot C20 MALIGNANT NEOPLASM OF RECTUM 12/19/2015 SUSANA JAKE Trivedi Ot I10 ESSENTIAL (PRIMARY) HYPERTENSION 12/19/2015 SUSANAJAKE Ot Z45.2 ENCOUNTER FOR ADJUSTMENT AND MANAGEMENT 12/19/2015 SUSANAJAKE Ot Z79.899 OTHER GROUP HOME (CURRENT) DRUG THERAPY 12/19/2015 SUSANAJAKE Ot Z92.21 PERSONAL HISTORY OF ANTINEOPLASTIC CHEMO 12/19/2015 SUSANAJAKE N Ot Z92.3 PERSONAL HISTORY OF IRRADIATION 12/20/2015 MIRA BARBOZA S STATISTICAL METHODS TEACHER Ot M79.662 PAIN IN LEFT LOWER LEG 12/20/2015 MIRA BARBOZA S STATISTICAL METHODS TEACHER Ot R22.42 LOCALIZED SWELLING, MASS AND LUMP, LEFT 12/20/2015 SUSANA, JAKE Trivedi Ot N13.30 UNSPECIFIED HYDRONEPHROSIS 12/21/2015 JAKE JOSEPH Ot C20 MALIGNANT NEOPLASM OF RECTUM 12/21/2015 JAKE JOSEPH N Ot I10 ESSENTIAL (PRIMARY) HYPERTENSION 12/21/2015 JAKE JOSEPH N Ot Z45.2 ENCOUNTER FOR ADJUSTMENT AND MANAGEMENT 12/21/2015 JAKE JOSEPH N Ot Z79.899 OTHER SUPERINTENDENT FISH HATCHERY (CURRENT) DRUG THERAPY 12/21/2015 JAKE JOSEPH N Ot Z92.21 PERSONAL HISTORY OF ANTINEOPLASTIC CHEMO 12/21/2015 JAKE JOSEPH N Ot Z92.3 PERSONAL HISTORY OF IRRADIATION 01/02/2016 JAKE JOSEPH N Ot C20 MALIGNANT NEOPLASM OF RECTUM 01/02/2016 JAKE JOSEPH N Ot I10 ESSENTIAL (PRIMARY) HYPERTENSION 01/02/2016 JAKE JOSEPH N Ot Z51.11 ENCOUNTER FOR ANTINEOPLASTIC CHEMOTHERAP 01/02/2016 JAKE JOSEPH N Ot Z79.899 OTHER SUPERINTENDENT FISH HATCHERY (CURRENT) DRUG THERAPY 01/02/2016 JAKE JOSEPH N Ot Z92.21 PERSONAL HISTORY OF ANTINEOPLASTIC CHEMO 01/02/2016 JAKE JOSEPH N Ot Z92.3 PERSONAL HISTORY OF IRRADIATION 01/07/2016 JAKE JOSEPH N Ot C20 MALIGNANT NEOPLASM OF RECTUM 01/07/2016 JAKE JOSEPH N Ot I10 ESSENTIAL (PRIMARY) HYPERTENSION 01/07/2016 JAKE JOSEPH N Ot Z51.11 ENCOUNTER FOR ANTINEOPLASTIC CHEMOTHERAP 01/07/2016 JAKE JOSEPH N Ot Z79.899 OTHER SUPERINTENDENT FISH HATCHERY (CURRENT) DRUG THERAPY 01/07/2016 JAKE JOSEPH N Ot Z92.21 PERSONAL HISTORY OF ANTINEOPLASTIC CHEMO 01/07/2016 JAKE JOSEPH N Ot Z92.3 PERSONAL HISTORY OF IRRADIATION 01/08/2016 JAKE JOSEPH Farooq Ot N13.30 UNSPECIFIED HYDRONEPHROSIS 01/10/2016 JAKE JOSEPH N Ot C20 MALIGNANT NEOPLASM OF RECTUM 01/10/2016 JAKE JOSEPH N Ot I10 ESSENTIAL (PRIMARY) HYPERTENSION 01/10/2016 JAKE JOSEPH N Ot Z79.899 OTHER SUPERINTENDENT FISH HATCHERY (CURRENT) DRUG THERAPY 01/10/2016 JAKE JOSEPH N Ot Z92.21 PERSONAL HISTORY OF ANTINEOPLASTIC CHEMO 01/10/2016 SUSANAJAKE DE SOUZA N Ot Z92.3 PERSONAL HISTORY OF IRRADIATION 01/18/2016 JAKE JOSEPH N Ot C20 MALIGNANT NEOPLASM OF RECTUM 01/18/2016 JAKE JOSEPH Ot I10 ESSENTIAL (PRIMARY) HYPERTENSION 01/18/2016 JAKE JOSEPH Ot Z51.11 ENCOUNTER FOR ANTINEOPLASTIC CHEMOTHERAP 01/18/2016 JAKE JOSEPH Ot Z79.899 OTHER GROUP HOME (CURRENT) DRUG THERAPY 01/18/2016 JAKE JOSEPH Ot Z92.21 PERSONAL HISTORY OF ANTINEOPLASTIC CHEMO 01/18/2016 JAKE JOSEPH Ot Z92.3 PERSONAL HISTORY OF IRRADIATION 01/30/2016 JAKE JOSEPH Ot C20 MALIGNANT NEOPLASM OF RECTUM 01/30/2016 JAKE JOSEPH Ot I10 ESSENTIAL (PRIMARY) HYPERTENSION 01/30/2016 JAKE JOSEPH Ot Z51.11 ENCOUNTER FOR ANTINEOPLASTIC CHEMOTHERAP 01/30/2016 JAKE JOSEPH Ot Z79.899 OTHER GROUP HOME (CURRENT) DRUG THERAPY 01/30/2016 JAKE JOSEPH Ot Z92.21 PERSONAL HISTORY OF ANTINEOPLASTIC CHEMO 01/30/2016 JAKE JOSEPH Ot Z92.3 PERSONAL HISTORY OF IRRADIATION 02/14/2016 JAKE JOSEPH N Ot 154.1 MALIGNANT NEOPL RECTUM 02/14/2016 MIRA BARBOZA STATISTICAL METHODS TEACHER Ot 154.1 MALIGNANT NEOPL RECTUM 02/14/2016 MIRA BARBOZA STATISTICAL METHODS TEACHER Ot 356.9 IDIO PERIPH NEURPTHY NOS 02/14/2016 MIRA BARBOZA STATISTICAL METHODS TEACHER Ot V15.3 HX OF IRRADIATION 02/14/2016 MIRA BARBOZA STATISTICAL METHODS TEACHER Ot V44.3 COLOSTOMY STATUS 02/14/2016 MIRA BARBOZA STATISTICAL METHODS TEACHER Ot V58.69 OT MED,LT,CURRENT USE 02/14/2016 MIRA BARBOZA STATISTICAL METHODS TEACHER Ot V87.41 PERSONAL HISTORY OF ANTINEOPLASTIC CHEMO 02/14/2016 JAKE JOSEPH Farooq Ot 724.5 BACKACHE NOS 02/14/2016 MIRA BARBOZA STATISTICAL METHODS TEACHER Ot 154.1 MALIGNANT NEOPL RECTUM 02/14/2016 MIRA BARBOZA STATISTICAL METHODS TEACHER Ot 356.9 IDIO PERIPH NEURPTHY NOS 02/14/2016 MIRA BARBOZA STATISTICAL METHODS TEACHER Ot V15.3 HX OF IRRADIATION 02/14/2016 MIRA BARBOZA STATISTICAL METHODS TEACHER Ot V44.3 COLOSTOMY STATUS 02/14/2016 MIRA BARBOZA S STATISTICAL METHODS TEACHER Ot V58.69 OTH MED,LT,CURRENT USE 02/14/2016 BARBOZAMIRA Khan STATISTICAL METHODS TEACHER Ot V87.41 PERSONAL HISTORY OF ANTINEOPLASTIC CHEMO 02/14/2016 GINGER BARBOZAKUSUM Khan STATISTICAL METHODS TEACHER Ot 154.1 MALIGNANT NEOPL RECTUM 02/14/2016 JABARI MIRA Khan STATISTICAL METHODS TEACHER Ot 784.0 HEADACHE 02/14/2016 JABARI MIRA Khan STATISTICAL METHODS TEACHER Ot 787.01 NAUSEA WITH VOMITING 02/14/2016 GINGER BARBOZAKUSUM Khan STATISTICAL METHODS TEACHER Ot C20 MALIGNANT NEOPLASM OF RECTUM 02/14/2016 JABARI MIRA Khan STATISTICAL METHODS TEACHER Ot I10 ESSENTIAL (PRIMARY) HYPERTENSION 02/14/2016 GINGER BARBOZAKUSUM Khan STATISTICAL METHODS TEACHER Ot Z79.899 OTHER GROUP HOME (CURRENT) DRUG THERAPY 02/14/2016 JABARI MIRA Khan STATISTICAL METHODS TEACHER Ot Z92.21 PERSONAL HISTORY OF ANTINEOPLASTIC CHEMO 02/14/2016 GINGER BARBOZAKUSUM Khan STATISTICAL METHODS TEACHER Ot Z92.3 PERSONAL HISTORY OF IRRADIATION 02/14/2016 MIRA BARBOZA Bill STATISTICAL METHODS TEACHER Ot C20 MALIGNANT NEOPLASM OF RECTUM 02/14/2016 JABARI MIRA Khan STATISTICAL METHODS TEACHER Ot I10 ESSENTIAL (PRIMARY) HYPERTENSION 02/14/2016 JABARI MIRA Khan STATISTICAL METHODS TEACHER Ot Z79.899 OTHER SUPERINTENDENT FISH HATCHERY (CURRENT) DRUG THERAPY 02/14/2016 JABARI MIRA Khan STATISTICAL METHODS TEACHER Ot Z92.21 PERSONAL HISTORY OF ANTINEOPLASTIC CHEMO 02/14/2016 JABARI MIRA Khan STATISTICAL METHODS TEACHER Ot Z92.3 PERSONAL HISTORY OF IRRADIATION 02/14/2016 MIRA BARBOZA Bill STATISTICAL METHODS TEACHER Ot C20 MALIGNANT NEOPLASM OF RECTUM 02/14/2016 MIRA BARBOZA Bill STATISTICAL METHODS TEACHER Ot C20 MALIGNANT NEOPLASM OF RECTUM 02/14/2016 MIRA BARBOZA Bill STATISTICAL METHODS TEACHER Ot R60.9 EDEMA, UNSPECIFIED 02/14/2016 JABARI MIRA S STATISTICAL METHODS TEACHER Ot C20 MALIGNANT NEOPLASM OF RECTUM 02/14/2016 JABARI MIRA Khan STATISTICAL METHODS TEACHER Ot R79.89 OTHER SPECIFIED ABNORMAL FINDINGS OF BLO 02/14/2016 JAKE JOSEPH Ot N13.30 UNSPECIFIED HYDRONEPHROSIS 02/14/2016 MIRA BARBOZA S STATISTICAL METHODS TEACHER Ot C20 MALIGNANT NEOPLASM OF RECTUM 02/14/2016 MIRA BARBOZA S STATISTICAL METHODS TEACHER Ot I10 ESSENTIAL (PRIMARY) HYPERTENSION 02/14/2016 MIRA BARBOZA STATISTICAL METHODS TEACHER Ot Z79.899 OTHER GROUP HOME (CURRENT) DRUG THERAPY 02/14/2016 MIRA BARBOZA STATISTICAL METHODS TEACHER Ot Z92.21 PERSONAL HISTORY OF ANTINEOPLASTIC CHEMO 02/14/2016 BARBOZAMIRA Khan STATISTICAL METHODS TEACHER Ot Z92.3 PERSONAL HISTORY OF IRRADIATION 02/14/2016 LIMA HULL, GIANCARLO Z Ot N36.8 OTHER SPECIFIED DISORDERS OF URETHRA 02/14/2016 MIRA BARBOZA STATISTICAL METHODS TEACHER Ot C20 MALIGNANT NEOPLASM OF RECTUM 02/14/2016 MIRA BARBOZA STATISTICAL METHODS TEACHER Ot I10 ESSENTIAL (PRIMARY) HYPERTENSION 02/14/2016 MIRA BARBOZA STATISTICAL METHODS TEACHER Ot Z79.899 OTHER GROUP HOME (CURRENT) DRUG THERAPY 02/14/2016 MIRA BARBOZA STATISTICAL METHODS TEACHER Ot Z92.21 PERSONAL HISTORY OF ANTINEOPLASTIC CHEMO 02/14/2016 MIRA BARBOZA STATISTICAL METHODS TEACHER Ot Z92.3 PERSONAL HISTORY OF IRRADIATION 02/14/2016 JAKE JOSEPH Ot C20 MALIGNANT NEOPLASM OF RECTUM 02/14/2016 JAKE JOSEPH Ot I10 ESSENTIAL (PRIMARY) HYPERTENSION 02/14/2016 SUSANAJAKE Ot Z79.899 OTHER SUPERINTENDENT FISH HATCHERY (CURRENT) DRUG THERAPY 02/14/2016 SUSANAJAKE Ot Z92.21 PERSONAL HISTORY OF ANTINEOPLASTIC CHEMO 02/14/2016 SUSANAJAKE N Ot Z92.3 PERSONAL HISTORY OF IRRADIATION 02/14/2016 SUSANAKATRANDALL Farooq Ot N13.30 UNSPECIFIED HYDRONEPHROSIS 02/14/2016 SEGUNDO LAMA MD Ot C20 MALIGNANT NEOPLASM OF RECTUM 02/14/2016 SEGUNDO LAMA MD Ot I10 ESSENTIAL (PRIMARY) HYPERTENSION 02/14/2016 SEGUNDO LAMA MD Ot Z51.11 ENCOUNTER FOR ANTINEOPLASTIC CHEMOTHERAP 02/14/2016 SEGUNDO LAMA MD Ot Z79.899 OTHER SUPERINTENDENT FISH HATCHERY (CURRENT) DRUG THERAPY 02/14/2016 SEGUNDO LAMA MD Ot Z92.3 PERSONAL HISTORY OF IRRADIATION 02/14/2016 MIRA BARBOZA STATISTICAL METHODS TEACHER Ot C20 MALIGNANT NEOPLASM OF RECTUM 02/14/2016 MIRA BARBOZA STATISTICAL METHODS TEACHER Ot I10 ESSENTIAL (PRIMARY) HYPERTENSION 02/14/2016 MIRA BARBOZA STATISTICAL METHODS TEACHER Ot Z79.899 OTHER GROUP HOME (CURRENT) DRUG THERAPY 02/14/2016 MIRA BARBOZA STATISTICAL METHODS TEACHER Ot Z92.21 PERSONAL HISTORY OF ANTINEOPLASTIC CHEMO 02/14/2016 MIRA BARBOZA STATISTICAL METHODS TEACHER Ot Z92.3 PERSONAL HISTORY OF IRRADIATION 02/14/2016 MIRA BARBOZA STATISTICAL METHODS TEACHER Ot C20 MALIGNANT NEOPLASM OF RECTUM 02/14/2016 SUSANA JAKE Trivedi Ot N13.30 UNSPECIFIED HYDRONEPHROSIS 02/14/2016 SUSANAJAKE Ot C20 MALIGNANT NEOPLASM OF RECTUM 02/14/2016 SUSANA JAKE Trivedi Ot I10 ESSENTIAL (PRIMARY) HYPERTENSION 02/14/2016 SUSANA JAKE Trivedi Ot Z51.11 ENCOUNTER FOR ANTINEOPLASTIC CHEMOTHERAP 02/14/2016 SUSANA JAKE Trivedi Ot Z79.899 OTHER GROUP HOME (CURRENT) DRUG THERAPY 02/14/2016 SUSANAJAKE Ot Z92.21 PERSONAL HISTORY OF ANTINEOPLASTIC CHEMO 02/14/2016 SUSANA JAKE Trivedi Ot Z92.3 PERSONAL HISTORY OF IRRADIATION 02/14/2016 MIRA BARBOZAP Ot M79.662 PAIN IN LEFT LOWER LEG 02/14/2016 MIRA BARBOZA STATISTICAL METHODS TEACHER Ot R22.42 LOCALIZED SWELLING, MASS AND LUMP, LEFT 02/14/2016 JAKE JOSEPH Ot N13.30 UNSPECIFIED HYDRONEPHROSIS 02/14/2016 SUSANAJAKE Ot N13.30 UNSPECIFIED HYDRONEPHROSIS 02/14/2016 SUSANAJAKE Ot N13.30 UNSPECIFIED HYDRONEPHROSIS 02/14/2016 SUSANAJAKE Ot N13.30 UNSPECIFIED HYDRONEPHROSIS 02/28/2016 JAKE JOSEPH Ot 154.1 MALIGNANT NEOPL RECTUM 02/28/2016 MIRA BARBOZA STATISTICAL METHODS TEACHER Ot 154.1 MALIGNANT NEOPL RECTUM 02/28/2016 MIRA BARBOZA STATISTICAL METHODS TEACHER Ot 356.9 IDIO PERIPH NEURPTHY NOS 02/28/2016 MIRA BARBOZA STATISTICAL METHODS TEACHER Ot V15.3 HX OF IRRADIATION 02/28/2016 MIRA BARBOZA STATISTICAL METHODS TEACHER Ot V44.3 COLOSTOMY STATUS 02/28/2016 MIRA BARBOZA STATISTICAL METHODS TEACHER Ot V58.69 OTH MED,LT,CURRENT USE 02/28/2016 MIRA BARBOZA STATISTICAL METHODS TEACHER Ot V87.41 PERSONAL HISTORY OF ANTINEOPLASTIC CHEMO 02/28/2016 JAKE JOSEPH N Ot 724.5 BACKACHE NOS 02/28/2016 MIRA BARBOZA STATISTICAL METHODS TEACHER Ot 154.1 MALIGNANT NEOPL RECTUM 02/28/2016 MIRA BARBOZA STATISTICAL METHODS TEACHER Ot 356.9 IDIO PERIPH NEURPTHY NOS 02/28/2016 MIRA BARBOZAP Ot V15.3 HX OF IRRADIATION 02/28/2016 MIRA BARBOZA STATISTICAL METHODS TEACHER Ot V44.3 COLOSTOMY STATUS 02/28/2016 MIRA BARBOZA STATISTICAL METHODS TEACHER Ot V58.69 OTH MED,LT,CURRENT USE 02/28/2016 MIRA BARBOZA STATISTICAL METHODS TEACHER Ot V87.41 PERSONAL HISTORY OF ANTINEOPLASTIC CHEMO 02/28/2016 MIRA BARBOZA STATISTICAL METHODS TEACHER Ot 154.1 MALIGNANT NEOPL RECTUM 02/28/2016 MIRA BARBOZAP Ot 784.0 HEADACHE 02/28/2016 MIRA BARBOZAP Ot 787.01 NAUSEA WITH VOMITING 02/28/2016 MIRA BARBOZA STATISTICAL METHODS TEACHER Ot C20 MALIGNANT NEOPLASM OF RECTUM 02/28/2016 MIRA BARBOZAP Ot I10 ESSENTIAL (PRIMARY) HYPERTENSION 02/28/2016 MIRA BARBOZA STATISTICAL METHODS TEACHER Ot Z79.899 OTHER GROUP HOME (CURRENT) DRUG THERAPY 02/28/2016 MIRA BARBOZA STATISTICAL METHODS TEACHER Ot Z92.21 PERSONAL HISTORY OF ANTINEOPLASTIC CHEMO 02/28/2016 MIRA BARBOZA STATISTICAL METHODS TEACHER Ot Z92.3 PERSONAL HISTORY OF IRRADIATION 02/28/2016 MIRA BARBOZA STATISTICAL METHODS TEACHER Ot C20 MALIGNANT NEOPLASM OF RECTUM 02/28/2016 MIRA BARBOZA STATISTICAL METHODS TEACHER Ot I10 ESSENTIAL (PRIMARY) HYPERTENSION 02/28/2016 MIRA BARBOZA STATISTICAL METHODS TEACHER Ot Z79.899 OTHER GROUP HOME (CURRENT) DRUG THERAPY 02/28/2016 MIRA BARBOZA STATISTICAL METHODS TEACHER Ot Z92.21 PERSONAL HISTORY OF ANTINEOPLASTIC CHEMO 02/28/2016 MIRA BARBOZA STATISTICAL METHODS TEACHER Ot Z92.3 PERSONAL HISTORY OF IRRADIATION 02/28/2016 MIRA BARBOZA STATISTICAL METHODS TEACHER Ot C20 MALIGNANT NEOPLASM OF RECTUM 02/28/2016 MIRA BARBOZA STATISTICAL METHODS TEACHER Ot C20 MALIGNANT NEOPLASM OF RECTUM 02/28/2016 MIRA BARBOZA STATISTICAL METHODS TEACHER Ot R60.9 EDEMA, UNSPECIFIED 02/28/2016 MIRA BARBOZA STATISTICAL METHODS TEACHER Ot C20 MALIGNANT NEOPLASM OF RECTUM 02/28/2016 MIRA BARBOZA STATISTICAL METHODS TEACHER Ot R79.89 OTHER SPECIFIED ABNORMAL FINDINGS OF BLO 02/28/2016 JAKE JOSEPH N Ot N13.30 UNSPECIFIED HYDRONEPHROSIS 02/28/2016 MIRA BARBOZA STATISTICAL METHODS TEACHER Ot C20 MALIGNANT NEOPLASM OF RECTUM 02/28/2016 MIRA BARBOZA STATISTICAL METHODS TEACHER Ot I10 ESSENTIAL (PRIMARY) HYPERTENSION 02/28/2016 MIRA BARBOZA STATISTICAL METHODS TEACHER Ot Z79.899 OTHER SUPERINTENDENT FISH HATCHERY (CURRENT) DRUG THERAPY 02/28/2016 MIRA BARBOZA STATISTICAL METHODS TEACHER Ot Z92.21 PERSONAL HISTORY OF ANTINEOPLASTIC CHEMO 02/28/2016 MIRA BARBOZA STATISTICAL METHODS TEACHER Ot Z92.3 PERSONAL HISTORY OF IRRADIATION 02/28/2016 LIMA HULL, GIANCARLO Z Ot N36.8 OTHER SPECIFIED DISORDERS OF URETHRA 02/28/2016 MIRA BARBOZA STATISTICAL METHODS TEACHER Ot C20 MALIGNANT NEOPLASM OF RECTUM 02/28/2016 MIRA BARBOZA STATISTICAL METHODS TEACHER Ot I10 ESSENTIAL (PRIMARY) HYPERTENSION 02/28/2016 MIRA BARBOZA STATISTICAL METHODS TEACHER Ot Z79.899 OTHER GROUP HOME (CURRENT) DRUG THERAPY 02/28/2016 MIRA BARBOZA STATISTICAL METHODS TEACHER Ot Z92.21 PERSONAL HISTORY OF ANTINEOPLASTIC CHEMO 02/28/2016 MIRA BARBOZA STATISTICAL METHODS TEACHER Ot Z92.3 PERSONAL HISTORY OF IRRADIATION 02/28/2016 JAKE JOSEPH N Ot C20 MALIGNANT NEOPLASM OF RECTUM 02/28/2016 JAKE JOSEPH N Ot I10 ESSENTIAL (PRIMARY) HYPERTENSION 02/28/2016 JAKE JOSEPH N Ot Z79.899 OTHER SUPERINTENDENT FISH HATCHERY (CURRENT) DRUG THERAPY 02/28/2016 JAKE JOSEPH N Ot Z92.21 PERSONAL HISTORY OF ANTINEOPLASTIC CHEMO 02/28/2016 SUSANAJAKE DE SOUZA N Ot Z92.3 PERSONAL HISTORY OF IRRADIATION 02/28/2016 SUSANAJAKE DE SOUZA N Ot N13.30 UNSPECIFIED HYDRONEPHROSIS 02/28/2016 KELBY HULL, SEGUNDO Kessler Ot C20 MALIGNANT NEOPLASM OF RECTUM 02/28/2016 KELBY HULL, SEGUNDO Kessler Ot I10 ESSENTIAL (PRIMARY) HYPERTENSION 02/28/2016 KELBY HULL, SEGUNDO Kessler Ot Z51.11 ENCOUNTER FOR ANTINEOPLASTIC CHEMOTHERAP 02/28/2016 KELBY HULL, SEGUNDO [employer] Ot Z79.899 OTHER GROUP HOME (CURRENT) DRUG THERAPY 02/28/2016 KELBY HULL, SEGUNDO [employer] Ot Z92.3 PERSONAL HISTORY OF IRRADIATION 02/28/2016 MIRA BARBOZA STATISTICAL METHODS TEACHER Ot C20 MALIGNANT NEOPLASM OF RECTUM 02/28/2016 BARBOZAGINGERKUSUM S STATISTICAL METHODS TEACHER Ot I10 ESSENTIAL (PRIMARY) HYPERTENSION 02/28/2016 BARBOZAGINGERKUSUM Khan STATISTICAL METHODS TEACHER Ot Z79.899 OTHER GROUP HOME (CURRENT) DRUG THERAPY 02/28/2016 BARBOZA MIRA Khan STATISTICAL METHODS TEACHER Ot Z92.21 PERSONAL HISTORY OF ANTINEOPLASTIC CHEMO 02/28/2016 BARBOZA, HILKUSUM Bill STATISTICAL METHODS TEACHER Ot Z92.3 PERSONAL HISTORY OF IRRADIATION 02/28/2016 GINGER BARBOZAKUSUM Bill STATISTICAL METHODS TEACHER Ot C20 MALIGNANT NEOPLASM OF RECTUM 02/28/2016 JAKE JOSEPH Ot N13.30 UNSPECIFIED HYDRONEPHROSIS 02/28/2016 JAKE JOSEPH N Ot C20 MALIGNANT NEOPLASM OF RECTUM 02/28/2016 JAKE JOSEPH N Ot I10 ESSENTIAL (PRIMARY) HYPERTENSION 02/28/2016 JAKE JOSEPH Ot Z51.11 ENCOUNTER FOR ANTINEOPLASTIC CHEMOTHERAP 02/28/2016 JAKE JOSEPH N Ot Z79.899 OTHER GROUP HOME (CURRENT) DRUG THERAPY 02/28/2016 JAKE JOSEPH N Ot Z92.21 PERSONAL HISTORY OF ANTINEOPLASTIC CHEMO 02/28/2016 JAKE JOSEPH N Ot Z92.3 PERSONAL HISTORY OF IRRADIATION 02/28/2016 GINGER BARBOZAKUSUM Bill STATISTICAL METHODS TEACHER Ot M79.662 PAIN IN LEFT LOWER LEG 02/28/2016 MIRA BARBOZA STATISTICAL METHODS TEACHER Ot R22.42 LOCALIZED SWELLING, MASS AND LUMP, LEFT 02/28/2016 JAKE JOSEPH N Ot N13.30 UNSPECIFIED HYDRONEPHROSIS 02/28/2016 JAKE JOSEPH Ot N13.30 UNSPECIFIED HYDRONEPHROSIS 02/28/2016 JAKE JOSEPH Ot N13.30 UNSPECIFIED HYDRONEPHROSIS 03/04/2016 JAKE JOSEPH N Ot C20 MALIGNANT NEOPLASM OF RECTUM 03/04/2016 JAKE JOSEPH Ot 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 03/04/2016 JAKE JOSEPH Ot D64.9 ANEMIA, UNSPECIFIED 03/04/2016 JAKE JOSEPH Farooq Ot I10 ESSENTIAL (PRIMARY) HYPERTENSION 03/04/2016 JAKE JOSEPH Ot N39.0 URINARY TRACT INFECTION, SITE NOT SPECIF 03/04/2016 JAKE JOSEPH Farooq Ot T85.9XXA UNSP COMPLICATION OF INTERNAL PROSTH DEV 03/04/2016 JAKE JOSEPH Farooq Ot Z51.11 ENCOUNTER FOR ANTINEOPLASTIC CHEMOTHERAP 03/04/2016 JAKE JOSEPH Farooq Ot Z79.899 OTHER GROUP HOME (CURRENT) DRUG THERAPY 03/04/2016 JAKE JOSEPH Farooq Ot Z92.21 PERSONAL HISTORY OF ANTINEOPLASTIC CHEMO 03/04/2016 JAKE JOSEPH N Ot Z92.3 PERSONAL HISTORY OF IRRADIATION 03/04/2016 SUSANA KATRANDALL Farooq Ot 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 03/05/2016 SUSANA KATRANDALL Farooq Ot C20 MALIGNANT NEOPLASM OF RECTUM 03/05/2016 JAKE JOSEPH Farooq Ot 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 03/05/2016 JAKE JOSEPH Farooq Ot D64.9 ANEMIA, UNSPECIFIED 03/05/2016 JAKE JOSEPH N Ot I10 ESSENTIAL (PRIMARY) HYPERTENSION 03/05/2016 JAKE JOSEPH Farooq Ot N39.0 URINARY TRACT INFECTION, SITE NOT SPECIF 03/05/2016 JAKE JOSEPH Farooq Ot T85.9XXA UNSP COMPLICATION OF INTERNAL PROSTH DEV 03/05/2016 JAKE JOSEPH Farooq Ot Z51.11 ENCOUNTER FOR ANTINEOPLASTIC CHEMOTHERAP 03/05/2016 JAKE JOSEPH Farooq Ot Z79.899 OTHER GROUP HOME (CURRENT) DRUG THERAPY 03/05/2016 SUSANA KATRANDALL Farooq Ot Z92.3 PERSONAL HISTORY OF IRRADIATION 03/05/2016 SUSANA KATRANDALL Farooq Ot 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 03/06/2016 SUSAAN KATRANDALL Farooq Ot N13.30 UNSPECIFIED HYDRONEPHROSIS 03/06/2016 MIRA BARBOZA STATISTICAL METHODS TEACHER Ot C20 MALIGNANT NEOPLASM OF RECTUM 03/07/2016 SUSANA JAKE Trivedi Ot 154.1 MALIGNANT NEOPL RECTUM 03/07/2016 MIRA BARBOZA STATISTICAL METHODS TEACHER Ot 154.1 MALIGNANT NEOPL RECTUM 03/07/2016 MIRA BARBOZA STATISTICAL METHODS TEACHER Ot 356.9 IDIO PERIPH NEURPTHY NOS 03/07/2016 MIRA BARBOZA STATISTICAL METHODS TEACHER Ot V15.3 HX OF IRRADIATION 03/07/2016 MIRA BARBOZA STATISTICAL METHODS TEACHER Ot V44.3 COLOSTOMY STATUS 03/07/2016 JABARI MIRA Khan STATISTICAL METHODS TEACHER Ot V58.69 OTH MED,LT,CURRENT USE 03/07/2016 MIRA BARBOZA STATISTICAL METHODS TEACHER Ot V87.41 PERSONAL HISTORY OF ANTINEOPLASTIC CHEMO 03/07/2016 JAKE JOSEPH N Ot 724.5 BACKACHE NOS 03/07/2016 MIRA BARBOZA STATISTICAL METHODS TEACHER Ot 154.1 MALIGNANT NEOPL RECTUM 03/07/2016 MIRA BARBOZA STATISTICAL METHODS TEACHER Ot 356.9 IDIO PERIPH NEURPTHY NOS 03/07/2016 MIRA BARBOZAP Ot V15.3 HX OF IRRADIATION 03/07/2016 MIRA BARBOZA STATISTICAL METHODS TEACHER Ot V44.3 COLOSTOMY STATUS 03/07/2016 MIRA BARBOZAP Ot V58.69 OTH MED,LT,CURRENT USE 03/07/2016 MIRA BARBOZA STATISTICAL METHODS TEACHER Ot V87.41 PERSONAL HISTORY OF ANTINEOPLASTIC CHEMO 03/07/2016 MIRA BARBOZA STATISTICAL METHODS TEACHER Ot 154.1 MALIGNANT NEOPL RECTUM 03/07/2016 MIRA BARBOZA STATISTICAL METHODS TEACHER Ot 784.0 HEADACHE 03/07/2016 MIRA BARBOZA STATISTICAL METHODS TEACHER Ot 787.01 NAUSEA WITH VOMITING 03/07/2016 MIRA BARBOZA STATISTICAL METHODS TEACHER Ot C20 MALIGNANT NEOPLASM OF RECTUM 03/07/2016 MIRA BARBOZA STATISTICAL METHODS TEACHER Ot I10 ESSENTIAL (PRIMARY) HYPERTENSION 03/07/2016 MIRA BARBOZA STATISTICAL METHODS TEACHER Ot Z79.899 OTHER SUPERINTENDENT FISH HATCHERY (CURRENT) DRUG THERAPY 03/07/2016 MIRA BARBOZA STATISTICAL METHODS TEACHER Ot Z92.21 PERSONAL HISTORY OF ANTINEOPLASTIC CHEMO 03/07/2016 MIRA BARBOZA STATISTICAL METHODS TEACHER Ot Z92.3 PERSONAL HISTORY OF IRRADIATION 03/07/2016 MIRA BARBOZA STATISTICAL METHODS TEACHER Ot C20 MALIGNANT NEOPLASM OF RECTUM 03/07/2016 MIRA BARBOZA STATISTICAL METHODS TEACHER Ot I10 ESSENTIAL (PRIMARY) HYPERTENSION 03/07/2016 MIRA BARBOZA STATISTICAL METHODS TEACHER Ot Z79.899 OTHER GROUP HOME (CURRENT) DRUG THERAPY 03/07/2016 MIRA BARBOZA STATISTICAL METHODS TEACHER Ot Z92.21 PERSONAL HISTORY OF ANTINEOPLASTIC CHEMO 03/07/2016 GINGER BARBOZAKUSUM Khan STATISTICAL METHODS TEACHER Ot Z92.3 PERSONAL HISTORY OF IRRADIATION 03/07/2016 MIRA BARBOZA STATISTICAL METHODS TEACHER Ot C20 MALIGNANT NEOPLASM OF RECTUM 03/07/2016 GINGER BARBOZAKUSUM Khan STATISTICAL METHODS TEACHER Ot C20 MALIGNANT NEOPLASM OF RECTUM 03/07/2016 MIRA BARBOZA STATISTICAL METHODS TEACHER Ot R60.9 EDEMA, UNSPECIFIED 03/07/2016 MIRA BARBOZA STATISTICAL METHODS TEACHER Ot C20 MALIGNANT NEOPLASM OF RECTUM 03/07/2016 GINGER BARBOZAKUSUM Khan STATISTICAL METHODS TEACHER Ot R79.89 OTHER SPECIFIED ABNORMAL FINDINGS OF BLO 03/07/2016 JAKE JOSEPH Ot N13.30 UNSPECIFIED HYDRONEPHROSIS 03/07/2016 MIRA BARBOZA STATISTICAL METHODS TEACHER Ot C20 MALIGNANT NEOPLASM OF RECTUM 03/07/2016 MIRA BARBOZA STATISTICAL METHODS TEACHER Ot I10 ESSENTIAL (PRIMARY) HYPERTENSION 03/07/2016 MIRA BARBOZA STATISTICAL METHODS TEACHER Ot Z79.899 OTHER GROUP HOME (CURRENT) DRUG THERAPY 03/07/2016 MIRA BARBOZA STATISTICAL METHODS TEACHER Ot Z92.21 PERSONAL HISTORY OF ANTINEOPLASTIC CHEMO 03/07/2016 MIRA BARBOZA STATISTICAL METHODS TEACHER Ot Z92.3 PERSONAL HISTORY OF IRRADIATION 03/07/2016 LIMA HULL, GIANCARLO Z Ot N36.8 OTHER SPECIFIED DISORDERS OF URETHRA 03/07/2016 MIRA BARBOZA STATISTICAL METHODS TEACHER Ot C20 MALIGNANT NEOPLASM OF RECTUM 03/07/2016 MIRA BARBOZA STATISTICAL METHODS TEACHER Ot I10 ESSENTIAL (PRIMARY) HYPERTENSION 03/07/2016 MIRA BARBOZA STATISTICAL METHODS TEACHER Ot Z79.899 OTHER SUPERINTENDENT FISH HATCHERY (CURRENT) DRUG THERAPY 03/07/2016 MIRA BARBOZA STATISTICAL METHODS TEACHER Ot Z92.21 PERSONAL HISTORY OF ANTINEOPLASTIC CHEMO 03/07/2016 GINGER BARBOZAKUSUM Bill STATISTICAL METHODS TEACHER Ot Z92.3 PERSONAL HISTORY OF IRRADIATION 03/07/2016 JAKE JOSEPH Ot C20 MALIGNANT NEOPLASM OF RECTUM 03/07/2016 JAKE JOSEPH Ot I10 ESSENTIAL (PRIMARY) HYPERTENSION 03/07/2016 JAKE JOSEPH Ot Z79.899 OTHER GROUP HOME (CURRENT) DRUG THERAPY 03/07/2016 JAKE JOSEPH Ot Z92.21 PERSONAL HISTORY OF ANTINEOPLASTIC CHEMO 03/07/2016 JAKE JOSEPH Ot Z92.3 PERSONAL HISTORY OF IRRADIATION 03/07/2016 JAKE JOSEPH Ot N13.30 UNSPECIFIED HYDRONEPHROSIS 03/07/2016 SEGUNDO LAMA MD Ot C20 MALIGNANT NEOPLASM OF RECTUM 03/07/2016 SEGUNDO LAMA MD Ot I10 ESSENTIAL (PRIMARY) HYPERTENSION 03/07/2016 SEGUNDO LAMA MD Ot Z51.11 ENCOUNTER FOR ANTINEOPLASTIC CHEMOTHERAP 03/07/2016 SEGUNDO LAMA MD Ot Z79.899 OTHER GROUP HOME (CURRENT) DRUG THERAPY 03/07/2016 SEGUNDO LAMA MD Ot Z92.3 PERSONAL HISTORY OF IRRADIATION 03/07/2016 MIRA BARBOZA STATISTICAL METHODS TEACHER Ot C20 MALIGNANT NEOPLASM OF RECTUM 03/07/2016 MIRA BARBOZA STATISTICAL METHODS TEACHER Ot I10 ESSENTIAL (PRIMARY) HYPERTENSION 03/07/2016 MIRA BARBOZA STATISTICAL METHODS TEACHER Ot Z79.899 OTHER GROUP HOME (CURRENT) DRUG THERAPY 03/07/2016 MIRA BARBOZA STATISTICAL METHODS TEACHER Ot Z92.21 PERSONAL HISTORY OF ANTINEOPLASTIC CHEMO 03/07/2016 MIRA BARBOZA STATISTICAL METHODS TEACHER Ot Z92.3 PERSONAL HISTORY OF IRRADIATION 03/07/2016 MIRA BARBOZA STATISTICAL METHODS TEACHER Ot C20 MALIGNANT NEOPLASM OF RECTUM 03/07/2016 JAKE JOSEPH Ot N13.30 UNSPECIFIED HYDRONEPHROSIS 03/07/2016 MIRA BARBOZA STATISTICAL METHODS TEACHER Ot M79.662 PAIN IN LEFT LOWER LEG 03/07/2016 MIRA BARBOZA STATISTICAL METHODS TEACHER Ot R22.42 LOCALIZED SWELLING, MASS AND LUMP, LEFT 03/07/2016 JAKE JOSEPH Ot N13.30 UNSPECIFIED HYDRONEPHROSIS 03/07/2016 JAKE JOSEPH Ot N13.30 UNSPECIFIED HYDRONEPHROSIS 03/07/2016 JAKE JOSEPH Ot N13.30 UNSPECIFIED HYDRONEPHROSIS 03/07/2016 MIRA BARBOZA STATISTICAL METHODS TEACHER Ot C20 MALIGNANT NEOPLASM OF RECTUM 03/07/2016 JAKE JOSEPH N Ot C20 MALIGNANT NEOPLASM OF RECTUM 03/07/2016 JAKE JOSEPH Ot I10 ESSENTIAL (PRIMARY) HYPERTENSION 03/07/2016 JAKE JOSEPH Ot Z51.11 ENCOUNTER FOR ANTINEOPLASTIC CHEMOTHERAP 03/07/2016 JAKE JOSEPH Ot Z79.899 OTHER SUPERINTENDENT FISH HATCHERY (CURRENT) DRUG THERAPY 03/07/2016 JAKE JOSEPH N Ot Z92.21 PERSONAL HISTORY OF ANTINEOPLASTIC CHEMO 03/07/2016 JAKE JOSEPH N Ot Z92.3 PERSONAL HISTORY OF IRRADIATION 03/11/2016 MIRA BARBOZA STATISTICAL METHODS TEACHER Ot C20 MALIGNANT NEOPLASM OF RECTUM 03/12/2016 JAKE JOSEPH Farooq Ot N13.30 UNSPECIFIED HYDRONEPHROSIS 03/12/2016 JAKE JOSEPH Farooq Ot N13.30 UNSPECIFIED HYDRONEPHROSIS 03/19/2016 JAKE JOSEPH N Ot C20 MALIGNANT NEOPLASM OF RECTUM 03/19/2016 JAKE JOSEPH N Ot I10 ESSENTIAL (PRIMARY) HYPERTENSION 03/19/2016 JAKE JOSEPH N Ot Z79.899 OTHER SUPERINTENDENT FISH HATCHERY (CURRENT) DRUG THERAPY 03/19/2016 JAKE JOSEPH N Ot Z92.21 PERSONAL HISTORY OF ANTINEOPLASTIC CHEMO 03/19/2016 JAKE JOSEPH N Ot Z92.3 PERSONAL HISTORY OF IRRADIATION 03/20/2016 JAKE JOSEPH N Ot C20 MALIGNANT NEOPLASM OF RECTUM 03/20/2016 JAKE JOSEPH Farooq Ot I10 ESSENTIAL (PRIMARY) HYPERTENSION 03/20/2016 JAKE JOSEPH N Ot Z79.899 OTHER SUPERINTENDENT FISH HATCHERY (CURRENT) DRUG THERAPY 03/20/2016 JAKE JOSEPH N Ot Z92.21 PERSONAL HISTORY OF ANTINEOPLASTIC CHEMO 03/20/2016 JAKE JOSEPH N Ot Z92.3 PERSONAL HISTORY OF IRRADIATION 04/09/2016 SUSANA JAKE N Ot 154.1 MALIGNANT NEOPL RECTUM 04/09/2016 MIRA BARBOZA STATISTICAL METHODS TEACHER Ot 154.1 MALIGNANT NEOPL RECTUM 04/09/2016 MIRA BARBOZA STATISTICAL METHODS TEACHER Ot 356.9 IDIO PERIPH NEURPTHY NOS 04/09/2016 MIRA BARBOZA STATISTICAL METHODS TEACHER Ot V15.3 HX OF IRRADIATION 04/09/2016 MIRA BARBOZA STATISTICAL METHODS TEACHER Ot V44.3 COLOSTOMY STATUS 04/09/2016 MIRA BARBOZA STATISTICAL METHODS TEACHER Ot V58.69 OTH MED,LT,CURRENT USE 04/09/2016 MIRA BARBOZA STATISTICAL METHODS TEACHER Ot V87.41 PERSONAL HISTORY OF ANTINEOPLASTIC CHEMO 04/09/2016 SUSANA JAKE N Ot 724.5 BACKACHE NOS 04/09/2016 MIRA BARBOZA STATISTICAL METHODS TEACHER Ot 154.1 MALIGNANT NEOPL RECTUM 04/09/2016 MIRA BARBOZA STATISTICAL METHODS TEACHER Ot 356.9 IDIO PERIPH NEURPTHY NOS 04/09/2016 MIRA BARBOZA STATISTICAL METHODS TEACHER Ot V15.3 HX OF IRRADIATION 04/09/2016 MIRA BARBOZA STATISTICAL METHODS TEACHER Ot V44.3 COLOSTOMY STATUS 04/09/2016 MIRA BARBOZA STATISTICAL METHODS TEACHER Ot V58.69 OT MED,LT,CURRENT USE 04/09/2016 MIRA BARBOZA STATISTICAL METHODS TEACHER Ot V87.41 PERSONAL HISTORY OF ANTINEOPLASTIC CHEMO 04/09/2016 MIRA BARBOZA STATISTICAL METHODS TEACHER Ot 154.1 MALIGNANT NEOPL RECTUM 04/09/2016 MIRA BARBOZAP Ot 784.0 HEADACHE 04/09/2016 MIRA BARBOZA STATISTICAL METHODS TEACHER Ot 787.01 NAUSEA WITH VOMITING 04/09/2016 MIRA BARBOZA STATISTICAL METHODS TEACHER Ot C20 MALIGNANT NEOPLASM OF RECTUM 04/09/2016 MIRA BARBOZA STATISTICAL METHODS TEACHER Ot I10 ESSENTIAL (PRIMARY) HYPERTENSION 04/09/2016 MIRA BARBOZA STATISTICAL METHODS TEACHER Ot Z79.899 OTHER SUPERINTENDENT FISH HATCHERY (CURRENT) DRUG THERAPY 04/09/2016 MIRA BARBOZA STATISTICAL METHODS TEACHER Ot Z92.21 PERSONAL HISTORY OF ANTINEOPLASTIC CHEMO 04/09/2016 MIRA BARBOZA STATISTICAL METHODS TEACHER Ot Z92.3 PERSONAL HISTORY OF IRRADIATION 04/09/2016 MIRA BARBOZA STATISTICAL METHODS TEACHER Ot C20 MALIGNANT NEOPLASM OF RECTUM 04/09/2016 MIRA BARBOZA STATISTICAL METHODS TEACHER Ot I10 ESSENTIAL (PRIMARY) HYPERTENSION 04/09/2016 MIRA BARBOZA STATISTICAL METHODS TEACHER Ot Z79.899 OTHER SUPERINTENDENT FISH HATCHERY (CURRENT) DRUG THERAPY 04/09/2016 MIRA BARBOZA STATISTICAL METHODS TEACHER Ot Z92.21 PERSONAL HISTORY OF ANTINEOPLASTIC CHEMO 04/09/2016 MIRA BARBOZA STATISTICAL METHODS TEACHER Ot Z92.3 PERSONAL HISTORY OF IRRADIATION 04/09/2016 MIRA BARBOZA STATISTICAL METHODS TEACHER Ot C20 MALIGNANT NEOPLASM OF RECTUM 04/09/2016 MIRA BARBOZA STATISTICAL METHODS TEACHER Ot C20 MALIGNANT NEOPLASM OF RECTUM 04/09/2016 MIRA BARBOZAP Ot R60.9 EDEMA, UNSPECIFIED 04/09/2016 BARBOZA, HILAH S STATISTICAL METHODS TEACHER Ot C20 MALIGNANT NEOPLASM OF RECTUM 04/09/2016 MIRA BARBOZA STATISTICAL METHODS TEACHER Ot R79.89 OTHER SPECIFIED ABNORMAL FINDINGS OF BLO 04/09/2016 JAKE JOSEPH N Ot N13.30 UNSPECIFIED HYDRONEPHROSIS 04/09/2016 MRIA BARBOZA STATISTICAL METHODS TEACHER Ot C20 MALIGNANT NEOPLASM OF RECTUM 04/09/2016 MIRA BARBOZA S STATISTICAL METHODS TEACHER Ot I10 ESSENTIAL (PRIMARY) HYPERTENSION 04/09/2016 GINGER BARBOZAKUSUM S STATISTICAL METHODS TEACHER Ot Z79.899 OTHER SUPERINTENDENT FISH HATCHERY (CURRENT) DRUG THERAPY 04/09/2016 BARBOZA, MIRA S STATISTICAL METHODS TEACHER Ot Z92.21 PERSONAL HISTORY OF ANTINEOPLASTIC CHEMO 04/09/2016 BARBOZAMIRA Khan S STATISTICAL METHODS TEACHER Ot Z92.3 PERSONAL HISTORY OF IRRADIATION 04/09/2016 LIMA HULL, GIANCARLO Jacobo Ot N36.8 OTHER SPECIFIED DISORDERS OF URETHRA 04/09/2016 MIRA BARBOZA STATISTICAL METHODS TEACHER Ot C20 MALIGNANT NEOPLASM OF RECTUM 04/09/2016 MIRA BARBOZA STATISTICAL METHODS TEACHER Ot I10 ESSENTIAL (PRIMARY) HYPERTENSION 04/09/2016 BARBOZAMIRA Khan S STATISTICAL METHODS TEACHER Ot Z79.899 OTHER SUPERINTENDENT FISH HATCHERY (CURRENT) DRUG THERAPY 04/09/2016 BARBOZA, HILKUSUM S STATISTICAL METHODS TEACHER Ot Z92.21 PERSONAL HISTORY OF ANTINEOPLASTIC CHEMO 04/09/2016 MIRA BARBOZA S STATISTICAL METHODS TEACHER Ot Z92.3 PERSONAL HISTORY OF IRRADIATION 04/09/2016 JAKE JOSEPH Ot N13.30 UNSPECIFIED HYDRONEPHROSIS 04/09/2016 SEGUNDO LAMA MD Ot C20 MALIGNANT NEOPLASM OF RECTUM 04/09/2016 SEGUNDO LAMA MD Ot I10 ESSENTIAL (PRIMARY) HYPERTENSION 04/09/2016 SEGUNDO LAMA MD Ot Z51.11 ENCOUNTER FOR ANTINEOPLASTIC CHEMOTHERAP 04/09/2016 SEGUNDO LAMA MD Ot Z79.899 OTHER GROUP HOME (CURRENT) DRUG THERAPY 04/09/2016 SEGUNDO LAMA MD Ot Z92.3 PERSONAL HISTORY OF IRRADIATION 04/09/2016 MIRA BARBOZA S STATISTICAL METHODS TEACHER Ot C20 MALIGNANT NEOPLASM OF RECTUM 04/09/2016 MIRA BARBOZA S STATISTICAL METHODS TEACHER Ot I10 ESSENTIAL (PRIMARY) HYPERTENSION 04/09/2016 BARBOZAMIRA Khan S STATISTICAL METHODS TEACHER Ot Z79.899 OTHER SUPERINTENDENT FISH HATCHERY (CURRENT) DRUG THERAPY 04/09/2016 MIRA BARBOZA S STATISTICAL METHODS TEACHER Ot Z92.21 PERSONAL HISTORY OF ANTINEOPLASTIC CHEMO 04/09/2016 MIRA BARBOZA STATISTICAL METHODS TEACHER Ot Z92.3 PERSONAL HISTORY OF IRRADIATION 04/09/2016 MIRA BARBOZA STATISTICAL METHODS TEACHER Ot C20 MALIGNANT NEOPLASM OF RECTUM 04/09/2016 JAKE JOSEPH N Ot N13.30 UNSPECIFIED HYDRONEPHROSIS 04/09/2016 MIRA BARBOZA STATISTICAL METHODS TEACHER Ot M79.662 PAIN IN LEFT LOWER LEG 04/09/2016 MIRA BARBOZA STATISTICAL METHODS TEACHER Ot R22.42 LOCALIZED SWELLING, MASS AND LUMP, LEFT 04/09/2016 JAKE JOSEPH N Ot N13.30 UNSPECIFIED HYDRONEPHROSIS 04/09/2016 SUSANA JAKE Trivedi Ot N13.30 UNSPECIFIED HYDRONEPHROSIS 04/09/2016 SUSANA JAKE N Ot N13.30 UNSPECIFIED HYDRONEPHROSIS 04/09/2016 MIRA BARBOZA STATISTICAL METHODS TEACHER Ot C20 MALIGNANT NEOPLASM OF RECTUM 04/09/2016 SUSANA KATRANDALL Farooq Ot C20 MALIGNANT NEOPLASM OF RECTUM 04/09/2016 SUSANA KATRANDALL Farooq Ot I10 ESSENTIAL (PRIMARY) HYPERTENSION 04/09/2016 JAKE JOSEPH Farooq Ot Z51.11 ENCOUNTER FOR ANTINEOPLASTIC CHEMOTHERAP 04/09/2016 SUSANAJAKE Ot Z79.899 OTHER SUPERINTENDENT FISH HATCHERY (CURRENT) DRUG THERAPY 04/09/2016 JAKE JOSEPH N Ot Z92.21 PERSONAL HISTORY OF ANTINEOPLASTIC CHEMO 04/09/2016 SUSANA KATRANDALL N Ot Z92.3 PERSONAL HISTORY OF IRRADIATION 04/09/2016 SUSANAJAKE N Ot C20 MALIGNANT NEOPLASM OF RECTUM 04/09/2016 SUSANA JAKE Trivedi Ot I10 ESSENTIAL (PRIMARY) HYPERTENSION 04/09/2016 SUSANAJAKE N Ot Z79.899 OTHER SUPERINTENDENT FISH HATCHERY (CURRENT) DRUG THERAPY 04/09/2016 SUSANA JAKE N Ot Z92.21 PERSONAL HISTORY OF ANTINEOPLASTIC CHEMO 04/09/2016 SUSANAJAKE N Ot Z92.3 PERSONAL HISTORY OF IRRADIATION 04/09/2016 SUSANAJAKE N Ot 154.1 MALIGNANT NEOPL RECTUM 04/09/2016 MIRA BARBOZA STATISTICAL METHODS TEACHER Ot 154.1 MALIGNANT NEOPL RECTUM 04/09/2016 MIRA BARBOZA STATISTICAL METHODS TEACHER Ot 356.9 IDIO PERIPH NEURPTHY NOS 04/09/2016 MIRA BARBOZA Bill STATISTICAL METHODS TEACHER Ot V15.3 HX OF IRRADIATION 04/09/2016 MIRA BARBOZA STATISTICAL METHODS TEACHER Ot V44.3 COLOSTOMY STATUS 04/09/2016 MIRA BARBOZA STATISTICAL METHODS TEACHER Ot V58.69 OTH MED,LT,CURRENT USE 04/09/2016 MIRA BABROZA STATISTICAL METHODS TEACHER Ot V87.41 PERSONAL HISTORY OF ANTINEOPLASTIC CHEMO 04/09/2016 JAKE JOSEPH Farooq Ot 724.5 BACKACHE NOS 04/09/2016 MIRA BARBOZA STATISTICAL METHODS TEACHER Ot 154.1 MALIGNANT NEOPL RECTUM 04/09/2016 MIRA BARBOZA STATISTICAL METHODS TEACHER Ot 356.9 IDIO PERIPH NEURPTHY NOS 04/09/2016 MIRA BARBOZA STATISTICAL METHODS TEACHER Ot V15.3 HX OF IRRADIATION 04/09/2016 MIRA BARBOZA STATISTICAL METHODS TEACHER Ot V44.3 COLOSTOMY STATUS 04/09/2016 MIRA BARBOZAP Ot V58.69 OTH MED,LT,CURRENT USE 04/09/2016 MIRA BARBOZA STATISTICAL METHODS TEACHER Ot V87.41 PERSONAL HISTORY OF ANTINEOPLASTIC CHEMO 04/09/2016 IMRA BARBOZA STATISTICAL METHODS TEACHER Ot 154.1 MALIGNANT NEOPL RECTUM 04/09/2016 MIRA BARBOZA STATISTICAL METHODS TEACHER Ot 784.0 HEADACHE 04/09/2016 MIRA BARBOZA STATISTICAL METHODS TEACHER Ot 787.01 NAUSEA WITH VOMITING 04/09/2016 MIRA BARBOZA STATISTICAL METHODS TEACHER Ot C20 MALIGNANT NEOPLASM OF RECTUM 04/09/2016 MIRA BARBOZA STATISTICAL METHODS TEACHER Ot I10 ESSENTIAL (PRIMARY) HYPERTENSION 04/09/2016 MIRA BARBOZA STATISTICAL METHODS TEACHER Ot Z79.899 OTHER SUPERINTENDENT FISH HATCHERY (CURRENT) DRUG THERAPY 04/09/2016 MIRA BARBOZA STATISTICAL METHODS TEACHER Ot Z92.21 PERSONAL HISTORY OF ANTINEOPLASTIC CHEMO 04/09/2016 MIRA BARBOZA STATISTICAL METHODS TEACHER Ot Z92.3 PERSONAL HISTORY OF IRRADIATION 04/09/2016 MIRA BARBOZA STATISTICAL METHODS TEACHER Ot C20 MALIGNANT NEOPLASM OF RECTUM 04/09/2016 MIRA BARBOZA STATISTICAL METHODS TEACHER Ot I10 ESSENTIAL (PRIMARY) HYPERTENSION 04/09/2016 MIRA BARBOZA STATISTICAL METHODS TEACHER Ot Z79.899 OTHER SUPERINTENDENT FISH HATCHERY (CURRENT) DRUG THERAPY 04/09/2016 MIRA BARBOZA STATISTICAL METHODS TEACHER Ot Z92.21 PERSONAL HISTORY OF ANTINEOPLASTIC CHEMO 04/09/2016 MIRA BARBOZA STATISTICAL METHODS TEACHER Ot Z92.3 PERSONAL HISTORY OF IRRADIATION 04/09/2016 MIRA BARBOZA S STATISTICAL METHODS TEACHER Ot C20 MALIGNANT NEOPLASM OF RECTUM 04/09/2016 MIRA BARBOZA STATISTICAL METHODS TEACHER Ot C20 MALIGNANT NEOPLASM OF RECTUM 04/09/2016 MIRA BARBOZA STATISTICAL METHODS TEACHER Ot R60.9 EDEMA, UNSPECIFIED 04/09/2016 MIRA BARBOZA S STATISTICAL METHODS TEACHER Ot C20 MALIGNANT NEOPLASM OF RECTUM 04/09/2016 MIRA BARBOZA STATISTICAL METHODS TEACHER Ot R79.89 OTHER SPECIFIED ABNORMAL FINDINGS OF BLO 04/09/2016 JAKE JOSEPH Ot N13.30 UNSPECIFIED HYDRONEPHROSIS 04/09/2016 MIRA BARBOZA STATISTICAL METHODS TEACHER Ot C20 MALIGNANT NEOPLASM OF RECTUM 04/09/2016 MIRA BARBOZA STATISTICAL METHODS TEACHER Ot I10 ESSENTIAL (PRIMARY) HYPERTENSION 04/09/2016 MIRA BARBOZA STATISTICAL METHODS TEACHER Ot Z79.899 OTHER SUPERINTENDENT FISH HATCHERY (CURRENT) DRUG THERAPY 04/09/2016 MIRA BARBOZA STATISTICAL METHODS TEACHER Ot Z92.21 PERSONAL HISTORY OF ANTINEOPLASTIC CHEMO 04/09/2016 MIRA BARBOZA STATISTICAL METHODS TEACHER Ot Z92.3 PERSONAL HISTORY OF IRRADIATION 04/09/2016 LIMA HULL, GIANCARLO Z Ot N36.8 OTHER SPECIFIED DISORDERS OF URETHRA 04/09/2016 MIRA BARBOZA STATISTICAL METHODS TEACHER Ot C20 MALIGNANT NEOPLASM OF RECTUM 04/09/2016 MIRA BARBOZA STATISTICAL METHODS TEACHER Ot I10 ESSENTIAL (PRIMARY) HYPERTENSION 04/09/2016 MIRA BARBOZA STATISTICAL METHODS TEACHER Ot Z79.899 OTHER SUPERINTENDENT FISH HATCHERY (CURRENT) DRUG THERAPY 04/09/2016 MIRA BARBOZA STATISTICAL METHODS TEACHER Ot Z92.21 PERSONAL HISTORY OF ANTINEOPLASTIC CHEMO 04/09/2016 MIRA BARBOZA S STATISTICAL METHODS TEACHER Ot Z92.3 PERSONAL HISTORY OF IRRADIATION 04/09/2016 JAKE JOSEPH Ot N13.30 UNSPECIFIED HYDRONEPHROSIS 04/09/2016 SEGUNDO LAMA MD Ot C20 MALIGNANT NEOPLASM OF RECTUM 04/09/2016 KELBY HULL, SEGUNDO Kessler Ot I10 ESSENTIAL (PRIMARY) HYPERTENSION 04/09/2016 SEGUNDO LAMA MD Ot Z51.11 ENCOUNTER FOR ANTINEOPLASTIC CHEMOTHERAP 04/09/2016 SEGUNDO LAMA MD Ot Z79.899 OTHER GROUP HOME (CURRENT) DRUG THERAPY 04/09/2016 SEGUNDO LAMA MD Ot Z92.3 PERSONAL HISTORY OF IRRADIATION 04/09/2016 MIRA BARBOZA STATISTICAL METHODS TEACHER Ot C20 MALIGNANT NEOPLASM OF RECTUM 04/09/2016 MIRA BARBOZA STATISTICAL METHODS TEACHER Ot I10 ESSENTIAL (PRIMARY) HYPERTENSION 04/09/2016 BARBOZA MIRA Khan STATISTICAL METHODS TEACHER Ot Z79.899 OTHER SUPERINTENDENT FISH HATCHERY (CURRENT) DRUG THERAPY 04/09/2016 BARBOZA MIRA Khan STATISTICAL METHODS TEACHER Ot Z92.21 PERSONAL HISTORY OF ANTINEOPLASTIC CHEMO 04/09/2016 BARBOZA MIRA Khan STATISTICAL METHODS TEACHER Ot Z92.3 PERSONAL HISTORY OF IRRADIATION 04/09/2016 GINGER BARBOZAKUSUM Khan STATISTICAL METHODS TEACHER Ot C20 MALIGNANT NEOPLASM OF RECTUM 04/09/2016 JAKE JOSEPH Ot N13.30 UNSPECIFIED HYDRONEPHROSIS 04/09/2016 JABARI MIRA Khan STATISTICAL METHODS TEACHER Ot M79.662 PAIN IN LEFT LOWER LEG 04/09/2016 BARBOZA MIRA Khan STATISTICAL METHODS TEACHER Ot R22.42 LOCALIZED SWELLING, MASS AND LUMP, LEFT 04/09/2016 JAKE JOSEPH Ot N13.30 UNSPECIFIED HYDRONEPHROSIS 04/09/2016 JAKE JOSEPH Ot N13.30 UNSPECIFIED HYDRONEPHROSIS 04/09/2016 JAKE JOSEPH Ot N13.30 UNSPECIFIED HYDRONEPHROSIS 04/09/2016 GINGER BARBOZAKUSUM S STATISTICAL METHODS TEACHER Ot C20 MALIGNANT NEOPLASM OF RECTUM 04/09/2016 JAKE JOSEPH Ot C20 MALIGNANT NEOPLASM OF RECTUM 04/09/2016 JAKE JOSEPH Ot I10 ESSENTIAL (PRIMARY) HYPERTENSION 04/09/2016 JAKE JOSEPH Ot Z51.11 ENCOUNTER FOR ANTINEOPLASTIC CHEMOTHERAP 04/09/2016 JAKE JOSEPH Ot Z79.899 OTHER SUPERINTENDENT FISH HATCHERY (CURRENT) DRUG THERAPY 04/09/2016 JAKE JOSEPH Ot Z92.21 PERSONAL HISTORY OF ANTINEOPLASTIC CHEMO 04/09/2016 JAKE JOSEPH N Ot Z92.3 PERSONAL HISTORY OF IRRADIATION 04/09/2016 JAKE JOSEPH N Ot C20 MALIGNANT NEOPLASM OF RECTUM 04/09/2016 JAKE JOSEPH Ot I10 ESSENTIAL (PRIMARY) HYPERTENSION 04/09/2016 JAKE JOSEPH Ot Z79.899 OTHER GROUP HOME (CURRENT) DRUG THERAPY 04/09/2016 JAKE JOSEPH N Ot Z92.21 PERSONAL HISTORY OF ANTINEOPLASTIC CHEMO 04/09/2016 JAKE JOSEPH N Ot Z92.3 PERSONAL HISTORY OF IRRADIATION 04/09/2016 JAKE JOSEPH N Ot C20 MALIGNANT NEOPLASM OF RECTUM 04/09/2016 JAKE JOSEPH N Ot I10 ESSENTIAL (PRIMARY) HYPERTENSION 04/09/2016 JAKE JOSEPH N Ot Z51.11 ENCOUNTER FOR ANTINEOPLASTIC CHEMOTHERAP 04/09/2016 JAKE JOSEPH N Ot Z79.899 OTHER GROUP HOME (CURRENT) DRUG THERAPY 04/09/2016 JAKE JOSEPH N Ot Z92.21 PERSONAL HISTORY OF ANTINEOPLASTIC CHEMO 04/09/2016 JAKE JOSEPH N Ot Z92.3 PERSONAL HISTORY OF IRRADIATION 04/10/2016 JAKE JOSEPH N Ot C20 MALIGNANT NEOPLASM OF RECTUM 04/10/2016 JAKE JOSEPH N Ot I10 ESSENTIAL (PRIMARY) HYPERTENSION 04/10/2016 JAKE JOSEPH N Ot Z79.899 OTHER GROUP HOME (CURRENT) DRUG THERAPY 04/10/2016 JAKE JOSEPH N Ot Z92.21 PERSONAL HISTORY OF ANTINEOPLASTIC CHEMO 04/10/2016 JAKE JOSEPH N Ot Z92.3 PERSONAL HISTORY OF IRRADIATION 04/10/2016 JAKE JOSEPH N Ot C20 MALIGNANT NEOPLASM OF RECTUM 04/10/2016 JAKE JOSEPH N Ot I10 ESSENTIAL (PRIMARY) HYPERTENSION 04/10/2016 JAKE JOSEPH N Ot Z51.11 ENCOUNTER FOR ANTINEOPLASTIC CHEMOTHERAP 04/10/2016 JAKE JOSEPH N Ot Z79.899 OTHER GROUP HOME (CURRENT) DRUG THERAPY 04/10/2016 JAKE JOSEPH N Ot Z92.21 PERSONAL HISTORY OF ANTINEOPLASTIC CHEMO 04/10/2016 JAKE JOSEPH N Ot Z92.3 PERSONAL HISTORY OF IRRADIATION 04/10/2016 SUSANA JAKE N Ot C20 MALIGNANT NEOPLASM OF RECTUM 04/10/2016 SUSANA JAKE N Ot N13.39 OTHER HYDRONEPHROSIS 04/10/2016 SUSANA JAKE N Ot C20 MALIGNANT NEOPLASM OF RECTUM 04/10/2016 SUSANAJAKE N Ot N13.39 OTHER HYDRONEPHROSIS 05/03/2016 SUSANA BOBAN N Ot C20 MALIGNANT NEOPLASM OF RECTUM 05/03/2016 JAKE JOSEPH Farooq Ot 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 05/03/2016 SUSANA KATRANDALL Farooq Ot D64.9 ANEMIA, UNSPECIFIED 05/03/2016 SUSANA JAKE Trivedi Ot I10 ESSENTIAL (PRIMARY) HYPERTENSION 05/03/2016 JAKE JOSEPH Farooq Ot N39.0 URINARY TRACT INFECTION, SITE NOT SPECIF 05/03/2016 SUSANA KATRANDALL Farooq Ot T85.9XXA UNSP COMPLICATION OF INTERNAL PROSTH DEV 05/03/2016 JAKE JOSEPH Farooq Ot Z51.11 ENCOUNTER FOR ANTINEOPLASTIC CHEMOTHERAP 05/03/2016 SUSANA JAKE Trivedi Ot Z79.899 OTHER SUPERINTENDENT FISH HATCHERY (CURRENT) DRUG THERAPY 05/03/2016 SUSANAJAKE Ot Z92.3 PERSONAL HISTORY OF IRRADIATION 05/03/2016 SUSANAKATRANDALL Farooq Ot 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 06/09/2016 SUSANAJAKE Ot C20 MALIGNANT NEOPLASM OF RECTUM 06/09/2016 SUSANAJAKE Ot I10 ESSENTIAL (PRIMARY) HYPERTENSION 06/09/2016 SUSANAKATRANDALL Farooq Ot Z79.899 OTHER GROUP HOME (CURRENT) DRUG THERAPY 06/09/2016 SUSANA KATRANDALL Farooq Ot Z92.21 PERSONAL HISTORY OF ANTINEOPLASTIC CHEMO 06/09/2016 SUSANAJAKE Ot Z92.3 PERSONAL HISTORY OF IRRADIATION 06/09/2016 SUSANAJAKE Ot N13.30 UNSPECIFIED HYDRONEPHROSIS 06/09/2016 SUSANAJAKE Ot N13.30 UNSPECIFIED HYDRONEPHROSIS 06/10/2016 SUSANAJAKE Ot C20 MALIGNANT NEOPLASM OF RECTUM 06/10/2016 SUSANAJAKE Ot I10 ESSENTIAL (PRIMARY) HYPERTENSION 06/10/2016 SUSANAKATRANDALL N Ot Z79.899 OTHER GROUP HOME (CURRENT) DRUG THERAPY 06/10/2016 SUSANAJAKE N Ot Z92.21 PERSONAL HISTORY OF ANTINEOPLASTIC CHEMO 06/10/2016 SUSANAJAKE N Ot Z92.3 PERSONAL HISTORY OF IRRADIATION 06/13/2016 SUSANAJAKE N Ot N13.30 UNSPECIFIED HYDRONEPHROSIS 06/15/2016 SUSANAJAKE Ot N13.30 UNSPECIFIED HYDRONEPHROSIS 06/26/2016 Ot 154.1 MALIGNANT NEOPL RECTUM 06/26/2016 Ot 280.9 IRON DEFIC ANEMIA NOS 06/26/2016 Ot V58.69 OTH MED,LT,CURRENT USE 06/26/2016 JAKE JOSEPH Farooq Ot C20 MALIGNANT NEOPLASM OF RECTUM 06/26/2016 SUSANA KATRANDALL N Ot I10 ESSENTIAL (PRIMARY) HYPERTENSION 06/26/2016 SUSANA JAKE N Ot Z79.899 OTHER SUPERINTENDENT FISH HATCHERY (CURRENT) DRUG THERAPY 06/26/2016 SUSANA JAKE N Ot Z92.21 PERSONAL HISTORY OF ANTINEOPLASTIC CHEMO 06/26/2016 SUSANA JAKE N Ot Z92.3 PERSONAL HISTORY OF IRRADIATION 06/26/2016 SUSANA JAKE N Ot C20 MALIGNANT NEOPLASM OF RECTUM 06/26/2016 SUSANA JAKE N Ot I10 ESSENTIAL (PRIMARY) HYPERTENSION 06/26/2016 SUSANAJAKE N Ot Z79.899 OTHER SUPERINTENDENT FISH HATCHERY (CURRENT) DRUG THERAPY 06/26/2016 SUSANA JAKE N Ot Z92.21 PERSONAL HISTORY OF ANTINEOPLASTIC CHEMO 06/26/2016 SUSANA JAKE N Ot Z92.3 PERSONAL HISTORY OF IRRADIATION 06/27/2016 SUSANA JAKE N Ot C20 MALIGNANT NEOPLASM OF RECTUM 06/27/2016 SUSANA JAKE N Ot I10 ESSENTIAL (PRIMARY) HYPERTENSION 06/27/2016 SUSANAJAKE Ot R82.99 OTHER ABNORMAL FINDINGS IN URINE 06/27/2016 SUSANA JAKE N Ot Z79.899 OTHER SUPERINTENDENT FISH HATCHERY (CURRENT) DRUG THERAPY 06/27/2016 SUSANA JAKE N Ot Z92.21 PERSONAL HISTORY OF ANTINEOPLASTIC CHEMO 06/27/2016 SUSANAJAKE N Ot Z92.3 PERSONAL HISTORY OF IRRADIATION 06/30/2016 SUSANA JAKE N Ot C20 MALIGNANT NEOPLASM OF RECTUM 06/30/2016 SUSANAJAKE N Ot E86.0 DEHYDRATION 06/30/2016 JAKE JOSEPH N Ot I12.9 HYPERTENSIVE CHRONIC KIDNEY DISEASE W ST 06/30/2016 JAKE JOSEPH N Ot N17.9 ACUTE KIDNEY FAILURE, UNSPECIFIED 06/30/2016 JAKE JOSEPH N Ot N18.9 CHRONIC KIDNEY DISEASE, UNSPECIFIED 06/30/2016 JAKE JOSEPH Ot R11.2 NAUSEA WITH VOMITING, UNSPECIFIED 06/30/2016 JAKE JOSEPH N Ot Z66 DO NOT RESUSCITATE 06/30/2016 JAKE JOSEPH N Ot Z92.21 PERSONAL HISTORY OF ANTINEOPLASTIC CHEMO 06/30/2016 JAKE JOSEPH N Ot Z92.3 PERSONAL HISTORY OF IRRADIATION 06/30/2016 JAKE JOSEPH N Ot C20 MALIGNANT NEOPLASM OF RECTUM 06/30/2016 JAKE JOSEPH N Ot E86.0 DEHYDRATION 06/30/2016 JAKE JOSEPH N Ot I12.9 HYPERTENSIVE CHRONIC KIDNEY DISEASE W ST 06/30/2016 JAKE JOSEPH N Ot N17.9 ACUTE KIDNEY FAILURE, UNSPECIFIED 06/30/2016 SUSANAJAKE DE SOUZA N Ot N18.9 CHRONIC KIDNEY DISEASE, UNSPECIFIED 06/30/2016 JAKE JOSEPH N Ot R11.2 NAUSEA WITH VOMITING, UNSPECIFIED 06/30/2016 JAKE JOSEPH N Ot Z66 DO NOT RESUSCITATE 06/30/2016 JAKE JOSEPH N Ot Z92.21 PERSONAL HISTORY OF ANTINEOPLASTIC CHEMO 06/30/2016 JAKE JOSEPH N Ot Z92.3 PERSONAL HISTORY OF IRRADIATION 07/01/2016 JAKE JOSEPH N Ot C20 MALIGNANT NEOPLASM OF RECTUM 07/01/2016 JAKE JOSEPH N Ot E86.0 DEHYDRATION 07/01/2016 JAKE JOSEPH N Ot I12.9 HYPERTENSIVE CHRONIC KIDNEY DISEASE W ST 07/01/2016 JAKE JOSEPH N Ot N17.9 ACUTE KIDNEY FAILURE, UNSPECIFIED 07/01/2016 JAKE JOSEPH N Ot N18.9 CHRONIC KIDNEY DISEASE, UNSPECIFIED 07/01/2016 JAKE JOSEPH N Ot R11.2 NAUSEA WITH VOMITING, UNSPECIFIED 07/01/2016 JAKE JOSEPH N Ot Z66 DO NOT RESUSCITATE 07/01/2016 JAKE JOSEPH N Ot Z92.21 PERSONAL HISTORY OF ANTINEOPLASTIC CHEMO 07/01/2016 JAKE JOSEPH N Ot Z92.3 PERSONAL HISTORY OF IRRADIATION 07/01/2016 JAKE JOSEPH N Ot C20 MALIGNANT NEOPLASM OF RECTUM 07/01/2016 JAKE JOSEPH N Ot E86.0 DEHYDRATION 07/01/2016 JAKE JOSEPH N Ot I12.9 HYPERTENSIVE CHRONIC KIDNEY DISEASE W ST 07/01/2016 JAKE JOSEPH N Ot N17.9 ACUTE KIDNEY FAILURE, UNSPECIFIED 07/01/2016 JAKE JOSEPH Ot N18.9 CHRONIC KIDNEY DISEASE, UNSPECIFIED 07/01/2016 JAKE JOSEPH Ot R11.2 NAUSEA WITH VOMITING, UNSPECIFIED 07/01/2016 JAKE JOSEPH Farooq Ot Z66 DO NOT RESUSCITATE 07/01/2016 JAKE JOSEPH Ot Z92.21 PERSONAL HISTORY OF ANTINEOPLASTIC CHEMO 07/01/2016 JAKE JOSEPH Farooq Ot Z92.3 PERSONAL HISTORY OF IRRADIATION 07/01/2016 JAKE JOSEPH Farooq Ot C20 MALIGNANT NEOPLASM OF RECTUM 07/01/2016 JAKE JOSEPH Farooq Ot E86.0 DEHYDRATION 07/01/2016 JAKE JOSEPH Farooq Ot I12.9 HYPERTENSIVE CHRONIC KIDNEY DISEASE W ST 07/01/2016 JAKE JOSEPH Farooq Ot N17.9 ACUTE KIDNEY FAILURE, UNSPECIFIED 07/01/2016 JAKE JOSEPH Farooq Ot N18.9 CHRONIC KIDNEY DISEASE, UNSPECIFIED 07/01/2016 JAKE JOSEPH Farooq Ot R11.2 NAUSEA WITH VOMITING, UNSPECIFIED 07/01/2016 JAKE JOSEPH Farooq Ot Z66 DO NOT RESUSCITATE 07/01/2016 JAKE JOSEPH Ot Z92.21 PERSONAL HISTORY OF ANTINEOPLASTIC CHEMO 07/01/2016 JAKE JOSEPH Farooq Ot Z92.3 PERSONAL HISTORY OF IRRADIATION 07/01/2016 JAKE JOSEPH Farooq Ot 154.1 MALIGNANT NEOPL RECTUM 07/01/2016 MIRA BARBOZA STATISTICAL METHODS TEACHER Ot 154.1 MALIGNANT NEOPL RECTUM 07/01/2016 MIRA BARBOZA STATISTICAL METHODS TEACHER Ot 356.9 IDIO PERIPH NEURPTHY NOS 07/01/2016 MIRA BARBOZA STATISTICAL METHODS TEACHER Ot V15.3 HX OF IRRADIATION 07/01/2016 MIRA BARBOZA STATISTICAL METHODS TEACHER Ot V44.3 COLOSTOMY STATUS 07/01/2016 MIRA BARBOZA STATISTICAL METHODS TEACHER Ot V58.69 OTH MED,LT,CURRENT USE 07/01/2016 MIRA BARBOZA STATISTICAL METHODS TEACHER Ot V87.41 PERSONAL HISTORY OF ANTINEOPLASTIC CHEMO 07/01/2016 JAKE JOSEPH Farooq Ot 724.5 BACKACHE NOS 07/01/2016 MIRA BARBOZA STATISTICAL METHODS TEACHER Ot 154.1 MALIGNANT NEOPL RECTUM 07/01/2016 MIRA BARBOZA STATISTICAL METHODS TEACHER Ot 356.9 IDIO PERIPH NEURPTHY NOS 07/01/2016 JABARI MIRA Khan STATISTICAL METHODS TEACHER Ot V15.3 HX OF IRRADIATION 07/01/2016 GINGER BARBOZAKUSUM Bill STATISTICAL METHODS TEACHER Ot V44.3 COLOSTOMY STATUS 07/01/2016 MIRA BARBOZA STATISTICAL METHODS TEACHER Ot V58.69 OTH MED,LT,CURRENT USE 07/01/2016 JABARI MIRA Khan STATISTICAL METHODS TEACHER Ot V87.41 PERSONAL HISTORY OF ANTINEOPLASTIC CHEMO 07/01/2016 MIRA BARBOZA STATISTICAL METHODS TEACHER Ot 154.1 MALIGNANT NEOPL RECTUM 07/01/2016 GINGER BARBOZAKUSUM Bill STATISTICAL METHODS TEACHER Ot 784.0 HEADACHE 07/01/2016 GINGER BARBOZAKUSUM Bill STATISTICAL METHODS TEACHER Ot 787.01 NAUSEA WITH VOMITING 07/01/2016 MIRA BARBOZA STATISTICAL METHODS TEACHER Ot C20 MALIGNANT NEOPLASM OF RECTUM 07/01/2016 GINGER BARBOZAKUSUM Bill STATISTICAL METHODS TEACHER Ot I10 ESSENTIAL (PRIMARY) HYPERTENSION 07/01/2016 MIRA BARBOZA STATISTICAL METHODS TEACHER Ot Z79.899 OTHER GROUP HOME (CURRENT) DRUG THERAPY 07/01/2016 MIRA BARBOZA STATISTICAL METHODS TEACHER Ot Z92.21 PERSONAL HISTORY OF ANTINEOPLASTIC CHEMO 07/01/2016 GINGER BARBOZAKUSUM Bill STATISTICAL METHODS TEACHER Ot Z92.3 PERSONAL HISTORY OF IRRADIATION 07/01/2016 MIRA BARBOZA STATISTICAL METHODS TEACHER Ot C20 MALIGNANT NEOPLASM OF RECTUM 07/01/2016 MIRA BARBOZA STATISTICAL METHODS TEACHER Ot I10 ESSENTIAL (PRIMARY) HYPERTENSION 07/01/2016 MIRA BARBOZA STATISTICAL METHODS TEACHER Ot Z79.899 OTHER GROUP HOME (CURRENT) DRUG THERAPY 07/01/2016 MIRA BARBOZA STATISTICAL METHODS TEACHER Ot Z92.21 PERSONAL HISTORY OF ANTINEOPLASTIC CHEMO 07/01/2016 JABARI MIRA Khan STATISTICAL METHODS TEACHER Ot Z92.3 PERSONAL HISTORY OF IRRADIATION 07/01/2016 MIRA BARBOZA STATISTICAL METHODS TEACHER Ot C20 MALIGNANT NEOPLASM OF RECTUM 07/01/2016 MIRA BARBOZA STATISTICAL METHODS TEACHER Ot C20 MALIGNANT NEOPLASM OF RECTUM 07/01/2016 MIRA BARBOZA STATISTICAL METHODS TEACHER Ot R60.9 EDEMA, UNSPECIFIED 07/01/2016 MIRA BARBOZA STATISTICAL METHODS TEACHER Ot C20 MALIGNANT NEOPLASM OF RECTUM 07/01/2016 MIRA BARBOZA STATISTICAL METHODS TEACHER Ot R79.89 OTHER SPECIFIED ABNORMAL FINDINGS OF BLO 07/01/2016 SUSANA, BOBAN N Ot N13.30 UNSPECIFIED HYDRONEPHROSIS 07/01/2016 MIRA BARBOZA STATISTICAL METHODS TEACHER Ot C20 MALIGNANT NEOPLASM OF RECTUM 07/01/2016 MIRA BARBOZA STATISTICAL METHODS TEACHER Ot I10 ESSENTIAL (PRIMARY) HYPERTENSION 07/01/2016 MIRA BARBOZA STATISTICAL METHODS TEACHER Ot Z79.899 OTHER SUPERINTENDENT FISH HATCHERY (CURRENT) DRUG THERAPY 07/01/2016 MIRA BARBOZA S STATISTICAL METHODS TEACHER Ot Z92.21 PERSONAL HISTORY OF ANTINEOPLASTIC CHEMO 07/01/2016 MIRA BARBOZA STATISTICAL METHODS TEACHER Ot Z92.3 PERSONAL HISTORY OF IRRADIATION 07/01/2016 GIANCARLO AMATO MD Ot N36.8 OTHER SPECIFIED DISORDERS OF URETHRA 07/01/2016 MIRA BARBOZA STATISTICAL METHODS TEACHER Ot C20 MALIGNANT NEOPLASM OF RECTUM 07/01/2016 MIRA BARBOZA STATISTICAL METHODS TEACHER Ot I10 ESSENTIAL (PRIMARY) HYPERTENSION 07/01/2016 MIRA BARBOZA STATISTICAL METHODS TEACHER Ot Z79.899 OTHER SUPERINTENDENT FISH HATCHERY (CURRENT) DRUG THERAPY 07/01/2016 MIRA BARBOZA STATISTICAL METHODS TEACHER Ot Z92.21 PERSONAL HISTORY OF ANTINEOPLASTIC CHEMO 07/01/2016 MIRA BARBOZA STATISTICAL METHODS TEACHER Ot Z92.3 PERSONAL HISTORY OF IRRADIATION 07/01/2016 JAKE JOSEPH Farooq Ot N13.30 UNSPECIFIED HYDRONEPHROSIS 07/01/2016 SEGUNDO LAMA MD Ot C20 MALIGNANT NEOPLASM OF RECTUM 07/01/2016 SEGUNDO LAMA MD Ot I10 ESSENTIAL (PRIMARY) HYPERTENSION 07/01/2016 SEGUNDO LAMA MD Ot Z51.11 ENCOUNTER FOR ANTINEOPLASTIC CHEMOTHERAP 07/01/2016 SEGUNDO LAMA MD Ot Z79.899 OTHER SUPERINTENDENT FISH HATCHERY (CURRENT) DRUG THERAPY 07/01/2016 SEGUNDO LAMA MD Ot Z92.3 PERSONAL HISTORY OF IRRADIATION 07/01/2016 MIRA BARBOZA STATISTICAL METHODS TEACHER Ot C20 MALIGNANT NEOPLASM OF RECTUM 07/01/2016 MIRA BARBOZA STATISTICAL METHODS TEACHER Ot I10 ESSENTIAL (PRIMARY) HYPERTENSION 07/01/2016 MIRA BARBOZA STATISTICAL METHODS TEACHER Ot Z79.899 OTHER GROUP HOME (CURRENT) DRUG THERAPY 07/01/2016 MIRA BARBOZA STATISTICAL METHODS TEACHER Ot Z92.21 PERSONAL HISTORY OF ANTINEOPLASTIC CHEMO 07/01/2016 MIRA BARBOZA STATISTICAL METHODS TEACHER Ot Z92.3 PERSONAL HISTORY OF IRRADIATION 07/01/2016 MIRA BARBOZA STATISTICAL METHODS TEACHER Ot C20 MALIGNANT NEOPLASM OF RECTUM 07/01/2016 JAKE JOSEPH N Ot N13.30 UNSPECIFIED HYDRONEPHROSIS 07/01/2016 MIRA BARBOZA STATISTICAL METHODS TEACHER Ot M79.662 PAIN IN LEFT LOWER LEG 07/01/2016 MIRA BARBOZA STATISTICAL METHODS TEACHER Ot R22.42 LOCALIZED SWELLING, MASS AND LUMP, LEFT 07/01/2016 KAT JOSEPHRANDALL N Ot N13.30 UNSPECIFIED HYDRONEPHROSIS 07/01/2016 KAT JOSEPHRANDALL N Ot N13.30 UNSPECIFIED HYDRONEPHROSIS 07/01/2016 JAKE JOSEPH N Ot N13.30 UNSPECIFIED HYDRONEPHROSIS 07/01/2016 MIRA BARBOZA STATISTICAL METHODS TEACHER Ot C20 MALIGNANT NEOPLASM OF RECTUM 07/01/2016 SUSANA JAKE N Ot C20 MALIGNANT NEOPLASM OF RECTUM 07/01/2016 SUSANA JAKE N Ot I10 ESSENTIAL (PRIMARY) HYPERTENSION 07/01/2016 SUSANA, JAKE N Ot Z79.899 OTHER GROUP HOME (CURRENT) DRUG THERAPY 07/01/2016 SUSANA JAKE N Ot Z92.21 PERSONAL HISTORY OF ANTINEOPLASTIC CHEMO 07/01/2016 SUSANA JAKE N Ot Z92.3 PERSONAL HISTORY OF IRRADIATION 07/01/2016 SUSANA JAKE N Ot C20 MALIGNANT NEOPLASM OF RECTUM 07/01/2016 SUSANA KATRANDALL N Ot N13.39 OTHER HYDRONEPHROSIS 07/01/2016 RENATA ARRIAGA Ot T83.128A DISPLACEMENT OF OTH URINARY DEVICES AND 07/01/2016 RENATA ARRIAGA Ot Z85.048 PRSNL HX OF MALIG NEOPLM OF RECTUM, RECT 07/01/2016 JAKE JOSEPH N Ot N13.30 UNSPECIFIED HYDRONEPHROSIS 07/01/2016 SUSANA JAKE N Ot C20 MALIGNANT NEOPLASM OF RECTUM 07/01/2016 SUSANA JAKE N Ot I10 ESSENTIAL (PRIMARY) HYPERTENSION 07/01/2016 SUSANA JAKE N Ot R82.99 OTHER ABNORMAL FINDINGS IN URINE 07/01/2016 SUSANA JAKE N Ot Z79.899 OTHER SUPERINTENDENT FISH HATCHERY (CURRENT) DRUG THERAPY 07/01/2016 SUSANA, JAKE N Ot Z92.21 PERSONAL HISTORY OF ANTINEOPLASTIC CHEMO 07/01/2016 SUSANA JAEK N Ot Z92.3 PERSONAL HISTORY OF IRRADIATION 07/01/2016 JAKE JOSEPH N Ot C20 MALIGNANT NEOPLASM OF RECTUM 07/01/2016 SUSANA JAKE Trivedi Ot E86.0 DEHYDRATION 07/01/2016 SUSANA JAKE N Ot I12.9 HYPERTENSIVE CHRONIC KIDNEY DISEASE W ST 07/01/2016 SUSANA KATRANDALL N Ot N17.9 ACUTE KIDNEY FAILURE, UNSPECIFIED 07/01/2016 SUSANA JAKE Trivedi Ot N18.9 CHRONIC KIDNEY DISEASE, UNSPECIFIED 07/01/2016 SUSANA KATRANDALL Farooq Ot R11.2 NAUSEA WITH VOMITING, UNSPECIFIED 07/01/2016 SUSANA JAKE N Ot Z66 DO NOT RESUSCITATE 07/01/2016 SUSANA JAKE N Ot Z92.21 PERSONAL HISTORY OF ANTINEOPLASTIC CHEMO 07/01/2016 SUSANA JAKE N Ot Z92.3 PERSONAL HISTORY OF IRRADIATION 07/02/2016 SUSANA JAKE N Ot C20 MALIGNANT NEOPLASM OF RECTUM 07/02/2016 SUSANA JAKE Trivedi Ot D64.9 ANEMIA, UNSPECIFIED 07/02/2016 SUSANA JAKE Trivedi Ot E83.42 HYPOMAGNESEMIA 07/02/2016 SUSANA JAKE N Ot E86.0 DEHYDRATION 07/02/2016 SUSANA JAKE N Ot I12.9 HYPERTENSIVE CHRONIC KIDNEY DISEASE W ST 07/02/2016 SUSANA AJKE Trivedi Ot N13.5 CROSSING VESSEL AND STRICTURE OF URETER 07/02/2016 SUSANAJAKE N Ot N17.9 ACUTE KIDNEY FAILURE, UNSPECIFIED 07/02/2016 SUSANA, JAKE N Ot N18.9 CHRONIC KIDNEY DISEASE, UNSPECIFIED 07/02/2016 SUSANA JAKE Trivedi Ot N39.0 URINARY TRACT INFECTION, SITE NOT SPECIF 07/02/2016 SUSANA JAKE rTivedi Ot R11.2 NAUSEA WITH VOMITING, UNSPECIFIED 07/02/2016 SUSANA, JAKE N Ot Z66 DO NOT RESUSCITATE 07/02/2016 SUSANA JAKE N Ot Z92.21 PERSONAL HISTORY OF ANTINEOPLASTIC CHEMO 07/02/2016 SUSANA, JAKE N Ot Z92.3 PERSONAL HISTORY OF IRRADIATION Procedures Code Description Performed By Performed On [facility] Sameer Horne 01/13/2012 37450 ROUTINE VENIPUNCTURE 01/19/2012 28933 UA W/ CULTURE IF INDICATED 01/19/2012 50977 CBC 01/19/2012 General S Sameer Kumar 02/18/2012 Medical O Jake Joseph 05/18/2012 46.51 2012 23888 ROUTINE VENIPUNCTURE 12/08/2013 [id number] GFR CALC (RESULT ONLY) 12/08/2013 22853 BMP 12/08/2013 37241 MAGNESIUM 2013 [id number] COMPLETE BLOOD COUNT NO DIFF (CBC Result) 12/09/2013 42142 DIFFERENTIAL WBC COUNT (CBC DIFF RESULT) 12/09/2013 00603 CBC W/MANUAL DIF (ORDER) 12/09/2013 BLOOD PRESSURE CHECK 12/15/2013 43154 ROUTINE VENIPUNCTURE 12/15/2013 47780 BMP 12/15/2013 92179 MAGNESIUM 2013 [id number] GFR CALC (RESULT ONLY) 12/15/2013 [id number] COMPLETE BLOOD COUNT NO DIFF (CBC Result) 12/15/2013 61525 DIFFERENTIAL WBC COUNT (CBC DIFF RESULT) 12/15/2013 77537 CBC W/MANUAL DIF (ORDER) 12/16/2013 BLOOD PRESSURE CHECK 01/04/2014 88682 ROUTINE VENIPUNCTURE 01/04/2014 [id number] GFR CALC (RESULT ONLY) 01/04/2014 39094 BMP 01/04/2014 22474 MAGNESIUM 2013 [id number] COMPLETE BLOOD COUNT NO DIFF (CBC Result) 01/04/2014 44315 DIFFERENTIAL WBC COUNT (CBC DIFF RESULT) 01/04/2014 38413 CBC W/MANUAL DIF (ORDER) 01/05/2014 91344 BMP 01/11/2014 90478 MAGNESIUM 2013 55031 CBC W/MANUAL DIF (ORDER) 01/11/2014 33876 ROUTINE VENIPUNCTURE 01/18/2014 BLOOD PRESSURE CHECK 01/18/2014 52209 MAGNESIUM 2013 [id number] COMPLETE BLOOD COUNT NO DIFF (CBC Result) 01/19/2014 59954 DIFFERENTIAL WBC COUNT (CBC DIFF RESULT) 01/19/2014 96128 CBC W/MANUAL DIF (ORDER) 01/19/2014 [id number] DRAINAGE OF RIGHT KIDNEY WITH DRAINAGE D 07/13/2015 [id number] DRAINAGE OF LEFT KIDNEY WITH DRAINAGE DE 07/13/2015 [id number] CHANGE DRAINAGE DEVICE IN KIDNEY, DATA WAREHOUSING SPECIALIST 07/02/2016 Results Test Result Range Bacterial urine culture - 06/09/16 12:48 Bacterial urine culture [id number] NR COLONY COUNT 10,000/ML - 100,000/ML NRG FTX;REPORTABLE SENSITIVITY REPORTED AT 1205, 06-13-[address] [facility] CALL POSITIVES (F1 HELP) CALLED TO REMY/CC AT 1305, [facility] Bacterial susceptibility panel - 06/09/16 12:48 Gentamicin susceptibility test by minimum inhibitory concentration <= NRG Trimethoprim/sulfamethoxazole susceptibility test by minimum inhibitoryconcentration <= NRG Ampicillin susceptibility test by minimum inhibitory concentration <= NRG Tobramycin susceptibility test by minimum inhibitory concentration <= NRG Cefazolin susceptibility test by minimum inhibitory concentration <= NRG Ceftriaxone susceptibility test by minimum inhibitory concentration <= NRG Ampicillin/sulbactam susceptibility test by minimum inhibitory concentration <= NRG Piperacillin/tazobactam susceptibility test by minimum inhibitory concentration <= NRG Ciprofloxacin susceptibility test by minimum inhibitory concentration <= NRG Meropenem susceptibility test by minimum inhibitory concentration <= NRG Nitrofurantoin susceptibility test by minimum inhibitory concentration 128 NRG Aztreonam susceptibility test by minimum inhibitory concentration <= NR Bacterial susceptibility panel - 06/09/16 12:48 Gentamicin susceptibility test by minimum inhibitory concentration <= NRG Trimethoprim/sulfamethoxazole susceptibility test by minimum inhibitoryconcentration <= NRG Tobramycin susceptibility test by minimum inhibitory concentration <= NRG Cefazolin susceptibility test by minimum inhibitory concentration >= NRG Ceftriaxone susceptibility test by minimum inhibitory concentration <= NRG Ciprofloxacin susceptibility test by minimum inhibitory concentration 2 NRG Meropenem susceptibility test by minimum inhibitory concentration <= NRG Nitrofurantoin susceptibility test by minimum inhibitory concentration 128 NRG Aztreonam susceptibility test by minimum inhibitory concentration <= NRG Bacterial susceptibility panel - 06/09/16 12:48 Oxacillin susceptibility test by minimum inhibitory concentration >= NRG Gentamicin susceptibility test by minimum inhibitory concentration <= NRG Trimethoprim/sulfamethoxazole susceptibility test by minimum inhibitoryconcentration <= NRG Vancomycin susceptibility test by minimum inhibitory concentration 1 NRG Levofloxacin susceptibility test by minimum inhibitory concentration 4 NRG Rifampin susceptibility test by minimum inhibitory concentration <= NRG Tetracycline susceptibility test by minimum inhibitory concentration <= NRG Ciprofloxacin susceptibility test by minimum inhibitory concentration R NR Bacterial susceptibility panel - 06/09/16 12:48 Gentamicin susceptibility test by minimum inhibitory concentration S NRG Vancomycin susceptibility test by minimum inhibitory concentration 1 NRG Levofloxacin susceptibility test by minimum inhibitory concentration 1 NRG Tetracycline susceptibility test by minimum inhibitory concentration >= NRG Ampicillin susceptibility test by minimum inhibitory concentration <= NRG Nitrofurantoin susceptibility test by minimum inhibitory concentration <= NRG Linezolid susceptibility test by minimum inhibitory concentration 2 NRG Complete urinalysis with reflex to culture - 06/26/16 17:25 Urine color determination RED NRG Urine clarity determination BLOODY NRG Urine pH measurement by test strip 7 5- 9 Specific gravity of urine by test strip 1.010 1.016-1.022 Urine protein assay by test strip, semi-quantitative 4+ NEGATIVE Urine glucose detection by automated test strip NEGATIVE NEGATIVE Erythrocytes detection in urine sediment by light microscopy 5+ NEGATIVE Urine ketones detection by automated test strip NEGATIVE NEGATIVE Urine nitrite detection by test strip NEGATIVE NEGATIVE Urine total bilirubin detection by test strip NEGATIVE NEGATIVE Urine urobilinogen measurement by automated test strip (mass/volume) NORMAL NORMAL Urine leukocyte esterase detection by dipstick 2+ NEGATIVE Automated urine sediment erythrocyte count by microscopy (number/high power field) TNTC NRG Automated urine sediment leukocyte count by microscopy (number/high power field ) > [HPF] NRG Bacteria detection in urine sediment by light microscopy MODERATE NRG Crystals detection in urine sediment by light microscopy NONE NRG Casts detection in urine sediment by light microscopy NONE NRG Mucus detection in urine sediment by light microscopy NEGATIVE NRG Complete urinalysis with reflex to culture YES NRG Bacterial urine culture - 06/26/16 17:25 Bacterial urine culture [id number] NRG COLONY COUNT >100,000/ML NRG Bacterial urine culture - 06/26/16 17:25 Bacterial urine culture [id number] NRG COLONY COUNT >100,000/ML NRG FTX;REPORTABLE SENSITIVITY REPORTED AT [facility] Bacterial urine culture - 06/26/16 17:25 Bacterial urine culture [id number] NRG COLONY COUNT >100,000/ML NR FTX;REPORTABLE SENSITIVITY REPORTED 06/27 ON NR FREE TEXT ENTRY 2 LT NEPHROSTOMY CULTURE [facility] Bacterial susceptibility panel - 06/26/16 17:25 Gentamicin susceptibility test by minimum inhibitory concentration <= NRG Trimethoprim/sulfamethoxazole susceptibility test by minimum inhibitoryconcentration <= NRG Tobramycin susceptibility test by minimum inhibitory concentration <= NRG Cefazolin susceptibility test by minimum inhibitory concentration >= NRG Ceftriaxone susceptibility test by minimum inhibitory concentration <= NRG Ciprofloxacin susceptibility test by minimum inhibitory concentration >= NRG Meropenem susceptibility test by minimum inhibitory concentration <= NRG Nitrofurantoin susceptibility test by minimum inhibitory concentration 256 NRG Aztreonam susceptibility test by minimum inhibitory concentration <= [facility] Bacterial susceptibility panel - 06/26/16 17:25 Gentamicin susceptibility test by minimum inhibitory concentration >= NRG Trimethoprim/sulfamethoxazole susceptibility test by minimum inhibitoryconcentration <= NRG Tobramycin susceptibility test by minimum inhibitory concentration >= NRG Cefazolin susceptibility test by minimum inhibitory concentration >= NRG Ceftriaxone susceptibility test by minimum inhibitory concentration >= NRG Piperacillin/tazobactam susceptibility test by minimum inhibitory concentration <= NRG Ciprofloxacin susceptibility test by minimum inhibitory concentration >= NRG Meropenem susceptibility test by minimum inhibitory concentration 1 NRG Nitrofurantoin susceptibility test by minimum inhibitory concentration >= NRG Aztreonam susceptibility test by minimum inhibitory concentration >= NRG Cefepime susceptibility test by minimum inhibitory concentration R NRG Amikacin susceptibility test by minimum inhibitory concentration R [facility] Comprehensive metabolic panel - 06/27/16 05:44 Serum or plasma sodium measurement (moles/volume) 132 mmol/ L 135-145 Serum or plasma potassium measurement (moles/volume) 3.1 mmol/L 3.6-5.0 Serum or plasma chloride measurement (moles/volume) 86 mmol/ L 98-107 Carbon dioxide 33 mmol/L 21-32 Serum or plasma anion gap determination (moles/volume) 13 mmol/L 5-14 Serum or plasma urea nitrogen measurement (mass/volume) 24 mg/dL 7-18 Serum or plasma creatinine measurement (mass/volume) 1.80 mg /dL 0.60-1.30 Serum or plasma urea nitrogen/creatinine mass ratio 13 NRG Serum or plasma creatinine measurement with calculation of estimated glomerular filtration rate 29 NRG Serum or plasma glucose measurement (mass/volume) 104 mg/dL 70-105 Serum or plasma calcium measurement (mass/volume) 8.3 mg/dL 8.5-10.1 Serum or plasma total bilirubin measurement (mass/volume) 0.4 mg/dL 0.1-1.0 Serum or plasma alkaline phosphatase measurement (enzymatic activity/volume) 110 U/L 40-136 Serum or plasma aspartate aminotransferase measurement (enzymatic activity/ volume) 21 U/L 5-34 Serum or plasma alanine aminotransferase measurement (enzymatic activity/volume ) 11 U/L 0-55 Serum or plasma protein measurement (mass/volume) 6.8 g/dL 6.4-8.2 Serum or plasma albumin measurement (mass/volume) 3.1 g/dL 3.2-4.5 Magnesium - 06/27/16 05:44 Magnesium 1.9 mg/dL 1.8-2.4 Complete blood count (CBC) with automated white blood cell (WBC) differential - 06/27/16 05:44 Blood leukocytes automated count (number/volume) 7.5 10*3/ uL 4.3-11.0 Blood erythrocytes automated count (number/volume) 2.26 10*6 /uL 4.35-5.85 Venous blood hemoglobin measurement (mass/volume) 6.8 g/dL 11.5-16.0 Blood hematocrit (volume fraction) 22 % 35-52 Automated erythrocyte mean corpuscular volume 96 [foz_us] 80-99 Automated erythrocyte mean corpuscular hemoglobin (mass per erythrocyte) 30 pg 25-34 Automated erythrocyte mean corpuscular hemoglobin concentration measurement ( mass/volume) 32 g/dL 32-36 Automated erythrocyte distribution width ratio 20.6 % 10.0-14.5 Automated blood platelet count (count/volume) 381 10*3/uL 130-400 Automated blood platelet mean volume measurement 8.8 [foz_us ] 7.4-10.4 Automated blood neutrophils/100 leukocytes 80 % 42-75 Automated blood lymphocytes/100 leukocytes 11 % 12-44 Blood monocytes/100 leukocytes 6 % 0-12 Automated blood eosinophils/100 leukocytes 2 % 0-10 Automated blood basophils/100 leukocytes 0 % 0-10 Blood neutrophils automated count (number/volume) 6.0 10*3 1.8-7.8 Blood lymphocytes automated count (number/volume) 0.9 10*3 1.0-4.0 Blood monocytes automated count (number/volume) 0.5 10*3 0.0-1.0 Automated eosinophil count 0.1 10*3/uL 0.0-0.3 Automated blood basophil count (count/volume) 0.0 10*3/uL 0.0-0.1 RED CELLS LEUKO REDUCED AS1 - 06/27/16 07:40 RED CELLS LEUKO REDUCED AS1 TRANSFUSED 1230 NRG Blood type T Indirect antibody screen panel - 06/27/16 07:40 ABO+Rh group AP [facility] Transfusion band number [id number] [facility] Blood group antibody screen NEGATIVE [facility] Whole blood basic metabolic panel - 06/28/16 05:25 Serum or plasma sodium measurement (moles/volume) 134 mmol/ L 135-145 Serum or plasma potassium measurement (moles/volume) 3.0 mmol/L 3.6-5.0 Serum or plasma chloride measurement (moles/volume) 95 mmol/ L 98-107 Carbon dioxide 30 mmol/L 21-32 Serum or plasma anion gap determination (moles/volume) 9 mmol/L 5-14 Serum or plasma urea nitrogen measurement (mass/volume) 19 mg/dL 7-18 Serum or plasma creatinine measurement (mass/volume) 1.34 mg /dL 0.60-1.30 Serum or plasma urea nitrogen/creatinine mass ratio 14 NRG Serum or plasma creatinine measurement with calculation of estimated glomerular filtration rate 41 NRG Serum or plasma glucose measurement (mass/volume) 96 mg/dL 70-105 Serum or plasma calcium measurement (mass/volume) 8.3 mg/dL 8.5-10.1 Complete blood count (CBC) with automated white blood cell (WBC) differential - 06/28/16 05:25 Blood leukocytes automated count (number/volume) 6.7 10*3/ uL 4.3-11.0 Blood erythrocytes automated count (number/volume) 2.87 10*6 /uL 4.35-5.85 Venous blood hemoglobin measurement (mass/volume) 8.5 g/dL 11.5-16.0 Blood hematocrit (volume fraction) 27 % 35-52 Automated erythrocyte mean corpuscular volume 93 [foz_us] 80-99 Automated erythrocyte mean corpuscular hemoglobin (mass per erythrocyte) 30 pg 25-34 Automated erythrocyte mean corpuscular hemoglobin concentration measurement ( mass/volume) 32 g/dL 32-36 Automated erythrocyte distribution width ratio 20.3 % 10.0-14.5 Automated blood platelet count (count/volume) 305 10*3/uL 130-400 Automated blood platelet mean volume measurement 8.7 [foz_us ] 7.4-10.4 Automated blood neutrophils/100 leukocytes 72 % 42-75 Automated blood lymphocytes/100 leukocytes 17 % 12-44 Blood monocytes/100 leukocytes 7 % 0-12 Automated blood eosinophils/100 leukocytes 4 % 0-10 Automated blood basophils/100 leukocytes 1 % 0-10 Blood neutrophils automated count (number/volume) 4.8 10*3 1.8-7.8 Blood lymphocytes automated count (number/volume) 1.1 10*3 1.0-4.0 Blood monocytes automated count (number/volume) 0.5 10*3 0.0-1.0 Automated eosinophil count 0.3 10*3/uL 0.0-0.3 Automated blood basophil count (count/volume) 0.0 10*3/uL 0.0-0.1 Complete blood count (CBC) with automated white blood cell (WBC) differential - 06/29/16 08:45 Blood leukocytes automated count (number/volume) 6.6 10*3/ uL 4.3-11.0 Blood erythrocytes automated count (number/volume) 3.18 10*6 /uL 4.35-5.85 Venous blood hemoglobin measurement (mass/volume) 9.6 g/dL 11.5-16.0 Blood hematocrit (volume fraction) 30 % 35-52 Automated erythrocyte mean corpuscular volume 95 [foz_us] 80-99 Automated erythrocyte mean corpuscular hemoglobin (mass per erythrocyte) 30 pg 25-34 Automated erythrocyte mean corpuscular hemoglobin concentration measurement ( mass/volume) 32 g/dL 32-36 Automated erythrocyte distribution width ratio 20.2 % 10.0-14.5 Automated blood platelet count (count/volume) 305 10*3/uL 130-400 Automated blood platelet mean volume measurement 8.8 [foz_us ] 7.4-10.4 Automated blood neutrophils/100 leukocytes 70 % 42-75 Automated blood lymphocytes/100 leukocytes 15 % 12-44 Blood monocytes/100 leukocytes 9 % 0-12 Automated blood eosinophils/100 leukocytes 5 % 0-10 Automated blood basophils/100 leukocytes 1 % 0-10 Blood neutrophils automated count (number/volume) 4.6 10*3 1.8-7.8 Blood lymphocytes automated count (number/volume) 1.0 10*3 1.0-4.0 Blood monocytes automated count (number/volume) 0.6 10*3 0.0-1.0 Automated eosinophil count 0.3 10*3/uL 0.0-0.3 Automated blood basophil count (count/volume) 0.1 10*3/uL 0.0-0.1 Comprehensive metabolic panel - 06/29/16 08:45 Serum or plasma sodium measurement (moles/volume) 135 mmol/ L 135-145 Serum or plasma potassium measurement (moles/volume) 3.4 mmol/L 3.6-5.0 Serum or plasma chloride measurement (moles/volume) 100 mmol /L 98-107 Carbon dioxide 26 mmol/L 21-32 Serum or plasma anion gap determination (moles/volume) 9 mmol/L 5-14 Serum or plasma urea nitrogen measurement (mass/volume) 18 mg/dL 7-18 Serum or plasma creatinine measurement (mass/volume) 1.29 mg /dL 0.60-1.30 Serum or plasma urea nitrogen/creatinine mass ratio 14 NRG Serum or plasma creatinine measurement with calculation of estimated glomerular filtration rate 43 NRG Serum or plasma glucose measurement (mass/volume) 107 mg/dL 70-105 Serum or plasma calcium measurement (mass/volume) 8.7 mg/dL 8.5-10.1 Serum or plasma total bilirubin measurement (mass/volume) 0.6 mg/dL 0.1-1.0 Serum or plasma alkaline phosphatase measurement (enzymatic activity/volume) 131 U/L 40-136 Serum or plasma aspartate aminotransferase measurement (enzymatic activity/ volume) 16 U/L 5-34 Serum or plasma alanine aminotransferase measurement (enzymatic activity/volume ) 11 U/L 0-55 Serum or plasma protein measurement (mass/volume) 7.2 g/dL 6.4-8.2 Serum or plasma albumin measurement (mass/volume) 3.2 g/dL 3.2-4.5 Complete blood count (CBC) with automated white blood cell (WBC) differential - 07/01/16 05:50 Blood leukocytes automated count (number/volume) 7.2 10*3/ uL 4.3-11.0 Blood erythrocytes automated count (number/volume) 2.92 10*6 /uL 4.35-5.85 Venous blood hemoglobin measurement (mass/volume) 8.7 g/dL 11.5-16.0 Blood hematocrit (volume fraction) 28 % 35-52 Automated erythrocyte mean corpuscular volume 96 [foz_us] 80-99 Automated erythrocyte mean corpuscular hemoglobin (mass per erythrocyte) 30 pg 25-34 Automated erythrocyte mean corpuscular hemoglobin concentration measurement ( mass/volume) 31 g/dL 32-36 Automated erythrocyte distribution width ratio 19.9 % 10.0-14.5 Automated blood platelet count (count/volume) 330 10*3/uL 130-400 Automated blood platelet mean volume measurement 8.5 [foz_us ] 7.4-10.4 Automated blood neutrophils/100 leukocytes 69 % 42-75 Automated blood lymphocytes/100 leukocytes 14 % 12-44 Blood monocytes/100 leukocytes 12 % 0-12 Automated blood eosinophils/100 leukocytes 6 % 0-10 Automated blood basophils/100 leukocytes 1 % 0-10 Blood neutrophils automated count (number/volume) 4.9 10*3 1.8-7.8 Blood lymphocytes automated count (number/volume) 1.0 10*3 1.0-4.0 Blood monocytes automated count (number/volume) 0.8 10*3 0.0-1.0 Automated eosinophil count 0.4 10*3/uL 0.0-0.3 Automated blood basophil count (count/volume) 0.0 10*3/uL 0.0-0.1 Comprehensive metabolic panel - 07/01/16 05:50 Serum or plasma sodium measurement (moles/volume) 137 mmol/ L 135-145 Serum or plasma potassium measurement (moles/volume) 3.6 mmol/L 3.6-5.0 Serum or plasma chloride measurement (moles/volume) 104 mmol /L 98-107 Carbon dioxide 24 mmol/L 21-32 Serum or plasma anion gap determination (moles/volume) 9 mmol/L 5-14 Serum or plasma urea nitrogen measurement (mass/volume) 13 mg/dL 7-18 Serum or plasma creatinine measurement (mass/volume) 1.11 mg /dL 0.60-1.30 Serum or plasma urea nitrogen/creatinine mass ratio 12 NRG Serum or plasma creatinine measurement with calculation of estimated glomerular filtration rate 51 NRG Serum or plasma glucose measurement (mass/volume) 101 mg/dL 70-105 Serum or plasma calcium measurement (mass/volume) 8.4 mg/dL 8.5-10.1 Serum or plasma total bilirubin measurement (mass/volume) 0.4 mg/dL 0.1-1.0 Serum or plasma alkaline phosphatase measurement (enzymatic activity/volume) 97 U/L 40-136 Serum or plasma aspartate aminotransferase measurement (enzymatic activity/ volume) 12 U/L 5-34 Serum or plasma alanine aminotransferase measurement (enzymatic activity/volume ) 10 U/L 0-55 Serum or plasma protein measurement (mass/volume) 6.0 g/dL 6.4-8.2 Serum or plasma albumin measurement (mass/volume) 2.7 g/dL 3.2-4.5 Complete blood count (CBC) with automated white blood cell (WBC) differential - 07/02/16 05:30 Blood leukocytes automated count (number/volume) 6.3 10*3/ uL 4.3-11.0 Blood erythrocytes automated count (number/volume) 2.94 10*6 /uL 4.35-5.85 Venous blood hemoglobin measurement (mass/volume) 8.9 g/dL 11.5-16.0 Blood hematocrit (volume fraction) 28 % 35-52 Automated erythrocyte mean corpuscular volume 95 [foz_us] 80-99 Automated erythrocyte mean corpuscular hemoglobin (mass per erythrocyte) 30 pg 25-34 Automated erythrocyte mean corpuscular hemoglobin concentration measurement ( mass/volume) 32 g/dL 32-36 Automated erythrocyte distribution width ratio 19.2 % 10.0-14.5 Automated blood platelet count (count/volume) 346 10*3/uL 130-400 Automated blood platelet mean volume measurement 8.6 [foz_us ] 7.4-10.4 Automated blood neutrophils/100 leukocytes 67 % 42-75 Automated blood lymphocytes/100 leukocytes 17 % 12-44 Blood monocytes/100 leukocytes 11 % 0-12 Automated blood eosinophils/100 leukocytes 4 % 0-10 Automated blood basophils/100 leukocytes 1 % 0-10 Blood neutrophils automated count (number/volume) 4.2 10*3 1.8-7.8 Blood lymphocytes automated count (number/volume) 1.1 10*3 1.0-4.0 Blood monocytes automated count (number/volume) 0.7 10*3 0.0-1.0 Automated eosinophil count 0.3 10*3/uL 0.0-0.3 Automated blood basophil count (count/volume) 0.1 10*3/uL 0.0-0.1 Whole blood basic metabolic panel - 07/02/16 05:30 Serum or plasma sodium measurement (moles/volume) 138 mmol/ L 135-145 Serum or plasma potassium measurement (moles/volume) 3.5 mmol/L 3.6-5.0 Serum or plasma chloride measurement (moles/volume) 100 mmol /L 98-107 Carbon dioxide 28 mmol/L 21-32 Serum or plasma anion gap determination (moles/volume) 10 mmol/L 5-14 Serum or plasma urea nitrogen measurement (mass/volume) 13 mg/dL 7-18 Serum or plasma creatinine measurement (mass/volume) 1.11 mg /dL 0.60-1.30 Serum or plasma urea nitrogen/creatinine mass ratio 12 NRG Serum or plasma creatinine measurement with calculation of estimated glomerular filtration rate 51 NRG Serum or plasma glucose measurement (mass/volume) 89 mg/dL 70-105 Serum or plasma calcium measurement (mass/volume) 8.7 mg/dL 8.5-10.1 Encounters ACCT No. Visit Date/Time Discharge Status Pt. Type Provider Facility Loc./Unit Complaint [id number] 01/18/2014 16:52:00 01/18/2014 23: 59:59 CLS Outpatient SHIKHA SENA MD [id number] 01/04/2014 16:48:00 01/04/2014 23: 59:59 CLS Outpatient NATHEN HULL, SHIKHA [id number] 12/15/2013 13:44:00 12/15/2013 23: 59:59 CLS Outpatient NATHEN HULL, SHIKHA [id number] 12/08/2013 15:04:00 12/08/2013 23: 59:59 CLS Outpatient SHIKHA SENA MD [id number] 06/03/2012 15:46:00 06/03/2012 23: 59:59 CLS Outpatient BRIDGET BELL MD [id number] 01/28/2012 12:08:00 01/28/2012 23: 59:59 [place] [id number] 10/24/2011 16:53:00 10/24/2011 23: 59:59 CLS Outpatient KELSEA SANTANA APRN
== END | disposition home or self-care (01) ==
LOC: EDUNIT# 14:23 → ER 14:26
DX: T83.128A Displacement of other urinary devices and implants, initial encounter (principal); Z85.048 Personal history of other malignant neoplasm of rectum, rectosigmoid junction, and anus
CPT/HCPCS: 99282

== ENCOUNTER → 2016-06-09 | Outpatient (CLI) | payer OTHER ==
[~2016-06-09] VITALS: Ht 162.6 cm; Wt 80.7 kg
[~2016-06-09] MED LIST changes: +LIDOCAINE 1% INJ 20 ML (XYLOCAINE) VIAL INJ ONE; +cefTRIAXone 250 MG (ROCEPHIN) VIAL IM ONE
[2016-06-09 12:15] VITALS: BP 140/88
[2016-06-09 13:00] VITALS: BP 130/87
--- NOTE | 2016-06-09 13:15 | Diagnostic Imaging Report ---
EXAMINATION: Nephrostomy tube change- right Nephrostogram INDICATION: Bilateral distal ureteric obstruction with pelvic mass. The right nephrostomy tube is partially pulled out and stopped draining with redness around the tube exit site. The patient denies any fever or chills. CONSENT: Informed consent was obtained from the patient. The risks, benefits, potential complications and alternatives were reviewed and all questions answered to the patient's satisfaction. The patient's vital signs, cardiac rhythm, and pulse oximetry were observed throughout the procedure by qualified nursing personnel. Sedation: None. Other Medications: None. Contrast: 15 mL of Isovue 300. Fluoroscopy time: One minute and 45 seconds. PROCEDURE: After maximal sterile barrier technique preparation and draping, though the area of the nephrostomy tube and the tube itself, contrast injection is performed via the existing tube. This demonstrates the pigtail loop is partially pulled out into a peripheral calyx and is near completely obstructed. Under fluoroscopic guidance, a glidewire is introduced into the 12 [place] existing tube. Then exchange successfully performed. A new Mac-Loc 12 [place] nephrostomy tube is introduced over the wire and the pigtail in the is formed within the renal pelvis. The tube discharge was purulent. Total of 90 cc of purulent material was aspirated. Contrast injection was performed subsequently to confirm positioning of the tube and perform a nephrostogram. The patient tolerated the procedure well with no immediate complications. FINDINGS: Agency Cashier view of the abdomen demonstrates the the existing nephrostomy tube. The after contrast injection the pigtail appears to be within the renal pelvis. . Nephrostogram demonstrates filling defects in the renal collecting system may relate to inflammation and infection. Romero foul-smelling purulent material with total of 90 cc was aspirated and sent for cultures. Only small amount of contrast was injected to avoid over distention of an infected system. IMPRESSION: 1. Successful exchange of right nephrostomy tube with a new 12 [place] tube. 2. Nephrostogram demonstrates irregularity of the renal collecting system from inflammation/infection. 3. Romero pus returned from the right renal collecting system compatible with pyonephrosis. The patient will be given antibiotics. The findings were discussed with Dr. Braxton. Dictated by: Dictated on workstation # [id number]
== END ==
LOC: RAD 12:08
PROVIDERS: ATTEND Internal Medicine Hematology & Oncology
DX: N13.30 Unspecified hydronephrosis (principal)
CPT/HCPCS: 50431; 50435; 87077; 87088; 87186

== ENCOUNTER → 2016-06-09 | Outpatient (RCR) | payer MEDICAID, OTHER ==
[2016-03-20 14:15] LABS: BASOPHILS # (AUTO) 0.1 10^3/uL (0.0-0.1); BASOPHILS % (AUTO) 1 % (0-10); EOSINOPHILS # (AUTO) 0.3 10^3/uL (0.0-0.3); EOSINOPHILS % (AUTO) 3 % (0-10); LYMPHOCYTES # (AUTO) 0.7 X 10^3 (1.0-4.0); LYMPHOCYTES % (AUTO) 9 % (12-44); MEAN CORPUSCULAR HEMOGLOBIN 28 PG (25-34); MEAN CORPUSCULAR HGB CONC 31 G/DL (32-36); MEAN CORPUSCULAR VOLUME 90 FL (80-99); MEAN PLATELET VOLUME 8.6 FL (7.4-10.4); MONOCYTES # (AUTO) 0.6 X 10^3 (0.0-1.0); MONOCYTES % (AUTO) 7 % (0-12); NEUTROPHILS # (AUTO) 6.5 X 10^3 (1.8-7.8); NEUTROPHILS % (AUTO) 81 % (42-75); PLATELET COUNT 342 10^3/uL (130-400); RED BLOOD COUNT 3.52 10^6/uL (4.35-5.85); RED CELL DISTRIBUTION WIDTH 15.7 % (10.0-14.5); WHITE BLOOD COUNT 8.1 10^3/uL (4.3-11.0)
[2016-03-20 14:43] LABS: ALBUMIN 3.6 G/DL (3.2-4.5); BILIRUBIN,TOTAL 0.3 MG/DL (0.1-1.0); CALCIUM 8.8 MG/DL (8.5-10.1); CREATININE SERUM 0.98 MG/DL (0.60-1.30); POTASSIUM 3.8 MMOL/L (3.6-5.0); TOTAL PROTEIN 7.2 G/DL (6.4-8.2)
[2016-04-03 10:35] LABS: BASOPHILS # (AUTO) 0.1 10^3/uL (0.0-0.1); BASOPHILS % (AUTO) 0 % (0-10); EOSINOPHILS # (AUTO) 0.1 10^3/uL (0.0-0.3); EOSINOPHILS % (AUTO) 1 % (0-10); LYMPHOCYTES # (AUTO) 0.9 X 10^3 (1.0-4.0); LYMPHOCYTES % (AUTO) 5 % (12-44); MEAN CORPUSCULAR HEMOGLOBIN 27 PG (25-34); MEAN CORPUSCULAR HGB CONC 31 G/DL (32-36); MEAN CORPUSCULAR VOLUME 85 FL (80-99); MEAN PLATELET VOLUME 8.5 FL (7.4-10.4); MONOCYTES # (AUTO) 0.9 X 10^3 (0.0-1.0); MONOCYTES % (AUTO) 5 % (0-12); NEUTROPHILS # (AUTO) 14.4 X 10^3 (1.8-7.8); NEUTROPHILS % (AUTO) 88 % (42-75); PLATELET COUNT 526 10^3/uL (130-400); RED BLOOD COUNT 4.16 10^6/uL (4.35-5.85); RED CELL DISTRIBUTION WIDTH 15.7 % (10.0-14.5); WHITE BLOOD COUNT 16.3 10^3/uL (4.3-11.0)
[2016-04-03 11:20] LABS: ALBUMIN 3.8 G/DL (3.2-4.5); BILIRUBIN,TOTAL 0.6 MG/DL (0.1-1.0); CALCIUM 9.3 MG/DL (8.5-10.1); CREATININE SERUM 1.2 MG/DL (0.60-1.30); POTASSIUM 3.1 MMOL/L (3.6-5.0); TOTAL PROTEIN 7.9 G/DL (6.4-8.2)
[2016-04-09 10:55] LABS: BASOPHILS % (AUTO) 1 % (0-10); EOSINOPHILS # (AUTO) 0.2 10^3/uL (0.0-0.3); EOSINOPHILS % (AUTO) 3 % (0-10); LYMPHOCYTES # (AUTO) 0.7 X 10^3 (1.0-4.0); LYMPHOCYTES % (AUTO) 10 % (12-44); MEAN CORPUSCULAR HEMOGLOBIN 27 PG (25-34); MEAN CORPUSCULAR HGB CONC 31 G/DL (32-36); MEAN CORPUSCULAR VOLUME 87 FL (80-99); MEAN PLATELET VOLUME 7.8 FL (7.4-10.4); MONOCYTES # (AUTO) 0.4 X 10^3 (0.0-1.0); MONOCYTES % (AUTO) 6 % (0-12); NEUTROPHILS # (AUTO) 5.5 X 10^3 (1.8-7.8); NEUTROPHILS % (AUTO) 80 % (42-75); PLATELET COUNT 363 10^3/uL (130-400); RED BLOOD COUNT 3.41 10^6/uL (4.35-5.85); RED CELL DISTRIBUTION WIDTH 15.8 % (10.0-14.5); WHITE BLOOD COUNT 6.9 10^3/uL (4.3-11.0)
[2016-04-09 11:22] LABS: ALBUMIN 3.2 G/DL (3.2-4.5); BILIRUBIN,TOTAL 0.2 MG/DL (0.1-1.0); CALCIUM 9.2 MG/DL (8.5-10.1); CREATININE SERUM 0.98 MG/DL (0.60-1.30); MAGNESIUM 1.5 MG/DL (1.8-2.4); POTASSIUM 4.4 MMOL/L (3.6-5.0)
[2016-04-30 10:54] LABS: BASOPHILS % (AUTO) 0 % (0-10); EOSINOPHILS % (AUTO) 2 % (0-10); LYMPHOCYTES # (AUTO) 0.6 X 10^3 (1.0-4.0); LYMPHOCYTES % (AUTO) 23 % (12-44); MEAN CORPUSCULAR HEMOGLOBIN 26 PG (25-34); MEAN CORPUSCULAR HGB CONC 31 G/DL (32-36); MEAN CORPUSCULAR VOLUME 85 FL (80-99); MEAN PLATELET VOLUME 8.4 FL (7.4-10.4); MONOCYTES # (AUTO) 0.4 X 10^3 (0.0-1.0); MONOCYTES % (AUTO) 16 % (0-12); NEUTROPHILS # (AUTO) 1.5 X 10^3 (1.8-7.8); NEUTROPHILS % (AUTO) 59 % (42-75); PLATELET COUNT 342 10^3/uL (130-400); RED BLOOD COUNT 2.89 10^6/uL (4.35-5.85); RED CELL DISTRIBUTION WIDTH 17.3 % (10.0-14.5); WHITE BLOOD COUNT 2.6 10^3/uL (4.3-11.0)
[2016-04-30 11:33] LABS: ALBUMIN 3.3 G/DL (3.2-4.5); BILIRUBIN,TOTAL 0.5 MG/DL (0.1-1.0); CALCIUM 8.9 MG/DL (8.5-10.1); CREATININE SERUM 0.97 MG/DL (0.60-1.30); MAGNESIUM 1.6 MG/DL (1.8-2.4); POTASSIUM 3.7 MMOL/L (3.6-5.0); TOTAL PROTEIN 6.8 G/DL (6.4-8.2)
[2016-06-02 12:04] LABS: BASOPHILS % (AUTO) 0 % (0-10); EOSINOPHILS % (AUTO) 0 % (0-10); LYMPHOCYTES # (AUTO) 0.8 X 10^3 (1.0-4.0); LYMPHOCYTES % (AUTO) 17 % (12-44); MEAN CORPUSCULAR HEMOGLOBIN 26 PG (25-34); MEAN CORPUSCULAR HGB CONC 30 G/DL (32-36); MEAN CORPUSCULAR VOLUME 88 FL (80-99); MONOCYTES # (AUTO) 0.4 X 10^3 (0.0-1.0); MONOCYTES % (AUTO) 8 % (0-12); NEUTROPHILS # (AUTO) 3.7 X 10^3 (1.8-7.8); NEUTROPHILS % (AUTO) 75 % (42-75); PLATELET COUNT 483 10^3/uL (130-400); RED BLOOD COUNT 2.59 10^6/uL (4.35-5.85); RED CELL DISTRIBUTION WIDTH 22.9 % (10.0-14.5)
[2016-06-02 12:41] LABS: ALANINE AMINOTRANSFERASE 9 U/L (0-55); ALBUMIN 3.3 G/DL (3.2-4.5); ANION GAP 9 MMOL/L (5-14); ASPARTATE AMINO TRANSFERASE 13 U/L (5-34); BILIRUBIN,TOTAL 0.4 MG/DL (0.1-1.0); BLOOD UREA NITROGEN 7 MG/DL (7-18); BUN/CREATININE RATIO 7; CARBON DIOXIDE 24 MMOL/L (21-32); CHLORIDE 103 MMOL/L (98-107); CREATININE SERUM 0.96 MG/DL (0.60-1.30); GFR ESTIMATED > 60; GLUCOSE 113 MG/DL (70-105); POTASSIUM 3.6 MMOL/L (3.6-5.0); SODIUM 136 MMOL/L (135-145); TOTAL PROTEIN 7.4 G/DL (6.4-8.2)
[~2016-06-09] MED LIST changes: +ACETAMINOPHEN 500 MG TAB (TYLENOL) CANCER CTR ONE; +ALTEPLASE 2 MG (CATHFLO) CANCER CENTER IV ONE; +CEFTRIAXONE IV ONE; -LIDOCAINE 1% INJ 20 ML (XYLOCAINE) VIAL INJ ONE; +NS IV 500 ML (CANCER CENTER) 500 ML ONE; +NS IV ONE; +ONDANSETRON 8 MG, DEXAMETHASONE 4 MG/NS 50 ML IVPB (Cancer Ctr) IV SCH; -cefTRIAXone 250 MG (ROCEPHIN) VIAL IM ONE
== END | disposition home or self-care (01) ==
LOC: ONC 03-11 13:52
PROVIDERS: ATTEND Internal Medicine Hematology & Oncology
DX: C20 Malignant neoplasm of rectum (principal); I10 Essential (primary) hypertension; Z79.899 Other long term (current) drug therapy; Z92.21 Personal history of antineoplastic chemotherapy; Z92.3 Personal history of irradiation
CPT/HCPCS: 36415; 36430; 36591; 36593; 80053; 82378; 83735; 85025; 86850; 86900; 86901; 86920; 96365; 99213

== ENCOUNTER 2016-06-26 17:18 | Inpatient (IN) | payer OTHER ==
[~2016-06-26] VITALS: Ht 162.6 cm; Wt 75.0 kg
[~2016-06-26 17:18] MED LIST changes: -ACETAMINOPHEN 500 MG TAB (TYLENOL) CANCER CTR ONE; -ALTEPLASE 2 MG (CATHFLO) CANCER CENTER IV ONE; -CEFTRIAXONE IV ONE; -NS IV 500 ML (CANCER CENTER) 500 ML ONE; -NS IV ONE; -ONDA8TAB12 PO; -ONDANSETRON 8 MG, DEXAMETHASONE 4 MG/NS 50 ML IVPB (Cancer Ctr) IV SCH; -PANT40TA3 PO; -SORB1SOL2 PO; -SULF1TAB35 PO; -TRIF1TAB7 PO
[2016-06-26] MEDS ORDERED: MAGNESIUM 1 GM/100 ML IVPB 100 ML IV ONE (17:30)
[2016-06-26] MEDS ORDERED: ONDANSETRON 4 MG/2 ML (SDV) Z0FRAN IVP PRN (17:30)
[2016-06-26 17:35] VITALS: BP 120/84
[2016-06-26] MEDS: NS IV 1000 ML 1,000 ML IV SCH (18:00)
[2016-06-26 18:01] LABS: BILIRUBIN,URINE NEGATIVE (NEGATIVE); KETONES,URINE NEGATIVE (NEGATIVE); LEUKOCYTE ESTERASE ,URINE 2+ (NEGATIVE); NITRITE,URINE NEGATIVE (NEGATIVE); PH,URINE 7 (5-9); PROTEIN,URINE 4+ (NEGATIVE); UROBILINOGEN,URINE NORMAL (NORMAL)
[2016-06-26] MEDS: POTASSIUM CL 10MEQ/50ML IVPB 50 ML IV SCH ×2 (18:04→19:27)
[2016-06-26] MEDS: morphine INJ 4 MG/ML 1 ML (VIAL/SYRINGE) IVP PRN (18:13)
[2016-06-26 18:24] LABS: WBC,URINE >100 /HPF
[2016-06-26] MEDS ORDERED: PHARMACY TO DOSE IV SCH (19:15)
[2016-06-26] MEDS ORDERED: CATHETER FLUSH 10 ML SYR IV PRN (19:45)
[2016-06-26 20:25] VITALS: BP 122/76
[2016-06-26] MEDS: morphine ER 100 MG (MS CONTIN) TAB PO SCH (20:43)
[2016-06-26] MEDS: morphine ER 30 MG (MS CONTIN) TAB PO SCH (20:43)
[2016-06-26] MEDS: cefTRIAXone INJECTION 1,000 MG in NS (IVPB) 50 ML IV SCH (20:43)
--- NOTE | 2016-06-26 22:45 | HISTORY AND PHYSICAL ---
DATE OF SERVICE: 06/26/2016 Patient is being admitted to Room 431. PRESENTING COMPLAINTS: Nausea and vomiting. HISTORY OF PRESENT ILLNESS: The patient is a 55-year-old female with history of metastatic rectal cancer and on outpatient chemotherapy with Lonsurf. The patient mentioned that she started becoming nauseated approximately 4 days ago and has not been able to eat or drink much during the last 4 days. She was becoming weaker and the nausea was not getting under control. Hence she was brought to the Cancer Center by her family. She was evaluated and baseline labs were obtained which showed evidence of acute on chronic renal failure most likely due to the nausea, vomiting and clinical dehydration. Because of this it was decided to admit her to the hospital for further management. PAST MEDICAL HISTORY: 1. Significant for rectal cancer which was initially diagnosed in 08/2011 and the patient underwent neoadjuvant chemotherapy and radiation therapy followed by low anterior resection in 11/2011 with diagnosis of Stage-2 rectal cancer. This was followed by adjuvant chemotherapy with Xeloda regimen for 6 months with reversal of ileostomy in 10/2012. She had recurrence at the anastomotic site diagnosed in 09/2013 and underwent AP resection with permanent colostomy placement. She underwent chemotherapy with XELOX regimen for 8 cycles but had evidence of metastatic disease diagnosed in 05/2014 in the pelvis. At this point chemotherapy was changed to FOLFIRI plus bevacizumab regimen on a palliative basis for 7 cycles which was stopped due to side effects. She took chemotherapy with Vectibix for 1 cycle in 09/2014. Stopped due to significant rash. In 07/2015 she was admitted to the hospital with acute renal failure and was found to have bilateral ureteral obstruction due to progressive cancer. She had bilateral percutaneous nephrostomy tube placement and was started on palliative chemotherapy with Vectibix regimen followed by Larry recently. 2. She has longstanding history of hypertension and is being managed on an outpatient basis for this. PAST SURGICAL HISTORY: 1. Tubal ligation in the distant past. 2. Low anterior resection in 2011 followed by AP resection in 2013. 3. Bilateral nephrostomy tube placement in 07/2015. SOCIAL HISTORY: Patient is and lives in [place], [place]. 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 She quit in 2014. No history of tobacco, alcohol or other recreational drug use. FAMILY HISTORY: Unremarkable with no major malignancies in the family that the patient knows of. PHYSICAL EXAMINATION: GENERAL APPEARANCE: The physical examination showed an elderly female weak appearing in moderate distress due to nausea and pain. HEENT: Normocephalic. Extraocular muscles intact. Conjunctiva pale. Oral mucosa is dry. NECK: Supple with no JVD. No cervical, supraclavicular or axillary lymphadenopathy palpable. CHEST WALL: Port present. PULMONARY: Lungs are fairly clear without wheezes or rales. CARDIOVASCULAR: Borderline tachycardic, regular with no murmurs or gallops heard. ABDOMEN: Exam showed left lower quadrant colostomy present. Bilateral percutaneous nephrostomy tubes present with minimal to no drainage noted at the time of evaluation. EXTREMITIES: Showed trace edema in both lower extremities. Upper extremities showed no edema. LABORATORY DATA: CBC done today at the [facility] showed WBC 9.2, hemoglobin 8.8, platelet count 446,000 with neutrophil count of 7.2. Chemistry panel showed sodium level of 130, potassium 2.8, chloride 76, C02 36 with BUN of 30 and creatinine 2.78. GFR of 18 ml/minute. Liver function studies were within normal limits. We have not been able to collect urine from either nephrostomy tubes for UA as the output is narrow. IMPRESSION: 1. Acute on chronic renal failure. 2. Nausea, vomiting and dehydration causing the above. 3. Metastatic rectal cancer on outpatient chemotherapy with Loncullenrf. PLAN: 1. I will admit the patient to the hospital and hydrate her. She has received 1 liter of normal saline over 1 hour at the [facility]. Following this I will change the rate to 100 mL/hour. 2. I will replace 20 mEq of potassium and 1 gram of magnesium IV because of hypokalemia and longstanding history of hypomagnesemia. 3. I will repeat the lab work tomorrow morning. 4. I will hold home medications except longacting morphine at 130 mg twice daily. I will use morphine 3 mg IV every 2 hours as needed for breakthrough pain. 5. I discussed the code status with the patient and her family and we will order DNR during her hospital stay. The patient understands the poor prognosis from her cancer and was agreeable with this. 6. Control nausea with Zofran 8 mg IV every 6 hours as needed. 7. I will start the patient on clear liquid diet and advance as tolerated. 8. I will not use low molecular weight heparin for DVT prophylaxis because of her renal failure and we will use sequential compression device for VTE prophylaxis. 9. Once the urinalysis results are available and if there is evidence of infection we will start her on appropriate medication dosed for her renal function. We will obtain the help of the pharmacy to calculate the dose. 10. Her overall prognosis is guarded. Job ID: [id number] DocumentID: [id number] Dictated Date: 06/26/2016 17:57:28 Cesspool Cleaner Date: 06/26/2016 22:44:47 Dictated By: AMY MEZA MD [facility]
[2016-06-27] VITALS (11 sets, daily range): BP systolic 101–133; BP diastolic 65–85
[2016-06-27] MEDS: NS IV 1000 ML 1,000 ML IV SCH ×3 (04:48→23:49)
[2016-06-27 06:12] LABS: ALBUMIN 3.1 G/DL (3.2-4.5); BILIRUBIN,TOTAL 0.4 MG/DL (0.1-1.0); CALCIUM 8.3 MG/DL (8.5-10.1); CREATININE SERUM 1.8 MG/DL (0.60-1.30); MAGNESIUM 1.9 MG/DL (1.8-2.4); POTASSIUM 3.1 MMOL/L (3.6-5.0); TOTAL PROTEIN 6.8 G/DL (6.4-8.2)
[2016-06-27 06:18] LABS: BASOPHILS % (AUTO) 0 % (0-10); EOSINOPHILS # (AUTO) 0.1 10^3/uL (0.0-0.3); EOSINOPHILS % (AUTO) 2 % (0-10); LYMPHOCYTES # (AUTO) 0.9 X 10^3 (1.0-4.0); LYMPHOCYTES % (AUTO) 11 % (12-44); MEAN CORPUSCULAR HEMOGLOBIN 30 PG (25-34); MEAN CORPUSCULAR HGB CONC 32 G/DL (32-36); MEAN CORPUSCULAR VOLUME 96 FL (80-99); MEAN PLATELET VOLUME 8.8 FL (7.4-10.4); MONOCYTES # (AUTO) 0.5 X 10^3 (0.0-1.0); MONOCYTES % (AUTO) 6 % (0-12); NEUTROPHILS % (AUTO) 80 % (42-75); PLATELET COUNT 381 10^3/uL (130-400); RED BLOOD COUNT 2.26 10^6/uL (4.35-5.85); RED CELL DISTRIBUTION WIDTH 20.6 % (10.0-14.5); WHITE BLOOD COUNT 7.5 10^3/uL (4.3-11.0)
[2016-06-27] MEDS ORDERED: ACETAMINOPHEN 500 MG TAB (TYLENOL) PO NR (06:45)
[2016-06-27] MEDS ORDERED: diphenhydrAMINE 50 MG/ML INJ (BENADRYL) IVP NR (06:45)
[2016-06-27] MEDS: morphine ER 30 MG (MS CONTIN) TAB PO SCH ×2 (07:55→20:15)
[2016-06-27] MEDS: morphine ER 100 MG (MS CONTIN) TAB PO SCH ×2 (07:55→20:15)
[2016-06-27] MEDS ORDERED: MORP-34 PO (08:58)
[2016-06-27] MEDS ORDERED: ONDA8TAB12 PO (08:58)
[2016-06-27] MEDS ORDERED: TRIF1TAB7 PO (08:58)
[2016-06-27] MEDS ORDERED: PANTOPRAZOLE 40 MG/10 ML (PROTONIX) VIAL IV SCH (09:00)
[2016-06-27] MEDS ORDERED: SORB1SOL2 PO (09:06)
--- NOTE | 2016-06-27 13:38 | Oncology Progress Note ---
Subjective Subjective/Events-last exam Cover for Dr Joseph Pt is feeling much today after IVF and antibiotics. "I can eat something today. " She is getting RBC transfusion today. Data Review Labs Laboratory Tests 06/27/16 05:44 Laboratory Tests 06/26/16 17:25: Urine Color REDH, Urine Clarity BLOODYH, Urine Specific [place] 1.010L, Urine Leukocyte Esterase 2+H, Urine RBC (Auto) 5+H, Urine RBC TNTCH, Urine WBC >100H, Urine Bacteria MODERATEH 06/27/16 05:44: Red Blood Count 2.26L, Hemoglobin 6.8#*L, Hematocrit 22L, Red Cell Distribution Width 20.6H, Neutrophils (%) (Auto) 80H, Lymphocytes (%) (Auto) 11L, Lymphocytes # (Auto) 0.9L, Sodium Level 132L, Potassium Level 3.1L, Chloride Level 86L, Carbon Dioxide Level 33H, Blood Urea Nitrogen 24H, Creatinine 1.80H, Calcium Level 8.3L, Albumin 3.1L Physical Exam Vital Signs Vital Sign - Last 12Hours 06/26/16 17:35 Temp 98.5 Pulse 108 Resp 18 B/P (MAP) 120/84 Pulse Ox 99 O2 Delivery Room Air Capillary Refill : Less Than 3 Seconds General Appearance: No Apparent Distress HEENT: PERRL/EOMI Neck: Non Tender, Supple Respiratory: Lungs Clear, No Accessory Muscle Use, No Respiratory Distress Cardiovascular: Regular Rate, Rhythm, No JVD Gastrointestinal: Non Tender, Soft Genital/Rectal: Other (bilateral percutaneous urethral drainage) Extremity: Non Tender, No Calf Tenderness Neurologic/Psychiatric: Alert, Oriented x3 Impression & Plan Impression & Plan IMPRESSION: 1. Acute on chronic renal failure. 2. Nausea, vomiting and dehydration 3. Metastatic rectal cancer on outpatient chemotherapy with Lonsurf. 4. UTI 5. longstanding history of hypomagnesemia 6. Anemia Hb 6.8 PLAN: Transfuse 2 units of RBC today 1. Continue IVF at the rate 100 mL/hour but will slow down at night so that patient can sleep better. 2. Replace electrolytes accordingly 3. IV Rocephine. pharmacy dosing. Will modify according to the sensitivity results. 4. Dr. Joseph hold off her home medications except longacting morphine at 130 mg twice daily. Will use morphine 3 mg IV every 2 hours as needed for breakthrough pain. 5. Pt is DNR during her hospital stay per Dr Joseph. The patient understands the poor prognosis from her cancer and was agreeable with this. 6. Control nausea with Zofran 8 mg IV every 6 hours as needed. 7. Advance diet as tolerated. 8. Will NOT use low molecular weight heparin for DVT prophylaxis because of her renal failure and we will use sequential compression device for VTE prophylaxis. 9. Her overall prognosis is guarded. Clinical Quality Measures DVT/VTE Risk/Contraindication: Risk Factor Score Per Nursin RFS Level Per Nursing on Admit: 4+=Very High VIANEY YEH MD Jun 27, 2016 13:38
[2016-06-27] MEDS: POTASSIUM CL 10MEQ/50ML IVPB 50 ML IV SCH ×4 (15:23→18:47)
[2016-06-27] MEDS: morphine INJ 4 MG/ML 1 ML (VIAL/SYRINGE) IVP PRN ×2 (15:23→22:16)
[2016-06-27] MEDS: PANTOPRAZOLE 40 MG (PROTONIX) TAB PO SCH (18:47)
[2016-06-27] MEDS: cefTRIAXone INJECTION 1,000 MG in NS (IVPB) 50 ML IV SCH (19:49)
[2016-06-28] VITALS: BP 125/86
[2016-06-28] MEDS: morphine INJ 4 MG/ML 1 ML (VIAL/SYRINGE) IVP PRN ×5 (00:10→12:15)
[2016-06-28] MEDS: PANTOPRAZOLE 40 MG (PROTONIX) TAB PO SCH (05:26)
[2016-06-28 06:07] LABS: BASOPHILS % (AUTO) 1 % (0-10); EOSINOPHILS # (AUTO) 0.3 10^3/uL (0.0-0.3); EOSINOPHILS % (AUTO) 4 % (0-10); LYMPHOCYTES # (AUTO) 1.1 X 10^3 (1.0-4.0); LYMPHOCYTES % (AUTO) 17 % (12-44); MEAN CORPUSCULAR HEMOGLOBIN 30 PG (25-34); MEAN CORPUSCULAR HGB CONC 32 G/DL (32-36); MEAN CORPUSCULAR VOLUME 93 FL (80-99); MEAN PLATELET VOLUME 8.7 FL (7.4-10.4); MONOCYTES # (AUTO) 0.5 X 10^3 (0.0-1.0); MONOCYTES % (AUTO) 7 % (0-12); NEUTROPHILS # (AUTO) 4.8 X 10^3 (1.8-7.8); NEUTROPHILS % (AUTO) 72 % (42-75); PLATELET COUNT 305 10^3/uL (130-400); RED BLOOD COUNT 2.87 10^6/uL (4.35-5.85); RED CELL DISTRIBUTION WIDTH 20.3 % (10.0-14.5); WHITE BLOOD COUNT 6.7 10^3/uL (4.3-11.0)
[2016-06-28 06:22] LABS: CALCIUM 8.3 MG/DL (8.5-10.1); CREATININE SERUM 1.34 MG/DL (0.60-1.30)
[2016-06-28 08:20] VITALS: BP 117/79
[2016-06-28] MEDS: morphine ER 30 MG (MS CONTIN) TAB PO SCH ×2 (08:31→19:29)
[2016-06-28] MEDS: morphine ER 100 MG (MS CONTIN) TAB PO SCH ×2 (08:31→19:29)
[2016-06-28] MEDS: NS IV 1000 ML 1,000 ML IV SCH ×2 (10:39→14:11)
[2016-06-28 11:49] VITALS: BP 114/76
[2016-06-28] MEDS: POTASSIUM CL 10MEQ/50ML IVPB 50 ML IV SCH ×4 (15:08→18:43)
[2016-06-28 16:00] VITALS: BP 127/81
[2016-06-28] MEDS: cefTRIAXone INJECTION 1,000 MG in NS (IVPB) 50 ML IV SCH (20:19)
[2016-06-29 00:33] VITALS: BP 115/72
[2016-06-29] MEDS: NS IV 1000 ML 1,000 ML IV SCH ×2 (05:44→12:18)
[2016-06-29] MEDS: PANTOPRAZOLE 40 MG (PROTONIX) TAB PO SCH (06:21)
--- NOTE | 2016-06-29 07:44 | Oncology Progress Note ---
Subjective Subjective/Events-last exam Doing well. No new issues able to eat better Data Review Labs Laboratory Tests 06/26/16 17:25: Urine Color REDH, Urine Clarity BLOODYH, Urine Specific [place] 1.010L, Urine Leukocyte Esterase 2+H, Urine RBC (Auto) 5+H, Urine RBC TNTCH, Urine WBC >100H, Urine Bacteria MODERATEH 06/27/16 05:44: Red Blood Count 2.26L, Hemoglobin 6.8#*L, Hematocrit 22L, Red Cell Distribution Width 20.6H, Neutrophils (%) (Auto) 80H, Lymphocytes (%) (Auto) 11L, Lymphocytes # (Auto) 0.9L, Sodium Level 132L, Potassium Level 3.1L, Chloride Level 86L, Carbon Dioxide Level 33H, Blood Urea Nitrogen 24H, Creatinine 1.80H, Calcium Level 8.3L, Albumin 3.1L 06/28/16 05:25: Red Blood Count 2.87L, Hemoglobin 8.5#L, Hematocrit 27L, Red Cell Distribution Width 20.3H, Sodium Level 134L, Potassium Level 3.0L, Chloride Level 95L, Blood Urea Nitrogen 19H, Creatinine 1.34H, Calcium Level 8.3L Physical Exam Vital Signs Vital Sign - Last 12Hours 06/26/16 17:35 Temp 98.5 Pulse 108 Resp 18 B/P (MAP) 120/84 Pulse Ox 99 O2 Delivery Room Air Capillary Refill : Less Than 3 Seconds General Appearance: No Apparent Distress Neck: Non Tender, Supple Respiratory: Lungs Clear, No Accessory Muscle Use, No Respiratory Distress Cardiovascular: Regular Rate, Rhythm Gastrointestinal: Non Tender, Soft, Other Genital/Rectal: Other Neurologic/Psychiatric: Alert, Oriented x3 Impression & Plan Impression & Plan IMPRESSION: 1. Acute on chronic renal failure. 2. Nausea, vomiting and dehydration 3. Metastatic rectal cancer on outpatient chemotherapy with Lonsurf. 4. UTI, serresa macreses sensitive to Ceftriaxone 5. longstanding history of hypomagnesemia 6. Anemia s/p 2 unit RBC PLAN: 1. Continue IVF at the rate 100 mL/hour but will slow down at night so that patient can sleep better. 2. Replace electrolytes accordingly 3. IV Rocephin. pharmacy dosing. 4. Resume her home medications. 5. Pt is DNR during her hospital stay per Dr Joseph. The patient understands the poor prognosis from her cancer and was agreeable with this. 6. Control nausea with Zofran 8 mg IV every 6 hours as needed. 7. Advance diet as tolerated. 8. Will NOT use low molecular weight heparin for DVT prophylaxis because of her renal failure and we will use sequential compression device for VTE prophylaxis. 9. Her overall prognosis is guarded. 10. Dr Joseph to discuss discharge plan on Thursday Clinical Quality Measures DVT/VTE Risk/Contraindication: Risk Factor Score Per Nursin RFS Level Per Nursing on Admit: 4+=Very High VIANEY YEH MD Jun 29, 2016 07:44
--- NOTE | 2016-06-29 07:51 | Oncology Progress Note ---
Subjective Subjective/Events-last exam THIS NOTE IS FOR 06-28-2016. I HAVE TROUBLE TO GET ON THE COMPUTER. Pt had trouble to sleep the night before because of pain. IV morphine is not working as good as Oxycodone which was taking at home. Data Review Labs Laboratory Tests 06/26/16 17:25: Urine Color REDH, Urine Clarity BLOODYH, Urine Specific [place] 1.010L, Urine Leukocyte Esterase 2+H, Urine RBC (Auto) 5+H, Urine RBC TNTCH, Urine WBC >100H, Urine Bacteria MODERATEH 06/27/16 05:44: Red Blood Count 2.26L, Hemoglobin 6.8#*L, Hematocrit 22L, Red Cell Distribution Width 20.6H, Neutrophils (%) (Auto) 80H, Lymphocytes (%) (Auto) 11L, Lymphocytes # (Auto) 0.9L, Sodium Level 132L, Potassium Level 3.1L, Chloride Level 86L, Carbon Dioxide Level 33H, Blood Urea Nitrogen 24H, Creatinine 1.80H, Calcium Level 8.3L, Albumin 3.1L 06/28/16 05:25: Red Blood Count 2.87L, Hemoglobin 8.5#L, Hematocrit 27L, Red Cell Distribution Width 20.3H, Sodium Level 134L, Potassium Level 3.0L, Chloride Level 95L, Blood Urea Nitrogen 19H, Creatinine 1.34H, Calcium Level 8.3L Physical Exam Vital Signs Vital Sign - Last 12Hours 06/26/16 17:35 Temp 98.5 Pulse 108 Resp 18 B/P (MAP) 120/84 Pulse Ox 99 O2 Delivery Room Air Capillary Refill : Less Than 3 Seconds General Appearance: No Apparent Distress HEENT: PERRL/EOMI Neck: Non Tender, Supple Respiratory: Lungs Clear, No Accessory Muscle Use, No Respiratory Distress Cardiovascular: Regular Rate, Rhythm Gastrointestinal: Non Tender, Soft, Other (bilateral urethral percutaneous cathters) Extremity: Swelling Neurologic/Psychiatric: Alert, Oriented x3 Impression & Plan Impression & Plan IMPRESSION: 1. Acute on chronic renal failure. much improved. Cr 1.34 today. 2. Nausea, vomiting and dehydration, better 3. Metastatic rectal cancer on outpatient chemotherapy with Lonsurf. 4. UTI, serresa macreses sensitive to Ceftriaxone 5. longstanding history of hypomagnesemia 6. Anemia s/p 2 unit RBC PLAN: 1. Continue IVF at the rate 100 mL/hour but will slow down at night so that patient can sleep better. 2. Replace electrolytes accordingly 3. IV Rocephin. pharmacy dosing. 4. Resume her home medications including Oxycodone 5. Pt is DNR during her hospital stay per Dr Joseph. The patient understands the poor prognosis from her cancer and was agreeable with this. 6. Control nausea with Zofran 8 mg IV every 6 hours as needed. 7. Advance diet as tolerated. 8. Will NOT use low molecular weight heparin for DVT prophylaxis because of her renal failure and we will use sequential compression device for VTE prophylaxis. 9. Her overall prognosis is guarded. Clinical Quality Measures DVT/VTE Risk/Contraindication: Risk Factor Score Per Nursin RFS Level Per Nursing on Admit: 4+=Very High VIANEY YEH MD Jun 29, 2016 07:51
[2016-06-29 08:00] VITALS: BP 120/85
[2016-06-29] MEDS: morphine ER 100 MG (MS CONTIN) TAB PO SCH ×2 (08:26→20:02)
[2016-06-29] MEDS: morphine ER 30 MG (MS CONTIN) TAB PO SCH ×2 (08:26→20:02)
[2016-06-29 08:53] LABS: BASOPHILS # (AUTO) 0.1 10^3/uL (0.0-0.1); BASOPHILS % (AUTO) 1 % (0-10); EOSINOPHILS # (AUTO) 0.3 10^3/uL (0.0-0.3); EOSINOPHILS % (AUTO) 5 % (0-10); LYMPHOCYTES % (AUTO) 15 % (12-44); MEAN CORPUSCULAR HEMOGLOBIN 30 PG (25-34); MEAN CORPUSCULAR HGB CONC 32 G/DL (32-36); MEAN CORPUSCULAR VOLUME 95 FL (80-99); MEAN PLATELET VOLUME 8.8 FL (7.4-10.4); MONOCYTES # (AUTO) 0.6 X 10^3 (0.0-1.0); MONOCYTES % (AUTO) 9 % (0-12); NEUTROPHILS # (AUTO) 4.6 X 10^3 (1.8-7.8); NEUTROPHILS % (AUTO) 70 % (42-75); PLATELET COUNT 305 10^3/uL (130-400); RED BLOOD COUNT 3.18 10^6/uL (4.35-5.85); RED CELL DISTRIBUTION WIDTH 20.2 % (10.0-14.5); WHITE BLOOD COUNT 6.6 10^3/uL (4.3-11.0)
[2016-06-29 09:15] LABS: ALBUMIN 3.2 G/DL (3.2-4.5); BILIRUBIN,TOTAL 0.6 MG/DL (0.1-1.0); CALCIUM 8.7 MG/DL (8.5-10.1); CREATININE SERUM 1.29 MG/DL (0.60-1.30); POTASSIUM 3.4 MMOL/L (3.6-5.0); TOTAL PROTEIN 7.2 G/DL (6.4-8.2)
[2016-06-29] MEDS: SORBITOL 70% 30 ML UNIT DOSE CUP PO PRN (12:18)
[2016-06-29 16:00] VITALS: BP 112/74
[2016-06-29] MEDS: cefTRIAXone INJECTION 1,000 MG in NS (IVPB) 50 ML IV SCH (20:02)
[2016-06-30 00:07] VITALS: BP 132/84
[2016-06-30] MEDS: morphine INJ 4 MG/ML 1 ML (VIAL/SYRINGE) IVP PRN (00:24)
[2016-06-30] MEDS: NS IV 1000 ML 1,000 ML IV SCH ×2 (02:28→06:43)
[2016-06-30] MEDS: PANTOPRAZOLE 40 MG (PROTONIX) TAB PO SCH (06:05)
[2016-06-30 08:14] VITALS: BP 126/85
[2016-06-30] MEDS: morphine ER 30 MG (MS CONTIN) TAB PO SCH ×2 (08:37→20:03)
[2016-06-30] MEDS: morphine ER 100 MG (MS CONTIN) TAB PO SCH ×2 (08:37→20:03)
[2016-06-30 16:00] VITALS: BP 149/96
--- NOTE | 2016-06-30 16:30 | Progress Note-Standard ---
Standard Progress Note Progress Notes/Assess & Plan Progress/Assessment & Plan 55-year-old female with metastatic rectal cancer who was on outpatient chemotherapy with oral Lonsurf 3 cycles with increasing tumor markers. Patient admitted with the nausea, vomiting, dehydration and acute renal failure. She was hydrated aggressively with appropriate antiemetics. Patient also has bilateral nephrostomy tubes due to progressive tumor and cultures were obtained from each side. These were positive for gram-negative rods and she was started on Rocephin once daily with good clinical improvement. Patient is not nauseated now and is able to eat and drink. Her renal function has continued to improve over the past 3 days. She also required 2 units of packed red blood cell transfusion because of significant anemia. Physical examination today showed an elderly female who is in no acute distress and sitting in the chair. Nursing staff indicated that she was able to ambulate in the hallway. Oral mucosa moist. Lungs clear to auscultation without wheezes or rales. Cardiovascular exam was regular in rate and rhythm without murmurs. Extremities with trace edema. No labs done today. GFR was 43 mL per minute yesterday when compared to 18 mL per minute on admission. A/P: 1. Acute on chronic renal failure due to nausea, vomiting and dehydration. Clinically improved with IV hydration and PRBC transfusion. I would discontinue IV fluids today. Monitor labs in a.m. 2. Metastatic rectal cancer with progressive disease by worsening tumor markers. We have discussed with the patient that there are no good treatment options available at this point. I discussed the role of best supportive care with hospice and patient was interested in this. I will consult social studies teacher to make appropriate arrangements. Patient does have bilateral nephrostomy tubes which needs to be replaced on a monthly basis. She is due for this and I will consult Dr. Schneider to do this tomorrow prior to discharge. 3. I will plan on changing IV antibiotics to oral agents with the help of pharmacy. AMY MEZA June 30, 2016 16:30
[2016-06-30] MEDS: cefTRIAXone INJECTION 1,000 MG in NS (IVPB) 50 ML IV SCH (19:58)
[2016-07-01] VITALS: BP 121/75
[2016-07-01] MEDS: PANTOPRAZOLE 40 MG (PROTONIX) TAB PO SCH (05:49)
[2016-07-01 06:02] LABS: BASOPHILS % (AUTO) 1 % (0-10); EOSINOPHILS # (AUTO) 0.4 10^3/uL (0.0-0.3); EOSINOPHILS % (AUTO) 6 % (0-10); LYMPHOCYTES % (AUTO) 14 % (12-44); MEAN CORPUSCULAR HEMOGLOBIN 30 PG (25-34); MEAN CORPUSCULAR HGB CONC 31 G/DL (32-36); MEAN CORPUSCULAR VOLUME 96 FL (80-99); MEAN PLATELET VOLUME 8.5 FL (7.4-10.4); MONOCYTES # (AUTO) 0.8 X 10^3 (0.0-1.0); MONOCYTES % (AUTO) 12 % (0-12); NEUTROPHILS # (AUTO) 4.9 X 10^3 (1.8-7.8); NEUTROPHILS % (AUTO) 69 % (42-75); PLATELET COUNT 330 10^3/uL (130-400); RED BLOOD COUNT 2.92 10^6/uL (4.35-5.85); RED CELL DISTRIBUTION WIDTH 19.9 % (10.0-14.5); WHITE BLOOD COUNT 7.2 10^3/uL (4.3-11.0)
[2016-07-01 06:25] LABS: ALBUMIN 2.7 G/DL (3.2-4.5); BILIRUBIN,TOTAL 0.4 MG/DL (0.1-1.0); CALCIUM 8.4 MG/DL (8.5-10.1); CREATININE SERUM 1.11 MG/DL (0.60-1.30); POTASSIUM 3.6 MMOL/L (3.6-5.0)
[2016-07-01 08:00] VITALS: BP 114/73
[2016-07-01] MEDS: morphine ER 30 MG (MS CONTIN) TAB PO SCH ×2 (08:04→21:34)
[2016-07-01] MEDS: morphine ER 100 MG (MS CONTIN) TAB PO SCH ×2 (08:04→21:34)
[2016-07-01] MEDS: SORBITOL 70% 30 ML UNIT DOSE CUP PO PRN (12:32)
[2016-07-01] MEDS: TRIM/SULFAMETH 160/800 (SEPTRA DS) TAB PO SCH (16:07)
--- NOTE | 2016-07-01 16:09 | Progress Note-Standard ---
Standard Progress Note Progress Notes/Assess & Plan Progress/Assessment & Plan 55-year-old female with metastatic rectal cancer admitted with the nausea, vomiting, dehydration and acute renal failure. She was hydrated aggressively with appropriate antiemetics. Patient also has bilateral nephrostomy tubes due to progressive tumor causing obstruction. Urine cultures were obtained from each side which were positive for gram-negative rods and she was started on Rocephin once daily with good clinical improvement. Final microbiology results showing 2 organisms both of which are sensitive to Bactrim. Patient is able to eat and drink. Her renal function has continued to improve with GFR 50 ml/ minute today. She c/o increased perineal pain and is needing breakthrough medication regularly. Physical examination today showed an elderly female who is in mild distress due to pain and sitting in the chair. Oral mucosa moist. Lungs clear to auscultation without wheezes or rales. Cardiovascular exam was regular in rate and rhythm without murmurs. Abdomen with a colostomy and bilateral nephrostomy tubes.Extremities with trace edema. Laboratory Tests 07/01/16 05:50 A/P: 1. Acute on chronic renal failure due to nausea, vomiting and dehydration. Clinically improved with IV hydration and PRBC transfusion. Monitor labs in a.m. 2. Metastatic rectal cancer with progressive disease by worsening tumor markers. We have discussed with the patient that there are no good treatment options available at this point. Patient ready to sign up with hospice upon discharge. office services clerk in contact with [facility] who will follow patient. 3. Bilateral nephrostomy tubes due to obstruction. Patient is due for tube replacement and have consulted Dr. Schneider. Necessary tubes not available today. Hopefully can finish the procedure tomorrow AM and d/c patient home in the afternoon. 4. Bilateral UTI, both organisms sensitive to Bactrim. Will d/c Rocephin and start on Bactrim twice daily.. . AMY MEZA July 01, 2016 16:09
[2016-07-01 16:40] VITALS: BP 122/77
[2016-07-02] VITALS: BP 107/66
[2016-07-02 05:36] LABS: BASOPHILS # (AUTO) 0.1 10^3/uL (0.0-0.1); BASOPHILS % (AUTO) 1 % (0-10); EOSINOPHILS # (AUTO) 0.3 10^3/uL (0.0-0.3); EOSINOPHILS % (AUTO) 4 % (0-10); LYMPHOCYTES # (AUTO) 1.1 X 10^3 (1.0-4.0); LYMPHOCYTES % (AUTO) 17 % (12-44); MEAN CORPUSCULAR HEMOGLOBIN 30 PG (25-34); MEAN CORPUSCULAR HGB CONC 32 G/DL (32-36); MEAN CORPUSCULAR VOLUME 95 FL (80-99); MEAN PLATELET VOLUME 8.6 FL (7.4-10.4); MONOCYTES # (AUTO) 0.7 X 10^3 (0.0-1.0); MONOCYTES % (AUTO) 11 % (0-12); NEUTROPHILS # (AUTO) 4.2 X 10^3 (1.8-7.8); NEUTROPHILS % (AUTO) 67 % (42-75); PLATELET COUNT 346 10^3/uL (130-400); RED BLOOD COUNT 2.94 10^6/uL (4.35-5.85); RED CELL DISTRIBUTION WIDTH 19.2 % (10.0-14.5); WHITE BLOOD COUNT 6.3 10^3/uL (4.3-11.0)
[2016-07-02 05:51] LABS: CALCIUM 8.7 MG/DL (8.5-10.1); CREATININE SERUM 1.11 MG/DL (0.60-1.30); POTASSIUM 3.5 MMOL/L (3.6-5.0)
[2016-07-02] MEDS: PANTOPRAZOLE 40 MG (PROTONIX) TAB PO SCH (06:04)
[2016-07-02] MEDS: TRIM/SULFAMETH 160/800 (SEPTRA DS) TAB PO SCH (06:05)
[2016-07-02 08:00] VITALS: BP 121/71
[2016-07-02] MEDS: morphine ER 100 MG (MS CONTIN) TAB PO SCH (08:37)
[2016-07-02] MEDS: morphine ER 30 MG (MS CONTIN) TAB PO SCH (08:37)
--- NOTE | 2016-07-02 10:47 | Pre-Procedure Progress Note ---
Pre-Procedure Progress Note H&P Reviewed The H&P was reviewed, patient examined and no changes noted. Date H&P Reviewed: July 02, 2016 Time H&P Reviewed: 09:30 Pre-Procedure Diagnosis: Bilateral ureteric obstruction GIANCARLO AMATO MD July 02, 2016 10:47
--- NOTE | 2016-07-02 11:27 | Diagnostic Imaging Report ---
EXAMINATION: Nephrostomy tube change- left Nephrostogram INDICATION: Bilateral ureteric obstruction from pelvic mass. CONSENT: Informed consent was obtained from the patient. The risks, benefits, potential complications and alternatives were reviewed and all questions answered to the patient's satisfaction. The patient's vital signs, cardiac rhythm, and pulse oximetry were observed throughout the procedure by qualified nursing personnel. Sedation: None. Other Medications: None. Contrast: 20 mL of Isovue 300. Fluoroscopy time: 3 minutes and 5 seconds. PROCEDURE: After maximal sterile barrier technique preparation and draping, though the area of the nephrostomy tube and the tube itself, contrast injection is performed via the existing tube. This demonstrates the pigtail loop to be in the renal pelvis. Under fluoroscopic guidance, a glide wire is advanced into the renal pelvis, and via the existing tube, which is within is removed over the guidewire. A new Mac lock 12 Iraqi nephrostomy tube is introduced over the wire and the pigtail in the is formed within the renal pelvis. Contrast injection was performed subsequently to confirm positioning of the tube and perform a nephrostogram. The patient tolerated the procedure well with no immediate complications. FINDINGS: Manual Machinist view of the abdomen demonstrates the the existing nephrostomy tube. The after contrast injection the pigtail appears to be within the renal pelvis. There is a pre-existing ureteric stent in place. Nephrostogram demonstrates complete obstruction in the mid the left ureter. IMPRESSION: 1. Successful exchange of 12 Iraqi left nephrostomy tube. 2. Nephrostogram demonstrates complete left ureteric obstruction. Dictated by: Dictated on workstation # [id number]
--- NOTE | 2016-07-02 11:32 | Diagnostic Imaging Report ---
EXAMINATION: Nephrostomy tube change- right Nephrostogram INDICATION: Bilateral ureteric obstruction from pelvic mass. CONSENT: Informed consent was obtained from the patient. The risks, benefits, potential complications and alternatives were reviewed and all questions answered to the patient's satisfaction. The patient's vital signs, cardiac rhythm, and pulse oximetry were observed throughout the procedure by qualified nursing personnel. Sedation: None. Other Medications: None. Contrast: 19 mL of Isovue 300. Fluoroscopy time: 3 minutes and 5 seconds. PROCEDURE: After maximal sterile barrier technique preparation and draping, though the area of the nephrostomy tube and the tube itself, contrast injection is performed via the existing tube. This demonstrates the pigtail loop to be in the renal pelvis. Under fluoroscopic guidance, a glide wire is advanced into the renal pelvis, and via the existing tube, which is within is removed over the guidewire. A new Mac lock 12 Romansh nephrostomy tube is introduced over the wire and the pigtail in the is formed within the renal pelvis. Contrast injection was performed subsequently to confirm positioning of the tube and perform a nephrostogram. The patient tolerated the procedure well with no immediate complications. FINDINGS: [employer] view of the abdomen demonstrates the the existing nephrostomy tube. The after contrast injection the pigtail appears to be within the renal pelvis. There is a pre-existing ureteric stent in place. Nephrostogram demonstrates complete obstruction in the mid the right ureter. IMPRESSION: 1. Successful exchange of 12 Romansh right nephrostomy tube. 2. Nephrostogram demonstrates complete right ureteric obstruction. Dictated by: Dictated on workstation # [id number]
[2016-07-02] MEDS ORDERED: MORP100T37 PO (15:06)
[2016-07-02] MEDS ORDERED: MORP-34 PO (15:06)
[2016-07-02] MEDS ORDERED: OXYC5TAB71 PO (15:06)
[2016-07-02] MEDS ORDERED: PANT40TA3 PO (15:06)
[2016-07-02] MEDS ORDERED: SULF1TAB35 PO (15:06)
--- NOTE | 2016-07-02 15:10 | Discharge Inst-Simple/Standard ---
Discharge Inst-Standard Discharge Medications New, Converted or Re-Newed RX: RX Given to Pt/Family Patient Instructions/Follow Up Plan of Care/Instructions/FU: F/u at cancer center on 07/30/2016 at 1030 hrs. F/u with radiology for nephrostomy tube replacement on 07/30/2016. Activity as Tolerated: Yes Discharge Diet: No Restrictions AMY MEZA July 02, 2016 15:10
[2016-07-02 15:39] VITALS: BP 121/71
--- NOTE | 2016-07-03 21:16 | DISCHARGE SUMMARY ---
DATE OF SERVICE: 07/02/2016 The patient was admitted to room 431. FINAL DIAGNOSES: 1. Bilateral urinary tract infection with serratia and achromobacter. 2. Metastatic rectal cancer with progressive disease. 3. Nausea, vomiting and dehydration. 4. Acute renal failure due to above. BRIEF HISTORY: The patient is a 55-year-old female with history of metastatic rectal cancer and has been on outpatient palliative chemotherapy. She was admitted on 06/26/2016 with intractable nausea, vomiting and found to be clinically dehydrated. She was in acute renal failure with GFR rate of 18 at the time of admission. She was aggressively hydrated and urine cultures were obtained from bilateral nephrostomy tubes, both of which grew out serratia. One of the cultures also grew out achromobacter. Initially, she was empirically started on antibiotic therapy with Rocephin once daily adjusted for her renal function. With IV hydration, her renal function did improve and the patient did not have significant nausea and vomiting in the hospital which was controlled well with antiemetics initially. As she was improving clinically, clear liquids were started and gradually advanced to regular diet. Once the culture and sensitivity results were obtained, it was found that both the bacteria were sensitive to Bactrim and she was started on oral Bactrim twice daily. She tolerated this well without any nausea, vomiting or abdominal discomforts. The IV fluids were discontinued. She had evidence of progressive rectal cancer by scans done prior to her admission. Because of this discussions were held about best supportive care as no good treatment options were remaining. The patient did not want to travel to participate in any clinical trials. Discussions were held with hospice to continue the supportive care at home. These arrangements could not be completed at the time of discharge and will be managed on an outpatient basis. The patient had previous history of renal failure due to outlet obstruction from progressive cancer and required bilateral nephrostomy tube placement. She was having her tubes replaced every month and it was due during her hospitalization. A consultation was obtained with interventional radiology for this and this was completed on 07/02/2016. The patient has been eating and drinking normally and ambulating normally and hence it was decided to discharge her home with the following instructions and medications: She will continue morphine 130 mg twice daily for pain with oxycodone 5-10 mg every 4 hours as needed for breakthrough pain. She will continue Bactrim twice daily for 10 more days. Rest of her home medications include Protonix 40 mg daily. She is to discontinue chemotherapy treatments at this point. She will follow up at the Cancer Center on 07/30/2016 at 10:30 hours for a office visit and we will try to schedule the bilateral nephrostomy tube replacement on the same day. If she is having any new or unusual symptoms prior to this, she was instructed to contact us. Job ID: [id number] DocumentID: [id number] Dictated Date: 07/02/2016 15:19:13 Airplane Dispatcher Date: 07/03/2016 13:32:02 Dictated By: AMY MEZA MD
== END 2016-07-02 15:27 | disposition home or self-care (01) | DRG 683 ==
LOC: 4TH 17:18
PROVIDERS: ADMIT Internal Medicine Hematology & Oncology; ATTEND Internal Medicine Hematology & Oncology
PROC: 0T25X0Z Change Drainage Device in Kidney, External Approach (ICD-10-PCS; principal; 2016-07-02)
PROC: 0T25X0Z Change Drainage Device in Kidney, External Approach (ICD-10-PCS; 2016-07-02)
DX: N17.9 Acute kidney failure, unspecified (principal); C20 Malignant neoplasm of rectum; N39.0 Urinary tract infection, site not specified; N13.5 Crossing vessel and stricture of ureter without hydronephrosis; D64.9 Anemia, unspecified; I12.9 Hypertensive chronic kidney disease with stage 1 through stage 4 chronic kidney disease, or unspecified chronic kidney disease; N18.9 Chronic kidney disease, unspecified; R11.2 Nausea with vomiting, unspecified; Z66 Do not resuscitate; E86.0 Dehydration; E83.42 Hypomagnesemia; Z92.21 Personal history of antineoplastic chemotherapy
CPT/HCPCS: 36415; 50431; 50435; 80048; 80053; 81000; 83735; 85025; 86850; 86900; 86901; 86920; 87088

== ENCOUNTER → 2016-07-30 | Outpatient (CLI) | payer OTHER ==
[~2016-07-30] VITALS: Ht 162.6 cm; Wt 75.0 kg
[~2016-07-30] MED LIST changes: +IOHEXOL 300 MG/ML 100 ML (OMNIPAQUE 300) VIAL IV ONE; +ONDA8TAB12 PO; +PANT40TA3 PO; +SORB1SOL2 PO; +SULF1TAB35 PO; +TRIF1TAB7 PO
[2016-07-30 10:00] VITALS: BP 124/80
[2016-07-30 10:36] VITALS: BP 120/78
--- NOTE | 2016-07-30 11:09 | Diagnostic Imaging Report ---
EXAMINATION: Nephrostomy tube change/left Nephrostogram INDICATION: Rectal cancer with the ureteric obstruction bilaterally in the pelvis. CONSENT: Informed consent was obtained from the patient. The risks, benefits, potential complications and alternatives were reviewed and all questions answered to the patient's satisfaction. The patient's vital signs, cardiac rhythm, and pulse oximetry were observed throughout the procedure by qualified nursing personnel. Sedation: None. Other Medications: None. Contrast: 20 mL of Isovue 300. Fluoroscopy time: 3 minutes and 21 seconds PROCEDURE: After maximal sterile barrier technique preparation and draping, though the area of the nephrostomy tube and the tube itself, contrast injection is performed via the existing tube. This demonstrates the pigtail loop to be in the renal pelvis. Under fluoroscopic guidance, a glide wire is introduced into the renal pelvis, and the existing tube is removed over the guidewire. A new Mac lock 12 Sudanese nephrostomy tube is introduced over the wire and the pigtail in the is formed within the renal pelvis. Contrast injection was performed subsequently to confirm positioning of the tube and perform a nephrostogram. The patient tolerated the procedure well with no immediate complications. FINDINGS: Physics Tutor view of the abdomen demonstrates the the existing nephrostomy tube. The after contrast injection the pigtail appears to be within the renal pelvis. Ureteric stent is in place. Nephrostogram demonstrates left mild hydronephrosis. There is complete ureteric obstruction at the mid ureteric level with no contrast seen reaching to the urinary bladder despite presence of a ureteric stent. IMPRESSION: 1. Successful exchange of new 12 Sudanese left nephrostomy tube placed. 2. Nephrostogram demonstrates complete mid left ureteric obstruction. Dictated by: Dictated on workstation # [id number]
--- NOTE | 2016-07-30 11:15 | Diagnostic Imaging Report ---
EXAMINATION: Nephrostomy tube change/right Nephrostogram INDICATION: Rectal cancer with the ureteric obstruction bilaterally in the pelvis. CONSENT: Informed consent was obtained from the patient. The risks, benefits, potential complications and alternatives were reviewed and all questions answered to the patient's satisfaction. The patient's vital signs, cardiac rhythm, and pulse oximetry were observed throughout the procedure by qualified nursing personnel. Sedation: None. Other Medications: None. Contrast: 25 mL of Isovue 300. Fluoroscopy time: 3 minutes and 21 seconds PROCEDURE: After maximal sterile barrier technique preparation and draping, though the area of the nephrostomy tube and the tube itself, contrast injection is performed via the existing tube. This demonstrates the pigtail loop to be pulled out into a peripheral calyx. Under fluoroscopic guidance, a glide wire is introduced into the renal pelvis, and the existing tube is removed over the guidewire. A new Mac lock 12 Beninese nephrostomy tube is introduced over the wire and the pigtail in the is formed within the renal pelvis. Contrast injection was performed subsequently to confirm positioning of the tube and perform a nephrostogram. The patient tolerated the procedure well with no immediate complications. FINDINGS: Energy Assistant view of the abdomen demonstrates the the existing nephrostomy tube. The after contrast injection the pigtail appears to be within the renal pelvis. Ureteric stent is in place. Nephrostogram demonstrates right mild hydronephrosis. There is complete ureteric obstruction at the mid ureteric level with no contrast seen reaching to the urinary bladder despite presence of a ureteric stent. IMPRESSION: 1. Successful exchange of new 12 [place]inese right nephrostomy tube placed. 2. Nephrostogram demonstrates complete mid right ureteric obstruction. Dictated by: Dictated on workstation # [id number]
== END ==
LOC: RAD 09:45
PROVIDERS: ATTEND Internal Medicine Hematology & Oncology
DX: N13.30 Unspecified hydronephrosis (principal)
CPT/HCPCS: 50431; 50435

== ENCOUNTER 2016-09-10 09:56 | Outpatient (RCR) | payer OTHER ==
[2016-06-26 16:30] LABS: BASOPHILS # (AUTO) 0.1 10^3/uL (0.0-0.1); BASOPHILS % (AUTO) 1 % (0-10); EOSINOPHILS # (AUTO) 0.2 10^3/uL (0.0-0.3); EOSINOPHILS % (AUTO) 2 % (0-10); LYMPHOCYTES # (AUTO) 1.1 X 10^3 (1.0-4.0); LYMPHOCYTES % (AUTO) 12 % (12-44); MEAN CORPUSCULAR HEMOGLOBIN 30 PG (25-34); MEAN CORPUSCULAR HGB CONC 32 G/DL (32-36); MEAN CORPUSCULAR VOLUME 95 FL (80-99); MEAN PLATELET VOLUME 8.3 FL (7.4-10.4); MONOCYTES # (AUTO) 0.7 X 10^3 (0.0-1.0); MONOCYTES % (AUTO) 7 % (0-12); NEUTROPHILS # (AUTO) 7.2 X 10^3 (1.8-7.8); NEUTROPHILS % (AUTO) 78 % (42-75); PLATELET COUNT 446 10^3/uL (130-400); RED BLOOD COUNT 2.93 10^6/uL (4.35-5.85); RED CELL DISTRIBUTION WIDTH 20.9 % (10.0-14.5); WHITE BLOOD COUNT 9.2 10^3/uL (4.3-11.0)
[2016-06-26 17:04] LABS: ALBUMIN 3.8 G/DL (3.2-4.5); BILIRUBIN,TOTAL 0.7 MG/DL (0.1-1.0); CALCIUM 9.3 MG/DL (8.5-10.1); CREATININE SERUM 2.78 MG/DL (0.60-1.30); POTASSIUM 2.8 MMOL/L (3.6-5.0); TOTAL PROTEIN 8.6 G/DL (6.4-8.2)
[2016-06-26 17:58] LABS: BILIRUBIN,URINE NEGATIVE (NEGATIVE); KETONES,URINE NEGATIVE (NEGATIVE); LEUKOCYTE ESTERASE ,URINE 3+ (NEGATIVE); NITRITE,URINE NEGATIVE (NEGATIVE); PH,URINE 5 (5-9); PROTEIN,URINE 3+ (NEGATIVE); UROBILINOGEN,URINE NORMAL (NORMAL)
[2016-06-26 18:18] LABS: WBC,URINE TNTC /HPF
[2016-07-30 11:01] LABS: BASOPHILS % (AUTO) 0 % (0-10); EOSINOPHILS % (AUTO) 0 % (0-10); LYMPHOCYTES # (AUTO) 0.7 X 10^3 (1.0-4.0); LYMPHOCYTES % (AUTO) 7 % (12-44); MEAN CORPUSCULAR HEMOGLOBIN 31 PG (25-34); MEAN CORPUSCULAR HGB CONC 34 G/DL (32-36); MEAN CORPUSCULAR VOLUME 91 FL (80-99); MEAN PLATELET VOLUME 7.6 FL (7.4-10.4); MONOCYTES # (AUTO) 0.6 X 10^3 (0.0-1.0); MONOCYTES % (AUTO) 6 % (0-12); NEUTROPHILS # (AUTO) 8.1 X 10^3 (1.8-7.8); NEUTROPHILS % (AUTO) 86 % (42-75); PLATELET COUNT 258 10^3/uL (130-400); RED BLOOD COUNT 3.48 10^6/uL (4.35-5.85); RED CELL DISTRIBUTION WIDTH 15.1 % (10.0-14.5); WHITE BLOOD COUNT 9.5 10^3/uL (4.3-11.0)
[2016-07-30 11:49] LABS: ALBUMIN 3.3 G/DL (3.2-4.5); BILIRUBIN,TOTAL 0.7 MG/DL (0.1-1.0); CALCIUM 8.8 MG/DL (8.5-10.1); CREATININE SERUM 1.52 MG/DL (0.60-1.30); TOTAL PROTEIN 6.9 G/DL (6.4-8.2)
[2016-07-30 11:57] LABS: POTASSIUM 2.4 MMOL/L (3.6-5.0)
[~2016-09-10 09:56] MED LIST changes: -CATHETER FLUSH 10 ML SYR IVP PRN; -IOHEXOL 300 MG/ML 30 ML (OMNIPAQUE 300) VIAL IV ONE; +NS IV 1000 ML (CANCER CTR) 1,000 ML IV ONE; +ONDANSETRON 8 MG, DEXAMETHASONE 4 MG/NS 50 ML IVPB (Cancer Ctr) IV ONE
== END 2016-09-24 | disposition home or self-care (01) ==
LOC: ONC 09:56
PROVIDERS: ATTEND Internal Medicine Hematology & Oncology
DX: C20 Malignant neoplasm of rectum (principal); I10 Essential (primary) hypertension; R82.99 Other abnormal findings in urine; Z79.899 Other long term (current) drug therapy; Z92.21 Personal history of antineoplastic chemotherapy; Z92.3 Personal history of irradiation
CPT/HCPCS: 36415; 36591; 80053; 81000; 85025; 87077; 87088; 87186; 96361; 96374; 99213

== ENCOUNTER → 2016-09-10 | Outpatient (CLI) | payer OTHER ==
[2016-07-30 10:36] VITALS: BP 120/78
[~2016-09-10] MED LIST changes: +CATHETER FLUSH 10 ML SYR IVP PRN; -IOHEXOL 300 MG/ML 100 ML (OMNIPAQUE 300) VIAL IV ONE; +IOHEXOL 300 MG/ML 30 ML (OMNIPAQUE 300) VIAL IV ONE
== END ==
LOC: RAD 09:21
PROVIDERS: ATTEND Internal Medicine Hematology & Oncology
DX: N13.30 Unspecified hydronephrosis (principal)